=== PATIENT | male | born 1935 | race Caucasian/White ===

== ENCOUNTER 2019-12-12 12:03 | Outpatient (CLI) | payer MEDICARE, SELFPAY ==
--- NOTE | ~2019-12-12 | XR_ITS ---
EXAMINATION: XR hip RT min 2V DATE: 12/12/2019 12:27 INDICATION: Right hip pain. TECHNIQUE: 3 views of right hip were obtained. COMPARISON: None. FINDINGS: Bone alignment is normal. No fracture. There is mild right hip osteoarthritis. IMPRESSION: 1. Mild right hip osteoarthritis. Reviewed, dictated and finalized at location A.
--- NOTE | ~2019-12-12 | XR_ITS ---
EXAMINATION: XR knee RT 3V DATE: 12/12/2019 12:26 INDICATION: Right knee pain. TECHNIQUE: 3 views of right knee were obtained. COMPARISON: None. FINDINGS: Bone alignment is normal. No fracture. There is moderate osteoarthritis of medial compartme nt and mild osteoarthritis of lateral and patellofemoral compartments. No knee joint effusion. IMPRESSION: 1. Moderate right knee osteoarthritis. Reviewed, dictated and finalized at location A.
== END 2019-12-12 12:04 | disposition home or self-care (01) ==
LOC: ANHIMG 12:15
PROVIDERS: PCP Family Medicine; Visit Provider Family Medicine
DX: M17.11 Unilateral primary osteoarthritis, right knee (principal); M16.11 Unilateral primary osteoarthritis, right hip
CPT/HCPCS: 73502; 73562

== ENCOUNTER 2020-09-14 12:40 | Emergency (ER) | payer MEDICARE, SELFPAY ==
[2020-09-14 12:45] VITALS: BP 123/82; PULSE 76; RESP 16; TEMP 36.8; O2SAT 98
--- NOTE | 2020-09-14 12:56 | ED.UPPEXIN ---
HPI - Extremity Injury (Upper) General Chief Complaint: Extremity Injury, Upper Stated Complaint: POSSIBLE INFECTED FINGER Source: patient Mode of arrival: ambulatory Limitations: no limitations History of Present Illness HPI narrative: this is a an 85-year-old male that presents after he was cut approximately 3 weeks ago and there is a an area that is healing on the left ring finger with some mild swelling warmth and tenderness with no fever chills no no recent injury. complaint: injury to: left Other Extremity Injury: Left: fingers ( left ring finger with some mild tenderness and swelling) Handedness: right Place: home Severity: mild Related Data Home Medications Medication Instructions Recorded Confirmed albuterol sulfate 90 mcg/actuation 2 inhalation INHALATION Q6H PRN 12/11/19 09/14/20 breath activated powder inhaler budesonide-formoterol HFA 160 2 puff INHALATION Q12H 12/11/19 09/14/20 mcg-4.5 mcg/actuation aerosol inhaler etanercept 25 mg SUB-Q WEEKLY 12/11/19 09/14/20 simvastatin 40 mg tablet 40 mg PO DAILY 12/11/19 09/14/20 Allergies Allergy/AdvReac Type Severity Reaction Status Date / Time No Known Allergies Allergy Verified 09/14/20 12:54 Review of Systems Review of Systems: All systems reviewed & are unremarkable except as noted in HPI and below PMFSH Past Medical History Medical History COPD (chronic obstructive pulmonary disease) History of tobacco abuse JANIS (obstructive sleep apnea) Osteopenia Rheumatoid arthritis SCC (squamous cell carcinoma), scalp/neck Family History Family History Sibling Family history of arthritis Acute myocardial infarction Family history of lung cancer Father Family history of malignant neoplasm Family history of pancreatic cancer Mother Family history of malignant neoplasm of cervix Acute myocardial infarction Social History Social History Smoking status: Never smoker Second hand tobacco smoke exposure: No Smoking end date: 04/10/89 Alcohol intake: never Exam Const: General: no acute distress and alert Orientation/consciousness: patient oriented x3 HENMT: Head: normal to inspection Eyes: Conjunctivae: conjunctivae normal Pupils: Equal, round and reactive pupils present Neck: Neck: normal visual inspection Chest: Chest palpation & inspection: normal inspection of the chest Resp: Effort & Inspection: normal respiratory effort Cardio: Rate: regular rate Rhythm: regular rhythm GI: GI Palp: Yes Soft to palpation Skin: Other: Area of erythema left ring finger mildly tender and swollen Neuro: General: patient oriented x3 Extrem: General: normal to inspection and no pedal edema Psych: Mental Status: mental status grossly normal Course Course Emergency Course: assessed patient's left ring finger does not appear to have any foreign objects, no recent injury and will send antibiotic to his pharmacy and advised follow-up with his primary care doctor Critical Care Time Critical Care Time Critical Care Time: No Discharge Plan Discharge Clinical Impression: Cellulitis Qualifiers: Site of cellulitis: extremity Site of cellulitis of extremity: finger Laterality: left Qualified Code(s): L03.012 - Cellulitis of left finger Patient Disposition: Home, Self-Care Condition: Stable Instructions: Antibiotic Form, Cellulitis (ED) Additional Instructions: advised patient to take medicine as prescribed and follow-up with his primary care physician if symptoms persist or worsen. Prescriptions: New amoxicillin-pot clavulanate [Augmentin] 875-125 mg tablet 1 tablet PO Q12H Qty: 20 RF: 0 No Action Enbrel 25 mg/0.5 mL (0.5) syringe 25 mg SUB-Q WEEKLY RF: 0 albuterol sulfate 90 mcg/actuation aerosol powdr breath activated 2 inhalati
== END 2020-09-14 13:12 | disposition home or self-care (01) ==
PROVIDERS: Emergency Provider Emergency Medicine; PCP Family Medicine
DX: L03.012 Cellulitis of left finger (principal)
CPT/HCPCS: 99283

== ENCOUNTER 2022-11-18 09:37 | Emergency (ER) | payer MEDICARE, SELFPAY ==
[2022-11-18] VITALS (22 sets, daily range): BP systolic 114–156; BP diastolic 56–103; PULSE 70–81; RESP 20; TEMP 36.3–36.4; O2SAT 91–100
--- NOTE | ~2022-11-18 | CT_ITS ---
EXAMINATION: CT brain wo con DATE: 11/18/2022 10:54 INDICATION: Head injury. TECHNIQUE: Computed tomography (CT) of the head was performed without intravenous contrast. The mA wa s adjusted according to patient size. Iterative reconstruction technique was employed. The dose-lengt h product was 681.00 mGy-cm. COMPARISON: None FINDINGS: There are scattered areas of low attenuation in the cerebral white matter, which is within normal limits for the patient's age. There is no intracranial hemorrhage, acute infarction, or abnorm al intracranial mass lesion. The ventricles are normal in size. There is mucosal thickening in the pa ranasal sinuses. There are likely changes of ocular lens replacement surgeries. There is a small left mastoid effusion. IMPRESSION: 1. Normal aging brain. Reviewed, dictated and finalized at location A. IMPRESSION: 1. Normal aging brain.
--- NOTE | ~2022-11-18 | CT_ITS ---
EXAMINATION: CT cervical spine wo con DATE: 11/18/2022 10:54 INDICATION: Head injury. TECHNIQUE: Computed tomography (CT) of the cervical spine was performed without intravenous contrast. Automated exposure control and iterative reconstruction technique were employed. The dose-length pro duct was 518.34 mGy-cm. COMPARISON: None FINDINGS: The visualized portions of the lung apices demonstrate emphysema. There is a small left mas toid effusion. There is 5 degrees dextrocurvature of cervical spine. Vertebral body heights are suad l. There is interbody fusion at C3-C4. There is mildly decreased disc height at C2-C3 and C4-C5. Ther e is moderately decreased disc height at C5-C6 and C6-C7. There are changes of posterior fusion proce dure at T1-T2 including fusion of the spinous processes with a [place] of wire. The following disc lev els are specifically discussed: C2-C3: There is mild bilateral uncovertebral joint osteoarthritis. There is severe right and mild lef t facet joint osteoarthritis. There is no neural foraminal stenosis. There is mild central canal sten osis. C3-C4: There is no uncovertebral joint hypertrophy. There is ankylosis of the facet joints without hy pertrophy. There is no neural foraminal stenosis. There is no central canal stenosis. C4-C5: There is severe right and moderate left uncovertebral joint osteoarthritis. There is severe bi lateral facet joint osteoarthritis. There is moderate right and mild left neural foraminal stenosis. There is mild central canal stenosis. C5-C6: There is moderate and severe left uncovertebral joint osteoarthritis. There is severe right an d moderate left facet joint osteoarthritis. There is mild right and moderate left neural foraminal st enosis. There is mild central canal stenosis. C6-C7: There is moderate bilateral uncovertebral joint osteoarthritis. There is severe right and mild left facet joint osteoarthritis. There is mild bilateral neural foraminal stenosis. There is mild ce ntral canal stenosis. C7-T1: There is no uncovertebral joint osteoarthritis. There is mild bilateral facet joint osteoarthr itis. There is no neural foraminal stenosis. There is no central canal stenosis. IMPRESSION: 1. No fracture. 2. Moderate cervical spondylosis. Reviewed, dictated and finalized at location A.
--- NOTE | ~2022-11-18 | CT_ITS ---
EXAMINATION: CT chest abdomen pelvis wo con DATE: 11/18/2022 10:56 INDICATION: Fall with head injury TECHNIQUE: Computed tomography (CT) of the chest, abdomen, and pelvis was performed without intraveno us contrast. Automated exposure control and iterative reconstruction technique were employed. The dos e-length product was 518.34 mGy-cm. COMPARISON: CT studies dated 10/17/2014 and 11/20/2013 FINDINGS: CHEST CT: Moderate emphysema. 3.7 x 2.3 cm pleural-based mass along the posterior right lower lobe. There is an additional 8 mm subpleural nodule in the right lower lobe along the posterior aspect of the right he midiaphragm. Calcified nodule in the left lower lobe and calcified left hilar lymph node consistent w ith old granulomatous disease. There are a few additional scattered bilateral <4 mm pulmonary nodules . Unilateral mild groundglass opacities and septal line thickening in the peripheral right lower lobe with associated honeycombing which has increased since the prior studies suggesting progression of u sual interstitial pneumonia (UIP) pattern chronic interstitial lung disease. Heart size is normal. At herosclerotic coronary artery calcific lesion. No pericardial or pleural effusion. Aortic valve calci fication. Thoracic aorta is normal in caliber. No pathologically enlarged thoracic lymphadenopathy. S mall sliding-type hiatal hernia. Mild to moderate thoracic spondylosis. Cerclage wire about the T1 an d T2 spinous processes. No acute osseous abnormality. ABDOMEN/PELVIS CT: There are calcified gallstones in the dependent aspect of the otherwise normal appearing gallbladder. Additional 6 mm calcified gallstone in the distal common bile duct with mild dilation of the common bile duct to 11 mm and with mild intrahepatic biliary ductal dilation. Splenic calcification consiste nt with old granulomatous disease. Couple punctate peripheral calcifications at the head and tail of the pancreas, likely sequela of chronic pancreatitis. Bilateral adrenal glands are normal. There are bilateral renal cysts the largest in each kidney measuring up to 2.1 cm. There is moderate colonic di verticulosis with a sigmoid predominance. There is no adjacent inflammatory change to suggest divert iculitis. Small bowel and appendix are normal. Bladder is normal. No free intraperitoneal gas or flui d. No pathologically enlarged abdominal or pelvic lymphadenopathy. Moderate to severe lumbar spondylo sis with chronic L1 compression fracture with two thirds anterior vertebral body height loss. IMPRESSION: 1. Moderate emphysema with 3.7 x 2.3 cm pleural-based mass in the right lower lobe which is concernin g for primary bronchogenic carcinoma. If patient is a biopsy candidate not requiring supplemental oxy gen at baseline would recommend percutaneous CT-guided biopsy for further evaluation. 2. Cholelithiasis and choledocholithiasis with mild intra and extra hepatic biliary ductal dilation. Correlate with liver function tests and consider ERCP for stone extraction as clinically indicated. 3. Diverticulosis. Reviewed, dictated and finalized at location B. IMPRESSION: 1. Moderate emphysema with 3.7 x 2.3 cm pleural-based mass in the right lower l obe which is concerning for primary bronchogenic carcinoma. If patient is a bio psy candidate not requiring supplemental oxygen at baseline would recommend per cutaneous CT-guided biopsy for further evaluation. 2. Cholelithiasis and choledocholithiasis with mild intra and extra hepatic julia iary ductal dilation. Correlate with liver function tests and consider ERCP for stone extraction as clinically indicated. 3. Diverticulosis.
--- NOTE | 2022-11-18 10:02 | ED.FALL ---
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 He is not sure what happened he has tried be real careful. he was standing 7 or 8 ft up on top of the tractor trying to put a 23 in x 9 ft piece of garage door paneling up in his barn rafters all by himself. Fell from the truck laceration left ear and has multiple contusions. denies any chest pain shortness of breath back pain. Says his hips are sore especially his left. Skin tears to his elbows left shoulder left leg. denies any shortness of breath difficulty breathing cough sore throat runny nose dizziness lightheadedness headache neck pain numbness or tingling nausea vomiting diarrhea lumps or bumps or swelling. Previously well. past medical history: Rheumatoid arthritis COPD hyperlipidemia Past surgical history: Upper back surgery tonsillectomy allergies no known allergies Related Data Home Medications Medication Instructions Recorded Confirmed albuterol sulfate 90 mcg/actuation 2 inhalation inhalation Q6H PRN 12/11/19 11/18/22 breath activated powder inhaler Wheezing etanercept 25 mg/0.5 mL (0.5 mL) 25 mg subcut .every other week 12/15/20 11/18/22 subcutaneous syringe (Enbrel) simvastatin 10 mg tablet 10 mg PO DAILY 11/18/22 11/18/22 Allergies Allergy/AdvReac Type Severity Reaction Status Date / Time No Known Allergies Allergy Verified 11/18/22 09:38 [facility] Past Medical History Medical History COPD (chronic obstructive pulmonary disease) Encounter for immunization History of tobacco abuse JANIS (obstructive sleep apnea) Osteopenia Rheumatoid arthritis SCC (squamous cell carcinoma), scalp/neck Weakness of right hip Family History Family History Sibling Family history of arthritis Acute myocardial infarction Family history of lung cancer Father Family history of malignant neoplasm Family history of pancreatic cancer Mother Family history of malignant neoplasm of cervix Acute myocardial infarction Social History Social History (Updated 04/15/22 @ 09:41 by Monserrat Santos MA) Smoking packs per day: 1 Smoking cigarettes per day: 20.0 Years smoked: 30 Smoking pack-years: 30.00 Smoking status: Former smoker Second hand tobacco smoke exposure: Yes Smoking end date: 04/10/88 Alcohol intake: never Substance use: never Substance use type: does not use Gender identity (if verbalized by the patient): Male Exam Narrative: Elderly white male alert and oriented x4. Cooperative no apparent distress. Head: Nontender his left ear is lacerations through the auricle. Eyes conjunctiva pink sclera nonicteric extraocular movements are intact. Tympanic membranes are normal. Oropharynx clear moist mucous membranes without exudates. Neck is supple nontender no lymphadenopathy. Back is nontender. lungs clear heart is regular rate rhythm without murmurs gallops or rubs. Abdomen is soft nontender no hepatosplenomegaly or masses no CVA tenderness no abdominal bruits. Extremities no cyanosis clubbing or edema. Left shoulder is bruised is of got a small skin tear. Left elbow skin contusion with large amount of skin tear. Right elbow small skin tears. Upper extremities have full range of motion are nontender. Radial pulse +2 got a bruise swelling his left thigh proximal. Hips have full range of motion are nontender. Small skin tears lower left leg. All joints in the lower extremities show full range of motion nontender. DP and PT are +2 for lower extremities. Neurological motor and sensory are normal. Is oriented x4 speech is normal. MDM - Fall MDM Narrative Medical decision making narrative: Patient is p
--- NOTE | 2022-11-18 10:03 | ECG_ITS ---
Measurements Intervals [place] Rate: 67 P: 72 TX: 191 QRS: 49 QRSD: 101 T: 8 QT: 393 QTc: 417 Interpretive Statements SINUS RHYTHM WITH OCCASIONAL VENTRICULAR PREMATURE COMPLEXES NONSPECIFIC ST ABNORMALITY ABNORMAL ECG NO PREVIOUS ECG AVAILABLE FOR COMPARISON Electronically Signed On 11-19-2022 12:43:20 CDT by Mike Joseph M.D.
--- NOTE | 2022-11-18 10:13 | PC.NURSE ---
ERP spoke with about need for geriatric trauma transfer, Patient and request [facility].
[2022-11-18 10:31] LABS: Hematocrit 43.1 % (37.0-46.0); Immature Platelet Fraction Pct 3.6 % (1.0-7.0); Mean Corpuscular HGB Conc 32.5 g/dL (32.0-36.0); Mean Corpuscular Hemoglobin 31.4 pg (27.0-31.0); Mean Corpuscular Volume 96.6 fL (78.0-102.0); Mean Platelet Volume 11.5 fl (8.7-11.0); Platelet Count Result 52 K/mm3 (150-420); Red Blood Count 4.46 M/mm3 (4.70-6.10); Red Cell Distribution Width 12.9 % (11.6-14.4); White Blood Count 7.6 K/mm3 (4.8-10.8)
[2022-11-18 10:47] LABS: Partial Thromboplastin Time 23.7 SEC (23.90-30.70); Prothrombin Time 10.5 Seconds (9.50-12.10)
[2022-11-18 10:49] LABS: Alanine Aminotransferase 15 U/L (16-63); Albumin Level 3.3 g/dL (3.4-5.0); Alkaline Phosphatase 42 U/L (46-116); Anion Gap 7 mmol/L (8-16); Aspartate Amino Transferase 15 U/L (15-37); Bilirubin,Total 0.5 mg/dL (0.00-1.00); Blood Urea Nitrogen 22 mg/dL (7-18); Carbon Dioxide 29 mmol/L (21-32); Chloride 102 mmol/L (98-108); Estimated Glomerular Filt Rate > 60; Glucose 111 mg/dL (70-99); Osmolality Calculated 290 mOsm/kg (285-295); Potassium 4.5 mmol/L (3.5-5.1); Sodium 138 mmol/L (136-145); Total Protein 7.3 g/dL (6.4-8.2); Troponin I 5.2 ng/L (0.00-60.4)
[2022-11-18 11:07] LABS: Hematocrit 40.4 % (37.0-46.0); Hemoglobin 13.8 g/dL (12.4-15.3); Mean Corpuscular HGB Conc 34.2 g/dL (32.0-36.0); Mean Corpuscular Hemoglobin 31.8 pg (27.0-31.0); Mean Corpuscular Volume 93.1 fL (78.0-102.0); Mean Platelet Volume 9.1 fl (8.7-11.0); Platelet Count Result 187 K/mm3 (150-420); Red Blood Count 4.34 M/mm3 (4.70-6.10); Red Cell Distribution Width 12.7 % (11.6-14.4); White Blood Count 9.4 K/mm3 (4.8-10.8)
== END 2022-11-18 12:43 | disposition short-term general hospital (02) ==
PROVIDERS: Emergency Provider Emergency Medicine; PCP Family Medicine
DX: S01.312A Laceration without foreign body of left ear, initial encounter (principal); S51.012A Laceration without foreign body of left elbow, initial encounter; S41.012A Laceration without foreign body of left shoulder, initial encounter; S81.812A Laceration without foreign body, left lower leg, initial encounter; R91.8 Other nonspecific abnormal finding of lung field; M06.9 Rheumatoid arthritis, unspecified; J44.9 Chronic obstructive pulmonary disease, unspecified; E78.5 Hyperlipidemia, unspecified; Z87.891 Personal history of nicotine dependence; Z79.899 Other long term (current) drug therapy; Z85.828 Personal history of other malignant neoplasm of skin; W30.89XA Contact with other specified agricultural machinery, initial encounter
CPT/HCPCS: 36415; 70450; 71250; 72125; 74176; 80053; 84484; 85027; 85055; 85610; 85730; 93005; 99285

== ENCOUNTER 2022-12-02 11:12 | Outpatient (CLI) | payer MEDICARE, SELFPAY ==
[2022-11-29 16:04] VITALS: BMI 26.5
--- NOTE | 2022-11-29 16:05 | PC.NURSE ---
Pre Radiology instructions Report to the IMAGING ENTRANCE on date _12/02/22____ at time __10:30AM for procedure Time: _11:00AM___ YOU MAY BE MONITORED AT HOSPITAL FOR UP TO 4 HOURS AFTER YOUR PROCEDURE. NO LABS NEEDED. A visitor will be allowed to accompany the patient into the hospital. You and your visitor will be asked to self-screen and do not enter if you have any COVID symptoms. A mask is OPTIONAL within the hospital. Patients are to have no food or drink 6 hours prior to procedure time Driving will be restricted after the procedure, you must have a person to drive you home. Labs will be drawn in preop area and once reviewed, you will be taken to radiology area for procedure. When the procedure is completed, you will be taken to outpatient where you will be monitored for several hours. You may have one visitor in this area. Other than holding anti-coagulants, patient may take other medication(s) as scheduled. Prior to your appointment date patients are instructed to hold anti-coagulants after discussing with ordering provider to stop. If unable to discontinue anti-coagulants please notify radiologist. ? No aspirin or warfarin (Coumadin) for 7 days prior to the procedure. ? No clopidogrel (Plavix), ticagrelor (Brilinta), prasugrel (Effient) or dabigatran (Pradaxa) for 5 days prior to the procedure. ? No rivaroxaban (Xarelto), apixaban (Eliquis), dipyridamole (Aggrenox or Persantine) or cilostazol (Pletal) for 2 days prior to the procedure. Medications to discontinue per physician: __NONE Date to take last dose: Please leave all valuables, including medications, at home the day of procedure. The hospital will not accept responsibility for valuables. Wear comfortable, loose fitting clothing.? Follow any additional instructions given to you from ordering provider. Telephone instructions given to __PATIENT'S WIFE and asked if any additional questions and then verbalized understanding. Patient advised to call scheduling provider office or registration scheduling [phone] if any additional questions.
[2022-12-02] VITALS (11 sets, daily range): BP systolic 136–152; BP diastolic 68–84; PULSE 58–66; RESP 16–19; O2SAT 98–100
--- NOTE | ~2022-12-02 | XR_ITS ---
EXAMINATION: XR chest 1V portable DATE: 12/02/2022 13:02 INDICATION: Right lung nodule status post percutaneous biopsy. TECHNIQUE: A single frontal view of the chest was obtained on 2 radiographs. COMPARISON: Chest single view at 11:[address] 11/18/2022 FINDINGS: There are lucencies and interstitial opacities throughout the lungs bilaterally. No pleural effusion or pneumothorax. The heart size is normal. There is wire fixation of cervical spine. IMPRESSION: 1. Diffuse lung disease, likely a combination of emphysema and chronic interstitial lung disease. Reviewed, dictated and finalized at location A. IMPRESSION: 1. Diffuse lung disease, likely a combination of emphysema and chronic intersti tial lung disease.
--- NOTE | ~2022-12-02 | CT_ITS ---
EXAMINATION: CT biopsy lung w/imaging DATE: 12/02/2022 11:54 INDICATION: Right lung lower lobe mass. TECHNIQUE: The procedure including the risks, benefits, and alternatives and possibility of chest tub e placement were discussed with the patient. Risks discussed included infection, hemorrhage, approxim ately 1/3 risk of pneumothorax, approximately 1/10 risk of pneumothorax severe enough to warrant ches t tube placement, and rarely . The patient understood the risks and agreed to proceed. The patie nt was placed prone. The skin overlying the right lung lower lobe was prepped and draped in sterile fashion. Anesthetic was administered with 1% lidocaine subcutaneously. A 19 gauge outer needle was advanced under CT guidance to the lesion of interest. A 20 gauge core biopsy needle was then used to obtain 3 core biopsy specimens. The needle was removed and the entry site was cleaned and dressed. Th e mA was adjusted according to patient size. Iterative reconstruction technique was employed. The dos e-length product was 172.83 mGy-cm. There were no immediate complications. FINDINGS: CT images demonstrate the outer needle tip adjacent to a 3.5 x 2.7 cm pleural-based mass in right lung lower lobe.. IMPRESSION: 1. CT-guided core needle biopsy of a mass in right lung lower lobe. Reviewed, dictated and finalized at location A.
--- NOTE | ~2022-12-02 | XR_ITS ---
XR chest 1V 12/02/2022 11:49 Indication: Status post right lung biopsy Procedure: AP view of the chest Comparison: 07/17/2012 Findings: Heart size normal. There is emphysema. There is bibasilar scarring. There are prominent julia ateral nipple shadows. There is right apical scarring. No pneumothorax is identified. No acute osseou s abnormality. Impression: 1: No pneumothorax identified post biopsy. Reviewed, dictated and finalized at location B. Impression: 1: No pneumothorax identified post biopsy.
--- NOTE | ~2022-12-02 | XR_ITS ---
EXAMINATION: XR chest 1V portable DATE: 12/02/2022 14:37 INDICATION: Right lung nodule status post percutaneous biopsy. TECHNIQUE: A single frontal view of the chest was obtained. COMPARISON: Chest single view at 12:49 PM FINDINGS: There are lucencies and interstitial opacities throughout the lungs. No pleural effusion or pneumothorax. The heart size is normal. There is wire fixation of the cervical spine. IMPRESSION: 1. Diffuse lung disease, likely a combination of emphysema and chronic interstitial lung disease. Reviewed, dictated and finalized at location A. IMPRESSION: 1. Diffuse lung disease, likely a combination of emphysema and chronic intersti tial lung disease.
== END 2022-12-02 14:55 | disposition home or self-care (01) ==
PROVIDERS: PCP Family Medicine; Referring Provider Nurse Practitioner Family; Visit Provider Radiology Diagnostic Radiology
PROC: BB24ZZZ Computerized Tomography (CT Scan) of Bilateral Lungs (ICD-10-PCS; CPT 32408; principal; 2022-12-02 11:00)
DX: C34.31 Malignant neoplasm of lower lobe, right bronchus or lung (principal)
CPT/HCPCS: 32408; 71045; 88305; 88342

== ENCOUNTER 2022-12-14 11:44 | Outpatient (CLI) | payer MEDICARE, SELFPAY ==
[2022-12-14 12:01] LABS: Basophils Absolute Auto 0.1 K/mm3 (0.0-0.1); Basophils Percent Auto 0.9 % (0.2-1.2); Eosinophils Absolute Auto 0.4 K/mm3 (0-0.3); Eosinophils Percent Auto 5.3 % (0-4.4); Hematocrit 40.9 % (42.0-52.0); Immature Granulocyte Absolute 0.02 K/mm3 (0.00-0.031); Immature Granulocyte Percent A 0.3 % (0-0.5); Lymphocytes Absolute Auto 2.32 K/mm3 (0.9-3.2); Mean Corpuscular HGB Conc 34.2 g/dl (32-36); Mean Corpuscular Hemoglobin 32.6 pg (26-34); Mean Corpuscular Volume 95.1 fl (80-100); Monocytes Absolute Auto 0.8 K/mm3 (0.1-0.6); Monocytes Percent Auto 12.2 % (2.6-8.5); Neutrophils Absolute Auto 3.2 K/mm3 (1.3-6.7); Neutrophils Percent Auto 47.3 % (45.5-73.1); Platelet Count Result 209 k/mm3 (150-375); Red Cell Distribution Width 12.8 % (11.5-14.5); White Blood Count 6.8 K/mm3 (4.5-10.0)
[2022-12-14 12:49] LABS: Alanine Aminotransferase 26 U/L (6-50); Albumin Level 4.2 g/dL (3.5-5.1); Alkaline Phosphatase 62 U/L (38-126); Anion Gap 6 mmol/L (8-16); Aspartate Amino Transferase 26 U/L (17-59); Bilirubin,Total 0.5 mg/dL (0.2-1.3); Blood Urea Nitrogen 21 mg/dL (9-20); Calcium 9.4 mg/dL (8.4-10.2); Carbon Dioxide 26 mmol/L (22-30); Chloride 103 mmol/L (98-107); Estimated Glomerular Filt Rate > 60; Glucose 93 mg/dL (65-110); Potassium 5.4 mmol/L (3.4-5.0); Sodium 135 mmol/L (137-145)
== END 2022-12-14 11:45 | disposition home or self-care (01) ==
LOC: ANHLAB 11:47
PROVIDERS: Internal Medicine; PCP Family Medicine; Visit Provider Internal Medicine Hematology & Oncology
DX: C34.90 Malignant neoplasm of unspecified part of unspecified bronchus or lung (principal)
CPT/HCPCS: 36415; 80053; 85025

== ENCOUNTER 2022-12-22 07:20 | Outpatient (CLI) | payer MEDICARE, SELFPAY ==
--- NOTE | ~2022-12-22 | MR_ITS ---
EXAMINATION: MR brain/brain stem wo/w con DATE: 12/22/2022 08:38 INDICATION: Small cell lung cancer. TECHNIQUE: Magnetic resonance imaging (MRI) of the brain and brainstem was performed without and with 15 mL MultiHance intravenous contrast. COMPARISON: Head CT 11/18/22 FINDINGS: There are scattered areas of nonspecific increased T2-weighted signal intensity in the cere bral white matter. There is no intracranial hemorrhage, acute infarction, or abnormal intracranial ma ss lesion. The ventricles are normal in size. There is mucosal thickening in the paranasal sinuses. T here are likely changes of ocular lens replacement surgeries. The mastoid air cells are normal. IMPRESSION: 1. No evidence of metastatic disease. 2. Mild nonspecific cerebral white matter disease, which likely represents chronic small vessel ische donald disease. Reviewed, dictated and finalized at location A. IMPRESSION: 1. No evidence of metastatic disease. 2. 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
--- NOTE | ~2022-12-22 | PE_ITS ---
EXAMINATION: PET skull to mid thigh DATE: 12/22/2022 11:42 INDICATION: Small cell lung cancer. TECHNIQUE: Blood glucose level was 78 mg/dL. 9.329 mCi of 18-fluorodeoxyglucose (18-FDG) was administ ered i.v. Low dose computed tomography (CT) images were acquired from the base of the brain to the pr oximal thighs for attenuation correction and anatomic localization. Automated exposure control was em ployed. Dose-length product (DLP) was 765 mGy-cm. Positron emission tomography (PET) images were acqu ired in the same distribution. COMPARISON: CT chest, abdomen, and pelvis 11/18/2022 FINDINGS: Head/neck: There are no pathologically enlarged lymph nodes. Chest: There is moderate emphysema. In the right lower lobe, there is an 11 mm nodule without increas ed activity. In the right lower lobe, there is a 3.6 x 2.4 cm mass abutting the pleura with maximum S UV of 13.4. In the right lower lobe, there is an 8 mm nodule at the bronchus to this mass with maximu m SUV of 5.1. In the right lower lobe, there is a 3.9 x 1.0 cm mass abutting the pleura with maximum SUV of 8.6. No pleural effusion. The heart size is normal. There are coronary artery calcifications. No pericardial effusion. There is a small sliding hiatal hernia. There is a normal-sized right hilar lymph node with maximum SUV of 4.6. Abdomen/pelvis/proximal thighs: The liver is normal. There are gallstones in the gallbladder, which i s normal in size. Calcifications in the spleen are consistent with old granulomatous disease. The cash creas is normal. There is an 8 mm stone in the common bile duct. The adrenal glands are normal. There are cysts in the kidneys measuring up to 21 mm in the left. There is calcified atherosclerosis of th e aorta and many of the other arteries. The prostate is mildly enlarged. There is diverticulosis of t he colon without evidence of diverticulitis. The appendix is normal. There are no pathologically enla rged lymph nodes. There is no free intraperitoneal fluid. There is no osseous malignancy. There is a bone graft harvest site in left ilium. IMPRESSION: 1. 3.6 x 2.4 cm mass in right lung lower lobe with maximum SUV of 13.4, consistent with primary malig gabriel. 2. 8-mm right lower lobe pulmonary nodule with increased activity and normal-sized right hilar lymph node with increased activity, consistent with metastatic disease. 3. 11 mm right lower lobe pulmonary nodule without increased activity, probably benign. 4. Peripheral 3.9 x 1.0 cm mass in right lower lobe with increased activity, which may be infection/i nflammation or less likely malignancy. Reviewed, dictated and finalized at location A. IMPRESSION: 1. 3.6 x 2.4 cm mass in right lung lower lobe with maximum SUV of 13.4, consist ent with primary malignancy. 2. 8-mm right lower lobe pulmonary nodule with increased activity and normal-si zed right hilar lymph node with increased activity, consistent with metastatic disease. 3. 11 mm right lower lobe pulmonary nodule without increased activity, probably benign. 4. Peripheral 3.9 x 1.0 cm mass in right lower lobe with increased activity, wh ich may be infection/inflammation or less likely malignancy.
[2022-12-22 09:44] LABS: Glucose Point of Care 78 mg/dl (65-105)
== END 2022-12-22 07:21 | disposition home or self-care (01) ==
PROVIDERS: Internal Medicine Hematology & Oncology; PCP Family Medicine; Visit Provider Internal Medicine
DX: C34.91 Malignant neoplasm of unspecified part of right bronchus or lung (principal); C34.11 Malignant neoplasm of upper lobe, right bronchus or lung
CPT/HCPCS: 70553; 78815; A9552; A9577

== ENCOUNTER 2023-01-13 12:29 | Outpatient (CLI) | payer MEDICARE, SELFPAY ==
[2023-01-13 12:48] LABS: Basophils Absolute Auto 0.1 K/mm3 (0.0-0.1); Basophils Percent Auto 0.9 % (0.2-1.2); Eosinophils Absolute Auto 0.2 K/mm3 (0-0.3); Eosinophils Percent Auto 4.3 % (0-4.4); Hematocrit 42.9 % (42.0-52.0); Hemoglobin 13.6 g/dL (14.0-18.0); Immature Granulocyte Absolute 0.01 K/mm3 (0.00-0.031); Immature Granulocyte Percent A 0.2 % (0-0.5); Immature Platelet Fraction Pct 2.8 % (0.9-11.2); Lymphocytes Absolute Auto 1.98 K/mm3 (0.9-3.2); Lymphocytes Percent Auto 35.5 % (18.3-44.2); Mean Corpuscular HGB Conc 31.7 g/dl (32-36); Mean Corpuscular Hemoglobin 31.4 pg (26-34); Mean Corpuscular Volume 99.1 fl (80-100); Monocytes Absolute Auto 0.6 K/mm3 (0.1-0.6); Monocytes Percent Auto 11.5 % (2.6-8.5); Neutrophils Absolute Auto 2.7 K/mm3 (1.3-6.7); Neutrophils Percent Auto 47.6 % (45.5-73.1); Platelet Count Result 182 k/mm3 (150-375); Red Blood Count 4.33 M/mm3 (4.6-6.20); Red Cell Distribution Width 12.4 % (11.5-14.5); White Blood Count 5.6 K/mm3 (4.5-10.0)
[2023-01-13 12:49] LABS: Blood Urea Nitrogen 25 mg/dL (8-26); Carbon Dioxide 24 mmol/L (22-30); Chloride 100 mmol/L (98-109); Estimated Glomerular Filt Rate > 60; Glucose 99 mg/dL (70-105); Ionized Calcium (POC) 1.11 mmol/L (1.11-1.31); Potassium 4.3 mmol/L (3.5-4.9); Sodium 134 mmol/L (138-146)
[2023-01-13 16:27] LABS: Alanine Aminotransferase 24 U/L (6-50); Albumin Level 3.9 g/dL (3.5-5.1); Alkaline Phosphatase 47 U/L (38-126); Anion Gap 10 mmol/L (8-16); Aspartate Amino Transferase 28 U/L (17-59); Bilirubin,Total 0.4 mg/dL (0.2-1.3); Blood Urea Nitrogen 25 mg/dL (9-20); Calcium 8.6 mg/dL (8.4-10.2); Carbon Dioxide 20 mmol/L (22-30); Chloride 100 mmol/L (98-107); Estimated Glomerular Filt Rate > 60; Glucose 98 mg/dL (65-110); Potassium 4.3 mmol/L (3.4-5.0); Sodium 130 mmol/L (137-145)
== END 2023-01-13 12:30 | disposition home or self-care (01) ==
LOC: ANHLAB 12:34
PROVIDERS: PCP Family Medicine; Visit Provider Internal Medicine Hematology & Oncology
DX: C34.90 Malignant neoplasm of unspecified part of unspecified bronchus or lung (principal)
CPT/HCPCS: 36415; 80047; 80053; 85025; 85055

== ENCOUNTER 2023-01-20 15:20 | Outpatient (CLI) | payer MEDICARE, SELFPAY ==
[2023-01-20 15:53] LABS: Partial Thromboplastin Time 25.1 SEC (23.90-30.70); Prothrombin Time 10.9 Seconds (9.50-12.10)
== END 2023-01-20 15:21 | disposition home or self-care (01) ==
LOC: CHSLAB 15:23
PROVIDERS: PCP Family Medicine; Visit Provider Surgery
DX: Z01.818 Encounter for other preprocedural examination (principal); C34.90 Malignant neoplasm of unspecified part of unspecified bronchus or lung
CPT/HCPCS: 36415; 85610; 85730

== ENCOUNTER 2023-01-25 01:27 | Day surgery (SDC) | payer MEDICARE, SELFPAY ==
--- NOTE | 2023-01-20 13:12 | PC.NURSE ---
Report to the Outpatient Waiting Room, entrance under the green pavilion located off [facility], at time _0600 on date _01/25/23 . Planned Procedure Time: ___729 . Time changes happen often and if your time is changed the preop area will call you the afternoon before. - You and your visitor will be asked to self-screen and do not enter if you have any COVID symptoms. - A mask is optional within the hospital at this time. Patients may have clear liquids (water, carbonated beverages, clear teas, apple juice) until 3 hours prior to surgery (0430 AM) with a maximum of 20 ounces. - No food from midnight until time of surgery - Infants may have breast milk until 4 hours before surgery, infant formula 6 hours prior to surgery. - Children will be allowed to drink immediately following surgery. If applicable, please bring a bottle or sippy cup to assist with drinking. Juice, water, soda, and popsicles are readily available. For infants on formula, please bring formula the day of surgery. Pacifiers are allowed. Take the following medications with a SIP of water the morning of surgery: _INHALER & TYLENOL IF NEEDED DO NOT STOP ANY OF YOUR OTHER PRESCRIPTION MEDICATIONS PRIOR TO SURGERY ?EXCEPT THE FOLLOWING Medications to discontinue per physician N/A Date to take last dose Please no make-up, nail south korean, hairspray, perfume, deodorant, or body powder the day of surgery. No jewelry (including any body piercings) or valuables the day of surgery, leave them at home. Please take a shower or bath the night before, or the morning of, surgery with an antibacterial soap. Wear comfortable, loose fitting clothing. Children are encouraged to wear pajamas. - Jewelry must be removed prior to entering the operating room. Rings and piercings that are not removed may be cut off. - The hospital will not accept responsibility for valuables. - Please leave all valuables, including medications, at home the day of surgery. If you are going home after surgery, a licensed lifter driver must drive you home. - NO public transportation without another adult if you receive anesthesia. - We recommend that an adult stay with you for 24 hours following discharge. - We also recommend that you do not drive, make important decision, drink alcoholic beverages, or take any drugs that were not prescribed by your health care provider for at least 24 hours after your discharge time. For Pediatric surgeries, we recommend two adults accompany the child home. Follow any additional instructions given to you from your surgeon. If you or anyone in your household have experienced Covid symptoms in the past week, please notify your surgeon or the nurse liaison at the phone number below for possible testing. Telephone instructions given to _[employer]_and asked if any additional questions and then verbalized understanding. Patient advised to call surgeon office or pre surgery nurse liaison [phone] if any additional questions.
[2023-01-20 13:14] VITALS: BMI 25.1
--- NOTE | ~2023-01-25 | XR_ITS ---
EXAMINATION: XR chest port-a-cath/central DATE: 01/25/2023 08:20 INDICATION: Port catheter insertion TECHNIQUE: frontal view of the chest was obtained. COMPARISON: Chest radiograph dated 12/02/[address] dated 11/18/2022 FINDINGS: Left subclavian central venous port catheter with distal tip at the caudal superior vena cava. Increa sed lucency and architectural distortion at the bilateral upper lung zones consistent with emphysema better appreciated on prior CT. Coarse reticular opacities in the bilateral lower lung zones. The rig ht lower lobe mass seen on prior CT is obscured by the diaphragm at the caudal margin of the field-of -view. No pleural effusion or pneumothorax. The cardiomediastinal silhouette is normal. IMPRESSION: 1. Left subclavian central venous port catheter tip at the caudal superior vena cava. No pneumothorax . 2. Emphysema with reticular opacities at the bilateral lower lung zones which could represent mild pu lmonary edema, pneumonia, chronic interstitial lung disease or some combination thereof. Reviewed, dictated and finalized at location A. IMPRESSION: 1. Left subclavian central venous port catheter tip at the caudal superior vena cava. No pneumothorax. 2. Emphysema with reticular opacities at the bilateral lower lung zones which c ould represent mild pulmonary edema, pneumonia, chronic interstitial lung disea se or some combination thereof.
--- NOTE | ~2023-01-25 | XR_ITS ---
XR fl guide central line place DATE: 01/25/2023 08:06 INDICATION: Port-A-Cath TECHNIQUE: Single spot C-arm radiographic exposure of the left upper chest 22.5 seconds total exposure time 0.0634 mGym2 COMPARISON: 12/02/2022 portable AP chest FINDINGS: Left subclavian Port-A-Cath is noted; the distal tip of the catheter is not included within the [id number]. No gross pneumothorax is detected. IMPRESSION: Left Port-A-Cath placement; distal tip not included in [id number] Reviewed, dictated and finalized at Location A. Reviewed, dictated and finalized at location B. IMPRESSION: Left Port-A-Cath placement; distal tip not included in [id number]
[2023-01-25] MEDS: LACTATED RINGERS 1,000 ML 30 ML IV CONT (06:30)
[2023-01-25] MEDS: KETOROLAC 15 MG/ML VIAL (*BKC) IV PUSH (06:30)
--- NOTE | 2023-01-25 07:16 | WPDANESEPPF ---
Anes - Initial Pre Proc Eval Procedure: Operation Date: 01/25/23 07:30 Proposed Procedures p Insertion Reyes Cath - Michelle Whitehead MD Date/Time: 01/25/23 07:16 Surgeon: Michelle Whitehead MD Pre Op Diagnosis: Small cell Lung Patient Data Age: 87 Gender: M Height: 1.78 m Weight: 79.54 kg Allergies Allergy/AdvReac Type Severity Reaction Status Date / Time No Known Allergies Allergy Verified 01/20/23 13:00 Home Medications Medication Instructions Recorded Confirmed Type albuterol sulfate 90 mcg/actuation 2 inhalation inhalation Q6H PRN 12/11/19 01/20/23 History breath activated powder inhaler Shortness Of Breath Or Wheezing etanercept 25 mg/0.5 mL (0.5 mL) 25 mg subcut .every other week 12/15/20 01/20/23 History subcutaneous syringe (Enbrel) budesonide 160 mcg-glycopyr 9 2 inh inhalation BID #10.7 grams 01/31/22 01/20/23 Rx mcg-formot 4.8 mcg/actuation HFA inhaler (Breztri Aerosphere) acetaminophen 650 mg 650 mg PO BID PRN Pain 11/29/22 01/20/23 History tablet,extended release pravastatin 10 mg tablet 5 mg PO DAILY 11/29/22 01/20/23 History folic acid 1 mg tablet 1 mg PO DAILY 01/20/23 01/20/23 History Patient hx anesthesia problems: none Family hx anesthesia problems: none Results Review: All pre-operative results and documents have been reviewed as part of the pre-operative evaluation. [facility] Past Medical History Medical History COPD (chronic obstructive pulmonary disease) Encounter for immunization History of tobacco abuse JANIS (obstructive sleep apnea) Osteopenia Rheumatoid arthritis SCC (squamous cell carcinoma), scalp/neck Weakness of right hip Surgical History Surgical History History of ear surgery Family History Family History Sibling Family history of arthritis Acute myocardial infarction Family history of lung cancer Father Family history of malignant neoplasm Family history of pancreatic cancer Mother Family history of malignant neoplasm of cervix Acute myocardial infarction Social History Social History Smoking packs per day: 3 Smoking cigarettes per day: 60.0 Years smoked: 25 Smoking pack-years: 75.00 Smoking status: Former smoker Tobacco type: cigarettes Second hand tobacco smoke exposure: No Smoking end date: 04/10/88 Alcohol intake: never Substance use: never Substance use type: does not use Lack of Transportation: No Lack of Food: Never True Current Housing: I Have Housing Concerned About Future Housing: No Difficulty Paying Gas/Electric Bills: No Difficulty Paying for Meds: No Currently Unemployed: No Education: High School Diploma/GED Difficulty w/ Childcare or Family Care: No Living arrangements: with family Occupation/Education: retired Gender identity (if verbalized by the patient): Male Sexual Orientation (if Verbalized by the Patient): Straight or Heterosexual Spiritual care concerns: No Agree to blood products: Yes Anes - Eval Final PreProcedure Day of Procedure 01/25/23 07:16 Patient weight: normal Heart: regular rate and rhythm Lungs: clear to auscultation Airway: Mallampati scale class II Neurological: alert and oriented Last oral intake: >/= 8 hours ASA classification: III Emergent: no Anesthetic plan: proceed Anesthesia type and monitoring: general GIVS and standard monitoring Results Review: All pre-operative results and documents have been reviewed as part of the pre-operative evaluation. Informed Consent: The patient's anesthetic plan and its attendant risks and benefits were discussed with the patient/family/POA. Questions were solicited and answers provided to the satisfaction of the patient/family/POA.
--- NOTE | 2023-01-25 07:18 | PM.IMHP ---
H&P: HPI History of Present Illness Date/Time: 01/25/23 07:18 Chief Complaint: right lung cancer Narrative: Pt is a 87 y/o male c R sided lung cancer presenting for VAD placement for chemo access. Pt is going to undergo chemoradiation. Pt denies any previous central venous catheterization. Review of Systems Review of Systems: All systems reviewed & are unremarkable except as noted in HPI and below PMFSH Past Medical History Medical History COPD (chronic obstructive pulmonary disease) Encounter for immunization History of tobacco abuse JANIS (obstructive sleep apnea) Osteopenia Rheumatoid arthritis SCC (squamous cell carcinoma), scalp/neck Weakness of right hip Surgical History Surgical History History of ear surgery Family History Family History Sibling Family history of arthritis Acute myocardial infarction Family history of lung cancer Father Family history of malignant neoplasm Family history of pancreatic cancer Mother Family history of malignant neoplasm of cervix Acute myocardial infarction Social History Social History Smoking packs per day: 3 Smoking cigarettes per day: 60.0 Years smoked: 25 Smoking pack-years: 75.00 Smoking status: Former smoker Tobacco type: cigarettes Second hand tobacco smoke exposure: No Smoking end date: 04/10/88 Alcohol intake: never Substance use: never Substance use type: does not use Lack of Transportation: No Lack of Food: Never True Current Housing: I Have Housing Concerned About Future Housing: No Difficulty Paying Gas/Electric Bills: No Difficulty Paying for Meds: No Currently Unemployed: No Education: High School Diploma/GED Difficulty w/ Childcare or Family Care: No Living arrangements: with family Occupation/Education: retired Gender identity (if verbalized by the patient): Male Sexual Orientation (if Verbalized by the Patient): Straight or Heterosexual Spiritual care concerns: No Agree to blood products: Yes Meds Home Medications and Allergies Home Medications Medication Instructions Recorded Confirmed Type albuterol sulfate 90 mcg/actuation 2 inhalation inhalation Q6H PRN 12/11/19 01/20/23 History breath activated powder inhaler Shortness Of Breath Or Wheezing etanercept 25 mg/0.5 mL (0.5 mL) 25 mg subcut .every other week 12/15/20 01/20/23 History subcutaneous syringe (Enbrel) budesonide 160 mcg-glycopyr 9 2 inh inhalation BID #10.7 grams 01/31/22 01/20/23 Rx mcg-formot 4.8 mcg/actuation HFA inhaler (Breztri Aerosphere) acetaminophen 650 mg 650 mg PO BID PRN Pain 11/29/22 01/20/23 History tablet,extended release pravastatin 10 mg tablet 5 mg PO DAILY 11/29/22 01/20/23 History folic acid 1 mg tablet 1 mg PO DAILY 01/20/23 01/20/23 History Allergies Allergy/AdvReac Type Severity Reaction Status Date / Time No Known Allergies Allergy Verified 01/20/23 13:00 Exam Const: General: cooperative, comfortable, no acute distress and ill appearing Neck: Neck: normal visual inspection, full ROM and no lymphadenopathy Chest: Chest palpation & inspection: normal inspection of the chest Resp: Auscultation: diminished lung sounds Cardio: Rate: regular rate Rhythm: regular rhythm GI: Inspection: normal to inspection Assessment and Plan Assessment and plan (1) Small cell carcinoma of lung: Code(s): C34.90 - Malignant neoplasm of unspecified part of unspecified bronchus or lung Status: Acute Assessment and Plan: will setup for VAD placement in OR for chemo access
--- NOTE | 2023-01-25 07:21 | WPDHPUPDATE1 ---
History and Physical Update Update Date/Time: 01/25/23 07:21 History and Physical has been reviewed, including an updated exam of the patient. There are NO changes in the patient's condition. Risks, benefits, and alternatives have been discussed and questions answered. Patient agrees to proceed with procedure.
[2023-01-25] MEDS: ceFAZolin 2 GM/D5W 50 ML 2 GM/50 ML BAG IVPB (07:28)
[2023-01-25] MEDS: BUPIVACAINE/EPINEPHRINE 0.5% 50 ML VIAL 30 ML INFILTRATE (07:39)
[2023-01-25] MEDS: HEPARIN SODIUM 5,000 UNITS/ML VIAL 5000 UNITS IRRIGATION (07:39)
[2023-01-25] MEDS: HEPARIN SODIUM, PORCINE 10,000 UNITS/10 ML VIAL 3000 UNITS IV PUSH (07:43)
[2023-01-25 07:44] VITALS: BP 123/90; PULSE 56; RESP 16; TEMP 36.5; O2SAT 100
[2023-01-25 08:08] VITALS: BP 82/51; PULSE 78; RESP 12; O2SAT 100
--- NOTE | 2023-01-25 08:16 | W.PM.PROC2 ---
Procedure Note - Detailed Date of Procedure 01/25/23 Pre-op Diagnosis right lung cancer Post-op Diagnosis Same Procedure Performed placement of left subclavian venous access device under fluoroscopic guidance Surgeon Michelle Whitehead MD Anesthesia MAC and Local Indications 87-year-old male presenting with right sided lung cancer needing access for chemotherapy Findings first stick L SCV Description of Procedure Patient was brought into the operating room and placed in the supine position. After adequate induction of mac anesthesia, the patient was prepped and draped in normal sterile fashion. Time-out was then done to verify the patient's identity, as well as the procedure being performed. I began by making a small incision in the left chest, I then gained access into the left subclavian vein with an 18 gauge needle. I then placed the guidewire into the vein and confirmed placement via fluoroscopic guidance. I then locally anesthetized the area in the left chest. I then enlarged the incision around the guidewire including making a subcutaneous pocket inferiorly to allow placement of the port itself. I then placed a dilating sheath over the guidewire into the left subclavian vein via sterile Seldinger technique. This was once again done and confirmed via fluoroscopic guidance. I then removed the dilator and the guidewire, now just leaving the sheath in the vein. I then fed the previously flushed catheter into the left subclavian vein under fluoroscopic guidance. At approximately 23 cm, the catheter was noted to be near the atrial caval junction. I then peeled away the sheath, now just leaving the catheter in the vein. I then was able to easily draw and flush from the catheter. The catheter was cut to fit and attached to the port itself. The port was placed into the previously made subcutaneous pocket and sutured in with 0 Ethibond suture. Final fluoroscopic view showed the termination of the catheter at the atrial caval junction with a nice smooth curvature back to the port itself. I was able to gain access to the port with a Tomlin needle and was able to easily draw and flush from the port. I then flushed 4 cc of a final heparin flush into the port. The incision was closed with 3 0 Vicryl suture in the subcutaneous tissue and the skin was closed with 4 O Monocryl subcuticular suture. Dermabond was then placed on wound. The patient tolerated the procedure well and will be sent to the recovery room in stable condition. Implants L SCV VAD Estimated Blood Loss 5 Drains No Packing No Pathology None sent Complications No immediate complications Condition Stable Disposition PACU [facility] Billing Surgery - Charge Forward: Surgery Billing
[2023-01-25 08:30] VITALS: BP 133/88; PULSE 68; RESP 20
[2023-01-25 09:00] VITALS: BP 136/55; PULSE 63; RESP 20
[2023-01-25 09:20] VITALS: BP 130/60; PULSE 60; RESP 20
== END 2023-01-25 09:25 | disposition home or self-care (01) ==
PROVIDERS: PCP Family Medicine; Visit Provider Surgery
PROC: (CPT 36561; principal; 2023-01-25 07:30)
DX: C34.91 Malignant neoplasm of unspecified part of right bronchus or lung (principal); J44.9 Chronic obstructive pulmonary disease, unspecified; G47.33 Obstructive sleep apnea (adult) (pediatric); M06.9 Rheumatoid arthritis, unspecified; Z87.891 Personal history of nicotine dependence; Z79.51 Long term (current) use of inhaled steroids
CPT/HCPCS: 36561; 77001; C1788; J0690; J1100; J1644; J1885; J2405; J2704; J3010; J7120

== ENCOUNTER 2023-04-06 10:15 | Outpatient (CLI) | payer MEDICARE, SELFPAY ==
--- NOTE | ~2023-04-06 | US_ITS ---
EXAMINATION: US venous doppler [facility] DATE: 04/06/2023 11:09 INDICATION: Lower limb swelling. TECHNIQUE: Grayscale ultrasound images without and with compression and Doppler ultrasound images of the bilateral lower extremity veins were obtained. COMPARISON: None. FINDINGS: The visualized portions of right common femoral vein, profunda (deep) femoral vein, popliteal vein, p eroneal veins, posterior tibial veins, and greater saphenous vein outflow are patent. There is thromb us in right femoral vein. The visualized portions of left common femoral vein, profunda femoral vein, femoral vein, popliteal v ein, peroneal veins, posterior tibial veins, and greater saphenous vein outflow are patent. IMPRESSION: 1. Deep vein thrombosis involving the right femoral vein. Reviewed, dictated and finalized at location A. TECHNICIAN
== END 2023-04-06 10:16 | disposition home or self-care (01) ==
PROVIDERS: PCP Family Medicine; Visit Provider Student in an Organized Health Care Education/Training Program
DX: M79.89 Other specified soft tissue disorders (principal); I82.411 Acute embolism and thrombosis of right femoral vein
CPT/HCPCS: 93970; 96367; 96375; 96413; J1100; J2405; J7040; J9181

== ENCOUNTER 2023-04-20 10:13 | Outpatient (CLI) | payer MEDICARE, SELFPAY ==
--- NOTE | ~2023-04-20 | PE_ITS ---
EXAMINATION: PET skull to mid thigh DATE: 04/20/2023 13:20 INDICATION: Small cell lung cancer TECHNIQUE: Blood glucose level was 88 mg/dL. 10.061 mCi of 18-fluorodeoxyglucose (18-FDG) was adminis tered i.v. Low dose computed tomography (CT) images were acquired from the base of the brain to the p roximal thighs for attenuation correction and anatomic localization. Positron emission tomography (PE T) images were acquired in the same distribution beginning 61 minutes after injection. Images includi ng fused PET/CT images were reconstructed in axial, coronal, and sagittal planes. Automated exposure control technique was employed. The dose-length product was 1041.17mGy-cm. COMPARISON: 12/22/2022 FINDINGS: Head/neck: There is symmetric increased activity in the oral cavity, palatine tonsils, laryngeal muscles and ocu lar muscles without CT correlate, likely physiologic. More asymmetric increased uptake extending caud ally along the right longus capitis muscle without radiologic correlate also likely physiologic. No p athologically enlarged cervical lymphadenopathy or suspicious foci of increased FDG uptake in the vis ualized head or neck. Chest: Left subclavian central venous port catheter which extends through the cephalad superior vena cava wi th distal tip projecting into the distal azygos vein. Moderate emphysema. Decrease in size of a previ ously 3.3 x 2.3 cm FDG avid pleural-based mass at the posterior right lower lobe which currently sonya ures 2.5 x 1.4 cm. There is also been a decrease in the degree of FDG uptake with a maximal SUV of 13 .4 decreased to 6.1 consistent with response to treatment of biopsy-proven small cell lung cancer. Th ere are some persistent pleural thickening with some reticular opacities at the posterior right lung base without additional increased FDG uptake. Unchanged 10 mm pleural-based nodule in the right hemid iaphragm which remains without abnormal FDG uptake. Calcified left lower lobe nodule along with calci fied left hilar lymph nodes consistent with old granulomatous disease. Heart size is normal. Atherosc lerotic coronary artery calcification. No pericardial effusion. Thoracic aorta is normal in caliber. No residual abnormal FDG uptake associated with the previously FDG avid right hilar lymph nodes also consistent with response to treatment of suspected metastatic disease. No pathologically enlarged, en larging or abnormally FDG avid thoracic lymphadenopathy. Bilateral gynecomastia. Small sliding-type h iatal hernia. Abdomen/pelvis/proximal thighs: Physiologic renal accumulation and excretion of FDG activity in the kidneys, bladder and along portio ns of ureters. There are photopenic defects associated with a couple low-attenuation left renal cysts the larger measuring 2.0 cm. Normal degree and heterogenous pattern of increased uptake throughout t he liver without radiologic correlate or dominant FDG avid lesion. There are few calcified gallstones in the normal-appearing gallbladder with additional unchanged 8 mm gallstone in the common bile duct . The pancreas, spleen and bilateral adrenal glands are normal. Mild uptake scattered throughout the bowels without radiologic correlate, also likely physiologic. Normal appendix. No other abnormal foci of increased soft tissue FDG uptake or pathologically enlarged lymphadenopathy in the abdomen, pelvi s or proximal thighs. Musculoskeletal: Chronic L1 compression fracture. Bone graft harvest site at the left posterior iliac spine. There is mild FDG uptake associated with non or minimally displaced fractures of the anterior right eighth and anterior left 9th, 6th and 5th ribs. There is likely degenerative mild joint centered uptake at the left sternoclavicular joint and a few right-sided cervical facet joints. No other suspicious lytic, b lastic or FDG avid bone lesions. IMPRESSION: 1. Decrease in size and degree of FDG uptake associated with a now
[2023-04-20 10:39] LABS: Glucose Point of Care 88 mg/dl (65-105)
== END 2023-04-20 10:14 | disposition home or self-care (01) ==
PROVIDERS: PCP Family Medicine; Visit Provider Internal Medicine Hematology & Oncology
DX: C34.31 Malignant neoplasm of lower lobe, right bronchus or lung (principal); R59.0 Localized enlarged lymph nodes; S22.41XA Multiple fractures of ribs, right side, initial encounter for closed fracture; X58.XXXA Exposure to other specified factors, initial encounter
CPT/HCPCS: 78815; A9552

== ENCOUNTER 2023-05-11 08:47 | Outpatient (CLI) | payer MEDICARE, SELFPAY ==
--- NOTE | ~2023-05-11 | MR_ITS ---
EXAMINATION: MR brain/brain stem wo/w con DATE: 05/11/2023 09:47 INDICATION: Lung cancer restaging. TECHNIQUE: Magnetic resonance imaging (MRI) of the brain and brainstem was performed without and with 15 mL MultiHance intravenous contrast. COMPARISON: Brain MRI 12/22/2022 FINDINGS: There are scattered areas of nonspecific increased T2-weighted signal intensity in the cere bral white matter. There is a small old infarct in right cerebellum. There is no intracranial hemorrh age, acute infarction, or abnormal intracranial mass lesion. The ventricles are normal in size. There is mucosal thickening in the paranasal sinuses. There are likely changes of ocular lens replacement surgeries. There is a small left mastoid effusion. IMPRESSION: 1. No evidence of metastatic disease. 2. Small old infarct in right cerebellum. 3. Stable mild nonspecific cerebral white matter disease, which likely represents chronic small vesse l ischemic disease. Reviewed, dictated and finalized at location A. ASSOCIATE IMPRESSION: 1. No evidence of metastatic disease. 2. Small old infarct in right cerebellum. 3. Stable mild nonspecific cerebral white matter disease, which likely represen ts chronic small vessel ischemic disease.
== END 2023-05-11 08:48 | disposition home or self-care (01) ==
PROVIDERS: PCP Family Medicine; Visit Provider Radiology Radiation Oncology
DX: C34.90 Malignant neoplasm of unspecified part of unspecified bronchus or lung (principal); R90.82 White matter disease, unspecified
CPT/HCPCS: 70553; A9577

== ENCOUNTER 2023-05-24 13:46 | Emergency (ER) | payer MEDICARE, SELFPAY ==
--- NOTE | ~2023-05-24 | CT_ITS ---
EXAMINATION: CT brain wo con DATE: 05/24/2023 14:14 INDICATION: Head injury TECHNIQUE: Computed tomography (CT) of the head was performed without intravenous contrast. Sagittal and coronal reconstructions were performed. The mA was adjusted according to patient size. Iterative reconstruction technique was employed. The dose-length product was 681.00 mGy-cm. COMPARISON: Brain MR dated 05/11/2023 FINDINGS: Scalp laceration near the vertex. No fracture. No acute intracranial hemorrhage, acute infarction or abnormal extra axial fluid collection. There is mild scattered white matter hypoattenuation consisten t with chronic small vessel ischemic disease. Symmetric prominence of the sulci and subarachnoid spac es overlying the convexities consistent with mild to moderate age-appropriate diffuse cerebral volume loss. Ventricles are normal and symmetric. No mass/mass effect. There is mucosal thickening the par anasal sinuses. The orbits, paranasal sinuses and mastoid air cells are normal. Intracranial calcifie d cerebral atherosclerosis is noted. IMPRESSION: 1. Scalp laceration. No fracture or acute intracranial process. 2. Age-related changes including mild to moderate diffuse volume loss and mild scattered white matter hypoattenuation consistent with chronic small vessel ischemic disease. Reviewed, dictated and finalized at location A. REFINER OPERATOR IMPRESSION: 1. Scalp laceration. No fracture or acute intracranial process. 2. Age-related changes including mild to moderate diffuse volume loss and mild scattered white matter hypoattenuation consistent with chronic small vessel isc hemic disease.
[2023-05-24 13:50] VITALS: BP 131/79; PULSE 90; RESP 18; TEMP 36.8; O2SAT 99
--- NOTE | 2023-05-24 13:57 | ED.WOUNDLAC ---
HPI - Wound/Laceration General Chief Complaint: Wound/Laceration Stated Complaint: LACERATION Time Seen by Provider: 05/24/23 13:52 Source: patient Mode of arrival: ambulatory Limitations: no limitations History of Present Illness HPI narrative: 87-year-old male ex-smoker with a history of DVT,COPD, JANIS, rheumatoid arthritis, pulmonary nodules was diagnosed with small-cell lung cancer for which he completed chemo and RT. he was on Eliquis for his DVT. He dropped the heavy beam on his head and sustained a 3 cm laceration on the vertex of his skull. No LOC. No other injuries noted. The patient is up-to-date on his tetanus. Onset (ago): minute(s) ( 1 hour ago) Location: scalp Place: home Patient tetanus UTD: Yes Context: accidental Associated symptoms: none Related Data Home Medications Medication Instructions Recorded Confirmed albuterol sulfate 90 mcg/actuation 2 inhalation inhalation Q6H PRN 12/11/19 05/24/23 breath activated powder inhaler Shortness Of Breath Or Wheezing acetaminophen 650 mg 650 mg PO BID PRN Pain 11/29/22 05/24/23 tablet,extended release pravastatin 10 mg tablet 5 mg PO DAILY 11/29/22 05/24/23 diclofenac sodium 1 % topical gel 2 g topical QID 03/14/23 05/24/23 apixaban 5 mg tablet 5 mg PO BID 05/24/23 05/24/23 Allergies Allergy/AdvReac Type Severity Reaction Status Date / Time No Known Allergies Allergy Verified 05/24/23 13:54 Review of Systems Review of Systems: All systems reviewed & are unremarkable except as noted in HPI and below Constitutional: Constitutional: Reports as per HPI and Reports no additional constitutional complaints Eyes: Eyes: Reports as per HPI and Reports no additional eye complaints ENT: Reports system reviewed and no additional complaints, except as documented and Reports as per HPI Cardiovascular: Cardiovascular: Reports as per HPI and Reports no additional cardiovascular complaints Respiratory: Respiratory: Reports as per HPI and Reports no additional respiratory complaints Gastrointestinal: Gastrointestinal: Reports as per HPI and Reports no additional gastrointestinal complaints Genitourinary: Genitourinary: Reports no additional male genitourinary complaints and Reports as per HPI Musculoskeletal: Musculoskeletal: Reports no additional musculoskeletal complaints and Reports as per HPI Integumentary/Breasts: Skin/Breast: Reports system reviewed and no additional complaints, except as docu and Reports as per HPI Comments: 3 cm scalp Neurologic: Reports system reviewed and no additional complaints, except as documented and Reports as per HPI Psychiatric: Psychiatric: Reports no additional psychiatric complaints and Reports as per HPI Endocrine: Endocrine: Reports no additional endocrine complaints and Reports as per HPI Hematologic/Lymphatic: Hematologic/Lymphatic: Reports no additional hematologic/lymphatic complaints and Reports as per HPI Allergic/Immunologic: Allergic/Immunologic: Reports no additional allergic/immunologic complaints and Reports as per HPI [facility] Past Medical History Medical History (Updated 05/24/23 @ 14:08 by Santos Nichols MD) COPD (chronic obstructive pulmonary disease) DVT (deep venous thrombosis) Encounter for immunization History of tobacco abuse JANIS (obstructive sleep apnea) Osteopenia Rheumatoid arthritis SCC (squamous cell carcinoma), scalp/neck Weakness of right hip Surgical History Surgical History History of ear surgery Family History Family History Sibling Family history of arthritis Acute myocardial infarction Family history of lung cancer Father Family history of malignant neoplasm Family history of pancreatic cancer Mother Family history of malignant neoplasm of cervix Acute myocardial infarction Social History Social History (Reviewed 05/24/23 @ 14:03 by Santos
== END 2023-05-24 14:30 | disposition home or self-care (01) ==
LOC: CHSED 14:12
PROVIDERS: Emergency Provider Internal Medicine Critical Care Medicine; PCP Family Medicine
DX: S01.01XA Laceration without foreign body of scalp, initial encounter (principal); J44.9 Chronic obstructive pulmonary disease, unspecified; C34.90 Malignant neoplasm of unspecified part of unspecified bronchus or lung; Z86.718 Personal history of other venous thrombosis and embolism; Z79.01 Long term (current) use of anticoagulants; Z79.899 Other long term (current) drug therapy; Z87.891 Personal history of nicotine dependence; W45.8XXA Other foreign body or object entering through skin, initial encounter
CPT/HCPCS: 12002; 70450; 99284

== ENCOUNTER 2023-07-17 12:23 | Outpatient (CLI) | payer MEDICARE, SELFPAY ==
--- NOTE | ~2023-07-17 | XR_ITS ---
EXAM: XR knee RT min 4V DATE: 07/17/2023 12:48 HISTORY: M25.561 - Pain in right knee, CHRONIC . COMPARISON: 12/12/2019, report only. FINDINGS: Decreased mineralization. No fracture or dislocation. No lytic or blastic lesion. Severe m edial joint space narrowing. Mild tricompartmental osteophytosis. Chondrocalcinosis. Quadriceps enthe sopathy. Small volume joint fluid. No erosion or periosteal change. Atherosclerotic vascular calcific ation. IMPRESSION: Tricompartmental right knee arthritis with chondrocalcinosis, severe in the medial compar tment. Reviewed, dictated and finalized at location K. IMPRESSION: Tricompartmental right knee arthritis with chondrocalcinosis, sever e in the medial compartment.
== END 2023-07-17 12:24 | disposition home or self-care (01) ==
PROVIDERS: PCP Family Medicine; Visit Provider Family Medicine
DX: M17.11 Unilateral primary osteoarthritis, right knee (principal)
CPT/HCPCS: 73564

== ENCOUNTER 2023-07-22 09:14 | Emergency (ER) | payer MEDICARE, SELFPAY ==
[2023-07-22 09:22] VITALS: BP 161/90; PULSE 87; RESP 18; TEMP 36.6; O2SAT 97
--- NOTE | 2023-07-22 09:33 | ED.WOUNDLAC ---
HPI - Wound/Laceration General Chief Complaint: Wound/Laceration Stated Complaint: L elbow/hand skin tear/fall Time Seen by Provider: 07/22/23 09:29 Source: patient Mode of arrival: ambulatory Limitations: no limitations History of Present Illness HPI narrative: patient with a fall earlier today with skin tears to his left forearm and left with no other injuries with no head injury there is no lacerations has good range of motion in elbow wrist and hand no numbness tingling, patient is up-to-date his tetanus currently there is no bleeding although he is on Eliquis for a blood clot in his lower extremity. Onset (ago): hour(s) Place: home Patient tetanus UTD: Yes Context: accidental Associated symptoms: none Related Data Home Medications Medication Instructions Recorded Confirmed albuterol sulfate 90 mcg/actuation 2 inhalation inhalation Q6H PRN 12/11/19 07/22/23 breath activated powder inhaler Shortness Of Breath Or Wheezing acetaminophen 650 mg 650 mg PO BID PRN Pain 11/29/22 07/22/23 tablet,extended release pravastatin 10 mg tablet 5 mg PO DAILY 11/29/22 07/22/23 diclofenac sodium 1 % topical gel 2 g topical QID 03/14/23 07/22/23 apixaban 5 mg tablet 5 mg PO BID 05/24/23 07/22/23 Allergies Allergy/AdvReac Type Severity Reaction Status Date / Time No Known Allergies Allergy Verified 07/22/23 09:21 Review of Systems Review of Systems: All systems reviewed & are unremarkable except as noted in HPI and below PMFSH Past Medical History Medical History COPD (chronic obstructive pulmonary disease) DVT (deep venous thrombosis) Encounter for immunization History of tobacco abuse JANIS (obstructive sleep apnea) Osteopenia Rheumatoid arthritis SCC (squamous cell carcinoma), scalp/neck Weakness of right hip Surgical History Surgical History History of ear surgery Family History Family History Sibling Family history of arthritis Acute myocardial infarction Family history of lung cancer Father Family history of malignant neoplasm Family history of pancreatic cancer Mother Family history of malignant neoplasm of cervix Acute myocardial infarction Social History Social History Smoking packs per day: 3 Smoking cigarettes per day: 60.0 Years smoked: 25 Smoking pack-years: 75.00 Smoking status: Former smoker Tobacco type: cigarettes Second hand tobacco smoke exposure: No Smoking end date: 04/10/88 Alcohol intake: never Substance use: never Substance use type: does not use Lack of Transportation: No Lack of Food: Never True Current Housing: I Have Housing Concerned About Future Housing: No Difficulty Paying Gas/Electric Bills: No Difficulty Paying for Meds: No Currently Unemployed: No Education: High School Diploma/GED Difficulty w/ Childcare or Family Care: No Living arrangements: with family Occupation/Education: retired Gender identity (if verbalized by the patient): Male Sexual Orientation (if Verbalized by the Patient): Straight or Heterosexual Spiritual care concerns: No Agree to blood products: Yes Exam Const: General: healthy appearing, no acute distress and alert Nutritional Appearance: well nourished Orientation/consciousness: patient oriented x3 HENMT: Head: normal to inspection Neck: Neck: normal visual inspection, no lymphadenopathy and no meningeal signs Chest: Chest palpation & inspection: normal inspection of the chest Resp: Effort & Inspection: normal respiratory effort Auscultation: clear to auscultation bilaterally Cardio: Rate: regular rate Rhythm: regular rhythm GI: GI Palp: Yes Soft to palpation Auscultation: normal bowel sounds Back/Spine/Pelvis: Back: no CVA tenderness Skin: Wounds: woun
[2023-07-22 09:44] VITALS: BP 161/90; PULSE 87; RESP 18; TEMP 36.6; O2SAT 97
== END 2023-07-22 09:44 | disposition home or self-care (01) ==
PROVIDERS: Emergency Provider Emergency Medicine; PCP Family Medicine
DX: L98.8 Other specified disorders of the skin and subcutaneous tissue (principal); W19.XXXA Unspecified fall, initial encounter; Z86.718 Personal history of other venous thrombosis and embolism; Z79.01 Long term (current) use of anticoagulants; G47.33 Obstructive sleep apnea (adult) (pediatric); M06.9 Rheumatoid arthritis, unspecified; Z87.891 Personal history of nicotine dependence
CPT/HCPCS: 99282

== ENCOUNTER 2023-07-25 07:26 | Outpatient (CLI) | payer MEDICARE, SELFPAY ==
--- NOTE | ~2023-07-25 | US_ITS ---
EXAMINATION:US venous doppler LE RT INDICATION:Acute DVT right leg TECHNIQUE: Multiple grayscale, color flow and Doppler images of the right lower extremity deep venous systems were obtained and reviewed. COMPARISON:Ultrasound dated 04/06/2023 FINDINGS: The common femoral, superficial femoral and popliteal veins demonstrate normal respiratory variation, augmentation and compressibility. Color flow is also seen within the posterior tibial, pe roneal, greater saphenous and profunda veins. IMPRESSION: 1: No lower extremity deep venous thrombosis. Reviewed, dictated and finalized at location B.
--- NOTE | ~2023-07-25 | CT_ITS ---
Clinical Indication: Small cell lung cancer CT Scan of the Chest with Contrast: Technique: Contiguous sections were acquired throughout the chest after intravenous administration of 75 cc of Omnipaque 350. Dose reduction technique was used on this scan by utilizing automated exposu re control and iterative reconstruction technique. The dose-length product (DLP) was 304.59 mGy-cm. COMPARISON: PET/CT dated 04/20/2023 Findings: There is no evidence of any significant mediastinal, hilar or axillary lymphadenopathy. There is no f illing defect in the pulmonary arterial tree to suggest pulmonary embolus. There is no evidence of ao rtic dissection or aneurysm. No pericardial effusion. There is moderate emphysema with mild peripheral chronic interstitial change in the lungs. No suspici ous nodule or consolidation in the left lung. There is small irregular right basilar pleural effusion with patchy consolidation throughout the right lower lobe, and to a lesser extent the right middle l obe. Images through the upper abdomen reveal no abnormalities. Impression: Patchy consolidation throughout the right lung base, especially right lower lobe and right middle lob e, new/significant worsened from prior exam. Findings could reflect pneumonia or postradiation change . Correlate with relevant treatment history. Small right pleural effusion. Underlying moderate to advanced emphysema and mild peripheral chronic interstitial disease in the pretty gs. Reviewed, dictated and finalized at location . Impression: Patchy consolidation throughout the right lung base, especially right lower lob e and right middle lobe, new/significant worsened from prior exam. Findings cou ld reflect pneumonia or postradiation change. Correlate with relevant treatment history. Small right pleural effusion. Underlying moderate to advanced emphysema and mild peripheral chronic interstit ial disease in the lungs.
[2023-07-25 08:09] LABS: Estimated Glomerular Filt Rate 57
== END 2023-07-25 07:27 | disposition home or self-care (01) ==
PROVIDERS: PCP Family Medicine; Visit Provider Internal Medicine Hematology & Oncology
DX: C34.90 Malignant neoplasm of unspecified part of unspecified bronchus or lung (principal); I82.4Y1 Acute embolism and thrombosis of unspecified deep veins of right proximal lower extremity; J90 Pleural effusion, not elsewhere classified; R91.8 Other nonspecific abnormal finding of lung field
CPT/HCPCS: 36415; 71260; 80053; 83735; 85025; 93971; Q9967

== ENCOUNTER 2023-08-23 10:24 | Outpatient (CLI) | payer MEDICARE, SELFPAY ==
--- NOTE | ~2023-08-23 | MR_ITS ---
EXAMINATION: MR brain/brain stem wo/w con DATE: 08/23/2023 11:16 INDICATION: Surveillance for small cell lung cancer TECHNIQUE: Magnetic resonance imaging (MRI) of the brain and brainstem was performed with 100 mL Omni paque-350 intravenous contrast. Sequences included sagittal and axial T1-weighted SE, axial diffusion -weighted FS SE, axial T2*-weighted GRE, axial T2-weighted FLAIR, and axial T2-weighted FSE. Postcont rast axial and coronal T1-weighted SE was obtained. Apparent diffusion coefficient (ADC) maps were cr eated. COMPARISON: None. FINDINGS: There are no areas of restricted diffusion to suggest acute infarction. Small old lacunar infarct at the right cerebral hemisphere. No intracranial hemorrhage or abnormal intracranial mass lesion. There are scattered areas of nonspecific increased T2-weighted signal intensity in the cerebral white ro er, predominantly involving the deep and periventricular white matter which is within normal limits f or age and likely sequela of chronic small vessel ischemic disease. Increased T2 signals fissure with a new 3 mm enhancing nodule at the left precentral gyrus suspicious for metastatic disease. No other abnormally enhancing brain lesions identified.. There are no intraparenchymal signal abnormalities s een on the other pulse sequences. The ventricles are symmetric and normal in size. There are no abnor mal extra-axial fluid collections. Flow voids are seen in the cerebral arteries on the T2-weighted se quences consistent with their expected patency. Changes of bilateral intraocular lens replacement. Th ere is magnetic field artifact associated with a small metallic foreign body in the superficial subcu taneous tissues overlying the lateral rim of the left orbit. Mucous retention cyst in the right front al sinus. Visualized orbits and soft tissues are unremarkable. IMPRESSION: 1. New 3 mm enhancing lesion at the left precentral gyrus suspicious for metastatic disease. 2. Unchanged small old lacunar infarct at the right cerebellar hemisphere. 3. Stable mild scattered nonspecific cerebral white matter hypoattenuation consistent with chronic sm all vessel ischemic disease. Reviewed, dictated and finalized at location A. IMPRESSION: 1. New 3 mm enhancing lesion at the left precentral gyrus suspicious for metast atic disease. 2. Unchanged small old lacunar infarct at the right cerebellar hemisphere. 3. Stable mild scattered nonspecific cerebral white matter hypoattenuation cons istent with chronic small vessel ischemic disease.
== END 2023-08-23 10:25 | disposition home or self-care (01) ==
LOC: ANHIMG 10:24
PROVIDERS: PCP Family Medicine; Visit Provider Radiology Radiation Oncology
DX: C34.90 Malignant neoplasm of unspecified part of unspecified bronchus or lung (principal); R93.0 Abnormal findings on diagnostic imaging of skull and head, not elsewhere classified
CPT/HCPCS: 70553; A9577

== ENCOUNTER 2023-09-12 10:24 | Outpatient (CLI) | payer MEDICARE, SELFPAY ==
--- NOTE | ~2023-09-12 | PE_ITS ---
EXAMINATION: PET skull to mid thigh DATE: 09/12/2023 12:39 INDICATION: Small cell lung cancer. TECHNIQUE: 10.054 mCi of 18-fluorodeoxyglucose (18-FDG) was administered i.v. Low dose computed tomog isa (CT) images were acquired from the base of the brain to the proximal thighs for attenuation cor rection and anatomic localization. Automated exposure control was employed. Dose-length product (DLP) was 1062 mGy-cm. Positron emission tomography (PET) images were acquired in the same distribution. COMPARISON: PET/CT 04/20/2023 FINDINGS: Head/neck: There are no pathologically enlarged lymph nodes. Chest: There is moderate emphysema. A calcified left lung nodule and calcified left hilar lymph nodes are consistent with old granulomatous disease. There is a moderate-sized loculated right pleural eff usion. There are airspace opacities in right lung with a lower lobe predominance with areas of increa sed activity. There are normal-sized right hilar and mediastinal lymph nodes with activity similar to blood pool activity. The heart size is normal. There are coronary artery calcifications. No pericard ial effusion. There is a left subclavian port with tip in superior vena cava. Abdomen/pelvis/proximal thighs: The liver is normal. The gallbladder is distended and contains gallst ones. The common duct is dilated to 14 mm. There is a 9 mm stone in the common duct. Calcifications i n the spleen are consistent with old granulomatous disease. The pancreas and adrenal glands are suad l. There are cysts in the kidneys measuring up to 2.2 cm on the right. There is calcified atheroscler osis of the aorta and many of the other arteries. There is diverticulosis of the colon without eviden ce of diverticulitis. The prostate is mildly enlarged. There is a small sliding hiatal hernia. There are no pathologically enlarged lymph nodes. There is no free intraperitoneal fluid. There are likely surgical changes of left ilium with activity similar to blood pool activity. IMPRESSION: 1. New moderate-sized loculated right pleural effusion. 2. Worsened airspace opacities in right lung with a lower lobe predominance with increased activity, likely a combination of atelectasis and radiation pneumonitis versus pneumonia. 3. Choledocholithiasis and cholelithiasis with dilatation of the common duct and distention of the ga llbladder. Reviewed, dictated and finalized at location A. IMPRESSION: 1. New moderate-sized loculated right pleural effusion. 2. Worsened airspace opacities in right lung with a lower lobe predominance wit h increased activity, likely a combination of atelectasis and radiation pneumon itis versus pneumonia. 3. Choledocholithiasis and cholelithiasis with dilatation of the common duct an d distention of the gallbladder.
[2023-09-12 11:00] LABS: Glucose Point of Care 101 mg/dl (65-105)
== END 2023-09-12 10:25 | disposition home or self-care (01) ==
PROVIDERS: PCP Family Medicine; Visit Provider Internal Medicine Hematology & Oncology
DX: C79.31 Secondary malignant neoplasm of brain (principal); C34.90 Malignant neoplasm of unspecified part of unspecified bronchus or lung; J90 Pleural effusion, not elsewhere classified; K80.50 Calculus of bile duct without cholangitis or cholecystitis without obstruction; K80.20 Calculus of gallbladder without cholecystitis without obstruction
CPT/HCPCS: 78815; A9552

== ENCOUNTER 2023-09-21 08:37 | Outpatient (CLI) | payer MEDICARE, SELFPAY ==
--- NOTE | 2023-09-20 12:57 | PC.NURSE ---
Pre Radiology instructions Report to the outpatient paul coreas on date _09/21/23____ at time __8:30 AM for procedure Time: 1030____ YOU MAY BE MONITORED AT HOSPITAL FOR UP TO 4 HOURS AFTER YOUR PROCEDURE. A visitor will be allowed to accompany the patient into the hospital. You and your visitor will be asked to self-screen and do not enter if you have any COVID symptoms. A mask is OPTIONAL within the hospital. Patients are to have no food or drink 6 hours prior to procedure time Driving will be restricted after the procedure, you must have a person to drive you home. Labs will be drawn in preop area and once reviewed, you will be taken to radiology area for procedure. When the procedure is completed, you will be taken to outpatient where you will be monitored for several hours. You may have one visitor in this area. Other than holding anti-coagulants, patient may take other medication(s) as scheduled. Prior to your appointment date patients are instructed to hold anti-coagulants after discussing with ordering provider to stop. If unable to discontinue anti-coagulants please notify radiologist. ? No aspirin or warfarin (Coumadin) for 7 days prior to the procedure. ? No clopidogrel (Plavix), ticagrelor (Brilinta), prasugrel (Effient) or dabigatran (Pradaxa) for 5 days prior to the procedure. ? No rivaroxaban (Xarelto), apixaban (Eliquis), dipyridamole (Aggrenox or Persantine) or cilostazol (Pletal) for 2 days prior to the procedure. Medications to discontinue per physician: __NONE Please leave all valuables, including medications, at home the day of procedure. The hospital will not accept responsibility for valuables. Wear comfortable, loose fitting clothing.? Follow any additional instructions given to you from ordering provider. Telephone instructions given to __PT'S and asked if any additional questions and then verbalized understanding. Patient advised to call scheduling provider office or registration scheduling [phone] if any additional questions.
[2023-09-20 13:02] VITALS: BMI 25.1
[2023-09-21] VITALS (7 sets, daily range): BP systolic 109–143; BP diastolic 69–90; PULSE 83–91; RESP 16–22; TEMP 36.7; O2SAT 93–98; BMI 24.6
--- NOTE | ~2023-09-21 | US_ITS ---
EXAMINATION: US thoracentesis DATE: 09/21/2023 10:45 INDICATION: Right pleural effusion TECHNIQUE: The procedure and its risks and benefits were discussed with the patient. Potential risks discussed included bleeding, infection, and pneumothorax. The patient understood the risks and agreed to proceed. The skin was prepped and draped in sterile fashion. 1% lidocaine was used for local anes thesia. Under ultrasound guidance, a 5 Fr catheter with trochar was advanced into the right pleural e ffusion. Fluid was aspirated. The catheter was removed, and a dressing was applied. There were no imm ediate complications. FINDINGS: Ultrasound images demonstrate a small right pleural effusion and the catheter within the fluid. IMPRESSION: 1. Successful ultrasound-guided thoracentesis yielding 1000 mL of dark yodit-colored fluid. Reviewed, dictated and finalized at location A. IMPRESSION: 1. Successful ultrasound-guided thoracentesis yielding 1000 mL of dark yodit-c olored fluid.
--- NOTE | ~2023-09-21 | XR_ITS ---
EXAMINATION: [id number] DATE: 09/21/2023 10:35 INDICATION: Status post right thoracentesis TECHNIQUE: frontal view of the chest was obtained. COMPARISON: PET/CT dated 09/12/2023 FINDINGS: Left subclavian central venous port catheter with distal tip at the cephalad superior vena cava. Volu me loss in the right hemithorax with patchy and reticular airspace opacities in the mid and lower pretty g zones. Additional mild reticular opacities in the left lower lung zone. Minimal residual right pleu ral effusion. No pneumothorax or left-sided pleural effusion. Heart size is normal. IMPRESSION: 1. Minimal residual right pleural effusion with no pneumothorax post right thoracentesis. 2. Opacities in the right mid to lower and left lower lung zones with differential including atelecta sis, pneumonia, radiation pneumonitis or some combination thereof. Reviewed, dictated and finalized at location A. IMPRESSION: 1. Minimal residual right pleural effusion with no pneumothorax post right thor acentesis. 2. Opacities in the right mid to lower and left lower lung zones with different ial including atelectasis, pneumonia, radiation pneumonitis or some combination thereof.
[2023-09-21 09:25] LABS: Platelet Count Result 210 k/mm3 (150-375)
== END 2023-09-21 12:40 | disposition home or self-care (01) ==
PROVIDERS: PCP Family Medicine; Referring Provider Internal Medicine Hematology & Oncology; Visit Provider Radiology Diagnostic Radiology
DX: Z01.818 Encounter for other preprocedural examination (principal); J90 Pleural effusion, not elsewhere classified; R91.8 Other nonspecific abnormal finding of lung field
CPT/HCPCS: 32555; 36415; 85049; 85610; 88108; 88305

== ENCOUNTER 2023-10-23 07:41 | Outpatient (CLI) | payer MEDICARE, SELFPAY ==
--- NOTE | ~2023-10-23 | CT_ITS ---
CT diagnostic chest w con Ordering provider: Shawn Burnham MD History: 88 years Male with . Small cell lung cancer . Comparison: July 25, 2023 Technique: CT chest with IV contrast. Radiation reduction technique utilized. DLP is 265.28 mGy-cm. 75 mL of Omnipaque 350 was given IV. Findings: Left Port-A-Cath is seen with the tip overlying superior vena cava. VISUALIZED THORACIC INLET: Normal. MEDIASTINUM: Aorta/coronary arteries: Mild atheromatous disease. Heart/other: The heart is not enlarged. Lymph nodes: No mediastinal or hilar adenopathy. LUNGS: Fluid is seen in the right upper lobe extending down posteriorly. Loculated fluid is not exclu ded. Possibility of a mass in the right infrahilar area is not excluded with right basal atelectasis versus pneumonia. Underlying fibrotic and emphysematous changes of the lungs. A mass in the right low er lobe area with central cavitation is not excluded. Right pneumothorax with percentage of about 50% . VISUALIZED UPPER ABDOMEN: the visualized upper abdomen is normal. MUSCULOSKELETAL: Soft tissues: The superficial soft tissues are normal. Bones: Age appropriate degenerative changes of the spine. Old compression fracture of L1 is noted. IMPRESSION: Right apical pneumothorax. correlate with recent biopsy or other procedure. Right basal atelectasis versus pneumonia with right pleural effusion versus hemothorax. Mass in the right lower lobe area. Underlying emphysematous and fibrotic changes. A message above the result of the patient was left to Shawn Burnham MD at 8:38 AM on October 23, 2023 Reviewed, dictated and finalized at location A. IMPRESSION: Right apical pneumothorax. correlate with recent biopsy or other procedure. Right basal atelectasis versus pneumonia with right pleural effusion versus hem othorax. Mass in the right lower lobe area. Underlying emphysematous and fibrotic changes. A message above the result of the patient was left to Shawn Burnham MD at 8:3 8 AM on October 23, 2023
== END 2023-10-23 07:42 | disposition home or self-care (01) ==
PROVIDERS: PCP Family Medicine; Visit Provider Internal Medicine Hematology & Oncology
DX: C34.31 Malignant neoplasm of lower lobe, right bronchus or lung (principal); J93.83 Other pneumothorax; R91.8 Other nonspecific abnormal finding of lung field; J43.9 Emphysema, unspecified
CPT/HCPCS: 71260; Q9967

== ENCOUNTER 2023-11-29 11:49 | Outpatient (CLI) | payer MEDICARE, SELFPAY ==
--- NOTE | ~2023-11-29 | MR_ITS ---
EXAMINATION: MR brain/brain stem wo/w con DATE: 11/29/2023 13:04 INDICATION: Brain metastases post radiation treatment TECHNIQUE: Magnetic resonance imaging (MRI) of the brain and brainstem was performed without and with 16 mL Multihance intravenous contrast. Sequences included sagittal and axial T1-weighted SE, axial d iffusion-weighted FS SE, axial T2*-weighted GRE, axial T2-weighted FLAIR, and axial T2-weighted FSE. Postcontrast axial and coronal T1-weighted SE was obtained. Apparent diffusion coefficient (ADC) maps were created. COMPARISON: None. 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 There are no areas of restricted diffusion to suggest acute infarction. No intracranial hemorrhage or abnormal intracranial mass lesio n. A prior small enhancing lesion along the left precentral gyrus is no longer visualized consistent with response to treatment of metastatic disease. There are no areas of abnormal enhancement on the p ost contrast images. No significant change in scattered areas of nonspecific increased T2-weighted si gnal intensity in the cerebral white matter, predominantly involving the deep and periventricular whi te matter. There are no intraparenchymal signal abnormalities seen on the other pulse sequences. The ventricles are symmetric and normal in size. There are no abnormal extra-axial fluid collections. Toney w voids are seen in the cerebral arteries on the T2-weighted sequences consistent with their expected patency. Mild mucosal thickening in bilateral ethmoid sinuses. Mucous retention cyst right maxillary sinus. Changes of bilateral intraocular lens replacement. IMPRESSION: 1. No abnormally enhancing brain lesions with resolution of the prior small enhancing lesion at the l eft precentral gyrus consistent with response to treatment of metastatic disease. 2. 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 Reviewed, dictated and finalized at location A. IMPRESSION: 1. No abnormally enhancing brain lesions with resolution of the prior small enh ancing lesion at the left precentral gyrus consistent with response to treatmen t of metastatic disease. 2. 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
== END 2023-11-29 11:50 | disposition home or self-care (01) ==
PROVIDERS: PCP Family Medicine; Visit Provider Radiology Radiation Oncology
DX: C34.90 Malignant neoplasm of unspecified part of unspecified bronchus or lung (principal); R93.0 Abnormal findings on diagnostic imaging of skull and head, not elsewhere classified
CPT/HCPCS: 70553; A9577

== ENCOUNTER 2024-01-03 08:06 | Outpatient (CLI) | payer MEDICARE, SELFPAY ==
--- NOTE | ~2024-01-03 | CT_ITS ---
Clinical Indication: Small cell lung cancer CT Scan of the Chest, Abdomen, and Pelvis with Contrast: Technique: Contiguous sections were acquired throughout the chest, abdomen, and pelvis after intraven ous administration of 100 cc of Omnipaque 350. Dose reduction technique was used on this scan by milo ospina automated exposure control and iterative reconstruction technique. The dose-length product (DL P) was 505.06 mGy-cm. Comparison: 10/23/2023 Findings: There is no evidence of any significant mediastinal, hilar or axillary lymphadenopathy. The mediastin al soft tissues and vascular structures appear normal. No pericardial effusion. Moderate, partially loculated right pleural effusion is similar to prior exam. There is a small pneum othorax component as well, decreased from prior exam. Patchy right basilar consolidation and architec tural distortion with bronchiolectasis is overall similar to prior exam. There is interstitial thicke terrance in the right lung as well. There is right lung volume loss. There is moderate to advanced emphys pam of the left lung, with hyperinflation. The liver, spleen, pancreas, adrenals and kidneys are within normal limits. Calcified gallstones are present. There is an 8 mm stone in distal common bile duct (axial image 146). Common bile duct measur es up to 11 mm in diameter. There is atherosclerotic calcification of the aorta without kristi aneurys m. No lymphadenopathy. No bowel obstruction or bowel wall thickening. There is sigmoid diverticulosis. Questionable area of very focal annular wall thickening and luminal narrowing at the mid transverse colon (axial image 122 ), versus peristalsis. Urinary bladder is unremarkable. No pelvic mass evident. No ascites. Chronic L1 compression fracture present. Impression: Moderate right hydropneumothorax is overall similar in size to prior exam, although the pneumothorax component has decreased. Right-sided volume loss with extensive right lower lobe consolidation and bronchiolectasis, with tomi tional patchy architectural distortion and extensive interstitial change in the right lung is stable from prior exam, suggestive of posttreatment change. Moderate to advanced emphysema. Choledocholithiasis and cholelithiasis, as detailed above. No evidence for acute pancreatitis or defi nite acute cholecystitis, though the gallbladder is somewhat distended. Questionable area of concentric wall thickening of the transverse colon versus peristalsis. Consider colonoscopy or follow-up exam, as a focal carcinoma of the colon cannot be completely excluded. Reviewed, dictated and finalized at location M. Impression: Moderate right hydropneumothorax is overall similar in size to prior exam, alth ough the pneumothorax component has decreased. Right-sided volume loss with extensive right lower lobe consolidation and bronc hiolectasis, with additional patchy architectural distortion and extensive inte rstitial change in the right lung is stable from prior exam, suggestive of post treatment change. Moderate to advanced emphysema. Choledocholithiasis and cholelithiasis, as detailed above. No evidence for acut e pancreatitis or definite acute cholecystitis, though the gallbladder is somew hat distended. Questionable area of concentric wall thickening of the transverse colon versus peristalsis. Consider colonoscopy or follow-up exam, as a focal carcinoma of th e colon cannot be completely excluded.
== END 2024-01-03 08:07 | disposition home or self-care (01) ==
PROVIDERS: PCP Family Medicine; Visit Provider Internal Medicine Hematology & Oncology
DX: C34.90 Malignant neoplasm of unspecified part of unspecified bronchus or lung (principal); J43.9 Emphysema, unspecified; K80.20 Calculus of gallbladder without cholecystitis without obstruction; J94.8 Other specified pleural conditions
CPT/HCPCS: 71260; 74177; 87493; Q9967

== ENCOUNTER 2024-01-05 12:19 | Emergency (ER) | payer MEDICARE, SELFPAY ==
[2024-01-05 12:38] VITALS: BP 128/72; PULSE 107; RESP 20; TEMP 36.9; O2SAT 97
[2024-01-05 13:28] LABS: Basophils Percent Auto 0.7 % (0.2-1.2); Hematocrit 28.2 % (42.0-52.0); Hemoglobin 9.3 g/dL (14.0-18.0); Immature Granulocyte Absolute 0.01 K/mm3 (0.00-0.031); Immature Granulocyte Percent A 0.3 % (0-0.5); Lymphocytes Absolute Auto 0.63 K/mm3 (0.9-3.2); Mean Corpuscular Hemoglobin 29.8 pg (26-34); Mean Corpuscular Volume 90.4 fl (80-100); Mean Platelet Volume 9.3 fl (7.4-10.4); Monocytes Absolute Auto 0.6 K/mm3 (0.1-0.6); Monocytes Percent Auto 20.3 % (2.6-8.5); Neutrophils Absolute Auto 1.6 K/mm3 (1.3-6.7); Neutrophils Percent Auto 55.7 % (45.5-73.1); Platelet Count Result 200 k/mm3 (150-375); Red Blood Count 3.12 M/mm3 (4.6-6.20); Red Cell Distribution Width 16.9 % (11.5-14.5); White Blood Count 2.9 K/mm3 (4.5-10.0)
[2024-01-05 13:38] LABS: Alanine Aminotransferase 10 U/L (6-50); Albumin Level 3.5 g/dL (3.5-5.1); Alkaline Phosphatase 61 U/L (38-126); Anion Gap 11 mmol/L (4-12); Aspartate Amino Transferase 20 U/L (17-59); Bilirubin,Total 0.6 mg/dL (0.2-1.3); Blood Urea Nitrogen 20 mg/dL (9-20); Calcium 8.6 mg/dL (8.4-10.2); Carbon Dioxide 21 mmol/L (22-30); Chloride 100 mmol/L (98-107); Estimated CRCL calculation 53 ml/min; Estimated Glomerular Filt Rate > 60; Glucose 103 mg/dL (65-110); Lipase 16 U/L (23-300); Potassium 4.1 mmol/L (3.4-5.0); Sodium 132 mmol/L (137-145)
[2024-01-05 13:39] VITALS: BP 102/68; PULSE 99; RESP 18; O2SAT 98
[2024-01-05 14:02] LABS: Magnesium 1.8 mg/dL (1.6-2.3)
[2024-01-05 15:10] VITALS: BP 108/63
--- NOTE | 2024-01-05 15:20 | ED.NAVMDI ---
HPI - Nausea/Vomiting/Diarrhea General Chief complaint: Nausea/Vomiting/Diarrhea Stated complaint: N/V/D Time Seen by Provider: 01/05/24 13:13 Source: patient Mode of arrival: ambulatory Limitations: no limitations History of Present Illness HPI Narrative: This is an 88-year-old male, with history of right lobe of small cell lung cancer with most recent chemotherapy performed on 12/28/2023 with Irinocetan, presents to the emergency department complaining of loose stools for the past week. The patient states he typically has diarrhea after chemotherapy, though this episode lasted longer than usual. He tried previously prescribed medications without improvement. He denies associated abdominal pain, fevers, and vomiting, bleeding and has no other complaints at this time. Related Data Home Medications Medication Instructions Recorded Confirmed albuterol sulfate 90 mcg/actuation 2 inhalation inhalation Q6H PRN 12/11/19 12/28/23 breath activated powder inhaler Shortness Of Breath Or Wheezing acetaminophen 650 mg 650 mg PO BID PRN Pain 11/29/22 12/28/23 tablet,extended release pravastatin 10 mg tablet 5 mg PO DAILY 11/29/22 12/28/23 diclofenac sodium 1 % topical gel 2 g topical QID 03/14/23 12/28/23 cyanocobalamin (vitamin B-12) 1,000 mcg PO DAILY 10/09/23 12/28/23 1,000 mcg tablet (Vitamin B-12) etanercept 25 mg/0.5 mL (0.5 mL) 25 mg subcut 2XW 10/09/23 12/28/23 subcutaneous syringe (Enbrel) ferrous sulfate 325 mg (65 mg 325 mg PO DAILY 10/09/23 12/28/23 iron) tablet (iron) megestrol 400 mg/10 mL (40 mg/mL) 400 mg PO DAILY 11/15/23 12/28/23 oral suspension Allergies Allergy/AdvReac Type Severity Reaction Status Date / Time No Known Allergies Allergy Verified 12/28/23 11:14 Review of Systems Review of Systems: All systems reviewed & are unremarkable except as noted in HPI and below PMFSH Past Medical History Medical History COPD (chronic obstructive pulmonary disease) DVT (deep venous thrombosis) Encounter for immunization History of tobacco abuse JANIS (obstructive sleep apnea) Osteopenia Rheumatoid arthritis SCC (squamous cell carcinoma), scalp/neck Weakness of right hip Surgical History Surgical History History of ear surgery Family History Family History Sibling Family history of arthritis Acute myocardial infarction Family history of lung cancer Father Family history of malignant neoplasm Family history of pancreatic cancer Mother Family history of malignant neoplasm of cervix Acute myocardial infarction Social History Social History Smoking packs per day: 3 Smoking cigarettes per day: 60.0 Years smoked: 25 Smoking pack-years: 75.00 Smoking status: Former smoker Tobacco type: cigarettes Second hand tobacco smoke exposure: No Smoking end date: 04/10/88 Alcohol intake: never Substance use: never Substance use type: does not use Lack of Transportation: No Lack of Food: Never True Current Housing: I Have Housing Concerned About Future Housing: No Difficulty Paying Gas/Electric Bills: No Difficulty Paying for Meds: No Currently Unemployed: No Education: High School Diploma/GED Difficulty w/ Childcare or Family Care: No Living arrangements: with family Occupation/Education: retired Gender identity (if verbalized by the patient): Male Sexual Orientation (if Verbalized by the Patient): Straight or Heterosexual Spiritual care concerns: No Agree to blood products: Yes Exam Narrative: GENERAL: Well-developed, well-nourished, and in no acute distress. HEAD: Normocephalic, atraumatic. EYES: PERRLA and EOMI. ENT: Nares clear, no rhinorrhea or epistaxis. Mucous membranes moist. Oropharynx without tonsillar hyp
[2024-01-05] MEDS: SODIUM CHLORIDE 0.9% IV 1,000 ML 999 ML IV CONT (15:32)
[2024-01-05] MEDS: LOPERAMIDE HCL 2 MG CAPSULE 4 MG PO (15:32)
[2024-01-05 15:33] VITALS: BP 117/86; PULSE 96; RESP 18; O2SAT 100
== END 2024-01-05 16:30 | disposition home or self-care (01) ==
PROVIDERS: Emergency Provider Preventive Medicine Aerospace Medicine; PCP Family Medicine
DX: R19.7 Diarrhea, unspecified (principal); C34.91 Malignant neoplasm of unspecified part of right bronchus or lung; Z86.718 Personal history of other venous thrombosis and embolism; G47.33 Obstructive sleep apnea (adult) (pediatric); M06.9 Rheumatoid arthritis, unspecified; J44.9 Chronic obstructive pulmonary disease, unspecified; Z87.891 Personal history of nicotine dependence
CPT/HCPCS: 36415; 80053; 83690; 83735; 85025; 96360; 99283; A9270; J7030

== ENCOUNTER 2024-03-04 09:04 | Outpatient (CLI) | payer MEDICARE, SELFPAY ==
--- NOTE | ~2024-03-04 | MR_ITS ---
EXAMINATION: MR brain/brain stem wo/w con DATE: 03/04/2024 10:34 INDICATION: Brain metastases status post radiation. Small cell lung cancer. TECHNIQUE: Magnetic resonance imaging (MRI) of the brain and brainstem was performed without and with 15 mL MultiHance intravenous contrast. COMPARISON: Brain MRI 11/29/2023 FINDINGS: There are scattered areas of nonspecific increased T2-weighted signal intensity in the cere bral white matter, which is within normal limits for the patient's age. There is a small old infarct in right cerebellum. There is no intracranial hemorrhage, acute infarction, or abnormal intracranial mass lesion. The ventricles are normal in size. There are likely changes of ocular lens replacement s urgeries. There is mild mucosal thickening in the paranasal sinuses. The mastoid air cells are normal . IMPRESSION: 1. No evidence of metastatic disease. 2. Small old infarct in the cerebellum. Reviewed, dictated and finalized at location A. TY PROGRAM TECHNICIAN
== END 2024-03-04 09:05 | disposition home or self-care (01) ==
PROVIDERS: PCP Family Medicine; Visit Provider Radiology Radiation Oncology
DX: C34.90 Malignant neoplasm of unspecified part of unspecified bronchus or lung (principal); I25.2 Old myocardial infarction
CPT/HCPCS: 70553; A9577

== ENCOUNTER 2024-03-28 08:45 | Emergency (ER) | payer MEDICARE, SELFPAY ==
[2024-03-28 08:46] VITALS: BP 118/80; PULSE 86; RESP 14; TEMP 36.2; O2SAT 100
--- NOTE | 2024-03-28 08:55 | ED_ITS ---
HPI - Extremity Injury (Upper) General Chief Complaint: Extremity Injury, Upper Stated Complaint: right fourth digit injury Time Seen by Provider: 03/28/24 08:55 Source: patient and family Mode of arrival: ambulatory Limitations: no limitations History of Present Illness HPI narrative: this is a 89-year-old male that had an injury a few days ago caring a microwave and cause a skin tear that is currently healing but there is no drainage there is some redness warmth and tenderness to the right 4th distal finger with no fever chills no other injuries noted. MD complaint: injury to: right Onset (ago): day(s) Other Extremity Injury: Right: fingers (With finger injury with skin tear that is healed but there is some warmth and redness) Other injuries: none Place: home Severity: mild Related Data Home Medications ?Medication ?Instructions ?Recorded ?Confirmed ?Last Taken ?Type albuterol sulfate 90 mcg/actuation 2 inhalation inhalation Q6H PRN 12/11/19 02/29/24 Unknown History breath activated powder inhaler Shortness Of Breath Or Wheezing acetaminophen 650 mg 650 mg PO BID PRN Pain 11/29/22 02/29/24 Unknown History tablet,extended release pravastatin 10 mg tablet 5 mg PO DAILY 11/29/22 02/29/24 Unknown History diclofenac sodium 1 % topical gel 2 g topical QID 03/14/23 02/29/24 Unknown History cyanocobalamin (vitamin B-12) 1,000 mcg PO DAILY 10/09/23 02/29/24 Unknown His tory 1,000 mcg tablet (Vitamin B-12) ferrous sulfate 325 mg (65 mg 325 mg PO DAILY 10/09/23 02/29/24 Unknown History iron) tablet (iron) etanercept 25 mg (1 mL) 25 mg subcut WEEKLY 02/08/24 02/29/24 Unknown History subcutaneous powder for solution Allergies Allergy/AdvReac Type Severity Reaction Status Date / Time No Known Allergies Allergy Verified 03/28/24 08:48 Review of Systems Review of Systems: All systems reviewed & are unremarkable except as noted in HPI and below PMFSH Past Medical History Medical History DVT (deep venous thrombosis) Encounter for immunization Weakness of right hip History of tobacco abuse Osteopenia SCC (squamous cell carcinoma), scalp/neck Rheumatoid arthritis JANIS (obstructive sleep apnea) COPD (chronic obstructive pulmonary disease) Surgical History Surgical History History of ear surgery Family History Family History Sibling Family history of arthritis Acute myocardial infarction Family history of lung cancer Father Family history of malignant neoplasm Family history of pancreatic cancer Mother Family history of malignant neoplasm of cervix Acute myocardial infarction Social History Social History Smoking packs per day: 3 Smoking cigarettes per day: 60.0 Years smoked: 25 Smoking pack-years: 75.00 Smoking status: Former smoker Tobacco type: cigarettes Second hand tobacco smoke exposure: No Smoking end date: 04/10/88 Alcohol intake: never Substance use: never Substance use type: does not use Lack of Transportation: No Lack of Food: Never True Current Housing: I Have Housing Concerned About Future Housing: No Difficulty Paying Gas/Electric Bills: No Difficulty Paying for Meds: No Currently Unemployed: No Education: High School Diploma/GED Difficulty w/ Childcare or Family Care: No Living arrangements: with family Occupation/Education: retired Gender identity (if verbalized by the patient): Male Sexual Orientation (if Verbalized by the Patient): Straight or Heterosexual Spiritual care concerns: No Agree to blood products: Yes Exam Const: General: healthy appearing Nutritional Appearance: well nourished Limitations: no limitations Resp: Effort & Inspection: normal respiratory effort Auscultation: clear to auscultation bilaterally Cardio: Rate: regular rate Rhythm: regular rhythm Skin: Wounds: wounds noted Neuro: General: patient oriented x3 and moves all extremities Course Course Emergency Course: Patient here today with a red warm area to the distal right 4th finger is up-to-date with his tetanus and will prescribe antibiotic fills into his local pharmacy. Vital Signs Vital signs: Vital Signs Temperature 36.2 C L 03/28/24 08:46 Pulse Rate 86 03/28/24 08:46 Respiratory Rate 14 03/28/24 08:46 Blood Pressure 118/80 03/28/24 08:46 Pulse Oximetry 100 03/28/24 08:46 Oxygen Delivery Room Air 03/28/24 08:46 Temperature 36.2 C L 03/28/24 08:46 Pulse Rate 86 03/28/24 08:46 Respiratory Rate 14 03/28/24 08:46 Blood Pressure 118/80 03/28/24 08:46 Pulse Oximetry 100 03/28/24 08:46 Oxygen Delivery Room Air 03/28/24 08:46 Critical Care Time Critical Care Time Critical Care Time: No Discharge Plan Discharge Clinical Impression: Cellulitis Qualifiers: Site of cellulitis: extremity Site of cellulitis of extremity: finger Laterality: right Qualified Code(s): L03.011 - Cellulitis of right finger Patient Disposition: Home, Self-Care Condition: Stable Instructions: Antibiotic Form, Cellulitis (ED) Additional Instructions: advised family to take medication as prescribed and follow-up with primary symptoms persist or worsen. Patient Language: Czech Prescriptions: New amoxicillin-pot clavulanate [Augmentin] 500-125 mg tablet 1 tablet PO TID Qty: 30 0RF No Action diclofenac sodium 1 % Gel 2 g TOPICAL QID Rx Instructions: apply to single elbow, wrist or hand; for hand includes palm/fingers/back of hand cyanocobalamin (vitamin B-12) [Vitamin B-12] 1,000 mcg Tablet 1,000 mcg PO DAILY ferrous sulfate [iron] 325 mg (65 mg iron) Tablet 325 mg PO DAILY Enbrel 25 mg (1 mL) Recon Soln 25 mg SUBCUT WEEKLY albuterol sulfate 90 mcg/actuation aerosol powdr breath activated 2 inhalation INHALATION Q6H PRN (Reason: Shortness Of Breath Or Wheezing) Patient Comments: . Breztri Aerosphere 160-9-4.8 mcg/actuation HFA aerosol inhaler 2 inh inhalation BID Qty: 10.7 0RF pravastatin 10 mg Tablet 5 mg PO DAILY acetaminophen 650 mg Tablet Extended Release 650 mg PO BID PRN (Reason: Pain) loperamide 2 mg capsule 2 mg PO Q6H PRN (Reason: loose stool) Qty: 8 0RF Follow-up/Referrals: Lucila Gomez MD [Primary Care Provider] - Time of Disposition: 09:00
== END 2024-03-28 09:08 | disposition home or self-care (01) ==
LOC: CHSED 09:05
PROVIDERS: Emergency Provider Emergency Medicine; PCP Family Medicine
DX: L03.011 Cellulitis of right finger (principal); M06.9 Rheumatoid arthritis, unspecified; J44.9 Chronic obstructive pulmonary disease, unspecified; Z87.891 Personal history of nicotine dependence
CPT/HCPCS: 99283

== ENCOUNTER 2024-04-11 08:55 | Outpatient (CLI) | payer MEDICARE, SELFPAY ==
--- NOTE | ~2024-04-11 | CT_ITS ---
EXAMINATION: CT chest abdomen pelvis w con DATE: 04/11/2024 09:26 INDICATION: Lung cancer TECHNIQUE: Computed tomography (CT) of the chest, abdomen, and pelvis was performed with 100 mL Omnip aque-350 intravenous contrast. Automated exposure control and iterative reconstruction technique were employed. The dose-length product was 556.92 mGy-cm. COMPARISON: 01/03/2024 FINDINGS: CHEST CT: Moderate emphysema. Calcified left lower lobe nodule and calcified left hilar lymph nodes consistent with old granulomatous disease. There is consolidation with volume loss and associated bronchiectasis in the right lower lobe consistent with prior radiation treatment for reported lung cancer. Decrease in size and resolution of the gas component of the prior small hydropneumothorax. Heart size is norm al with unchanged rightward shift the heart and mediastinum resulting from the volume loss in the rig ht lung. Atherosclerotic coronary artery calcification is. No pericardial effusion. Thoracic aorta is normal in caliber with no dissection. No pathologically enlarged thoracic lymphadenopathy. Moderate thoracic spondylosis. ABDOMEN/PELVIS CT: Small sliding-type hiatal hernia. There are a few calcified gallstones in the dependent aspect of the normal-appearing gallbladder. The common bile duct is dilated to 1.3 cm there is mild intrahepatic b iliary ductal dilation. Unchanged additional 8 mm gallstone is seen in the distal common bile duct. L iver is otherwise unremarkable. Splenic calcification consistent with old granulomatous disease. Panc reas and bilateral adrenal glands are normal. There are bilateral renal cysts the largest on the righ t measuring 2.5 cm. Colonic diverticulosis with sigmoid and descending colon predominance but without adjacent inflammatory change to suggest diverticulitis. Small bowel and appendix are normal. Bladder is normal. No free intraperitoneal gas or fluid. No pathologically enlarged abdominal or pelvic lymp hadenopathy. There is calcified atherosclerosis of the aorta and many of the other arteries.00 chroni c L1 burst fracture. Severe lumbar spondylosis. IMPRESSION: 1. Decrease in size of a now small right pneumothorax with resolution of the prior gas component. 2. Moderate emphysema with unchanged region of consolidation with volume loss and bronchiectasis in t he right lower lobe consistent with likely post radiation treatment of a reported lung cancer. No corinne dence of local recurrence or metastatic disease. 3. Cholelithiasis and choledocholithiasis with unchanged mild intra and extra hepatic biliary ductal dilation. 4. Diverticulosis. Reviewed, dictated and finalized at location B. RMATION SPECIALIST IMPRESSION: 1. Decrease in size of a now small right pneumothorax with resolution of the pr ior gas component. 2. Moderate emphysema with unchanged region of consolidation with volume loss a nd bronchiectasis in the right lower lobe consistent with likely post radiation treatment of a reported lung cancer. No evidence of local recurrence or metast atic disease. 3. Cholelithiasis and choledocholithiasis with unchanged mild intra and extra h epatic biliary ductal dilation. 4. Diverticulosis.
== END 2024-04-11 08:56 | disposition home or self-care (01) ==
PROVIDERS: PCP Family Medicine; Visit Provider Internal Medicine Hematology & Oncology
DX: J43.9 Emphysema, unspecified (principal); J47.9 Bronchiectasis, uncomplicated; K80.20 Calculus of gallbladder without cholecystitis without obstruction; K80.50 Calculus of bile duct without cholangitis or cholecystitis without obstruction; K57.90 Diverticulosis of intestine, part unspecified, without perforation or abscess without bleeding; C34.90 Malignant neoplasm of unspecified part of unspecified bronchus or lung
CPT/HCPCS: 71260; 74177; Q9967

== ENCOUNTER 2024-05-20 10:19 | Outpatient (CLI) | payer MEDICARE, SELFPAY ==
--- NOTE | ~2024-05-20 | MR_ITS ---
EXAMINATION: MR brain/brain stem wo/w con DATE: 05/20/2024 11:41 INDICATION: Secondary malignant neoplasm of brain. TECHNIQUE: Magnetic resonance imaging (MRI) of the brain and brainstem was performed without and with 14 mL MultiHance intravenous contrast. COMPARISON: Brain MRI 03/04/2024 FINDINGS: There are scattered areas of nonspecific increased T2-weighted signal intensity in the cere bral white matter, which is within normal limits for the patient's age. There is no intracranial hemo rrhage, acute infarction, or abnormal intracranial mass lesion. There is a small old infarct in right cerebellum. The ventricles are normal in size. There are likely changes of ocular lens replacement s urgeries. There is mild mucosal thickening in the paranasal sinuses. There is a trace right mastoid e ffusion. IMPRESSION: 1. No evidence of metastatic disease. 2. Small old infarct in right cerebellum. Reviewed, dictated and finalized at location A. TER SLOTTER HELPER
--- OUTSIDE RECORDS SUMMARY | 2024-05-20 11:10 | XMS_ITS | Referral Summary ---
Author Organization [facility] Address [address] [place] [address] Care Team Providers Care Electric Motor Tester Assembler Name Role Phone Lucila Gomez MD Unavailable Source Comments [facility],non-owned Affiliates and Associated Physician Practices is amultiple site organization consisting of ambulatory clinics and hospital sitesin [place], [place], [place] and [place]. This disclosure is being madepursuant to the Care Everywhere program and may not contain all information available regarding this patient. Last updated 17.[facility] [employer] Allergies No known active allergies Medications * Be aware that medications may not be up to date on this document. Alwaysverify current medications with the patient. Medication Sig Dispensed Refills Start Date End Date Status piroxicam (FELDENE) 20 MG capsule Take 1 Cap by mouth daily. 90 Cap 6 03/03/2010 Active etanercept (ENBREL) injection Inject 50 mg subcutaneously as directed. Active FOLIC ACID PO Take by mouth daily. A ctive Calcium-Vitamin D (CALCIUM 500 +D PO) Take by mouth daily. Acti ve [place]-3 Fatty Acids (OMEGA 3 PO) Take by mouth. Ac tive ibuprofen (MOTRIN) 200 MG tablet Take 200 mg by mouth as needed. Active Cholecalciferol (D-3-5 PO) Take by mouth as directed. Active ALBUTEROL SULFATE PO Take by mouth as directed. Active diclofenac sodium (VOLTAREN) 75 MG tablet Take 1 Tab by mouth 2 times daily. 60 Tab 4 10/04/2010 Active Active Problems Problem Noted Date Diagnosed Date Compression fracture 03/03/2010 Social History Tobacco Use Types Packs/Day Years Used Date Smoking Tobacco: Former Alcohol Use Standard Drinks/Week Comments No 0 (1 standard drink = 0.6 oz pur e alcohol) Sex and Gender Information Value Date Recorded Sex Assigned at Not on file Gender Identity Not on file Sexual Orientation Not on file Last Filed Vital Signs Vital Sign Reading Time Taken Comments Blood Pressure - - Pulse - - Temperature - - Respiratory Rate - - Oxygen Saturation - - Inhaled Oxygen Concentration - - Weight 83.9 kg (185 lb) 03/03/2010 11:05 AM LAP GRINDER Height 182.9 cm (6') 03/03/2010 11:05 AM LAP GRINDER Body Mass Index 25.09 03/03/2010 11:05 AM LAP GRINDER Plan of Treatment Not on file Care Teams Electric Motor Tester Assembler Relationship Specialty Start Date End Date Lucila Gomez MD [address] [place], [place] [id number] Family Medicine 03/03/10
--- OUTSIDE RECORDS SUMMARY | 2024-05-20 11:10 | XMS_ITS | Clinical Summary ---
Author Organization [facility] Nuno Hyde Address [address] [place] [address] Care Team Providers Care Hiv Counselor Name Role Phone Lucila Gomez MD Primary Care Provider [phone] Allergies No known active allergies Medications albuterol sulfate HFA 90 mcg/actuation aerosol inhaler INHALE 2 PUFFS BY ORAL INHALATION FOUR TIMES A DAY NEEDED FOR COPD SHAKE WELL. RINSE MOUTHPIECE FREQUENTLY TO PREVENT CLOGGING. 3 Active budesonide-gly copyr-formoter ol 160-9-4.8 mcg/actuation HFA Aerosol Inhaler INHALE 2 PUFFS INHALATION TWICE A DAY DIRECTED FOR BREATHING (CLEAN INHALER FOLLOWED BY 2 PRIMING PUFFS ONCE WEEKLY) 2 Active etanercept (ENBREL) 25 mg/0.5 mL (0.5) Syringe INJECT 25 MG/0.5 ML UNDER THE SKIN EVERY OTHER WEEK *KEEP IN REFRIGERATOR* 3 Active pravastatin (PRAVACHOL) 20 mg tablet 10 mg. 2 Active acetaminophen (TYLENOL ARTHRITIS) 650 mg Extended Release tablet Take 650 mg by mouth every 6 hours as needed for Pain. Active lidocaine-pril ocaine (EMLA) 2.5-2.5 % CreamIndicatio ns:Small cell lung cancer (CMS/HCC) Apply to affected area see administration instructions. 30 Gram 1 3 Active diclofenac sodium (VOLTAREN) 1 % gel Apply to affected area 4 times daily. Active dexAMETHasone (DECADRON) 4 mg tablet Take 2 Tablets (8 mg) by mouth one time for 1 dose. Take in the morning on day of scheduled brain radiation with food. 2 Tablet 4 Active ondansetron (ZOFRAN ODT) 8 mg Tablet, Rapid DissolveIndica tions:Small cell lung cancer (CMS/HCC) Dissolve 1 tablet on top of tongue then swallow with saliva every 8 hours as needed for nausea or vomiting 30 Tablet 1 4 Active metroNIDAZOLE (FLAGYL) 500 mg tablet Take 1 Tablet (500 mg) by mouth 3 times daily for 10 days. 30 Tablet 4 Active furosemide (Lasix) 20 mg tablet Take 2 Tablets (40 mg) by mouth daily. 30 Tablet 1 4 Active potassium chloride (KLOR-CON M20) 20 mEq Extended Release tablet Take 1 Tablet (20 mEq) by mouth daily. 30 Tablet 1 4 Active megestroL (MEGACE) 400 mg/10 mL (40 mg/mL) suspension Take 10 mL (400 mg) by mouth daily. 480 mL 1 4 Active diphenoxylate- atropine 2.5 mg-0.025 mg tablet Take 1 Tablet by mouth 4 times daily as needed for Diarrhea/Loose Stools. 30 Tablet 4 Active Active Problems No known active problems Encounters Date Type Department Care Team Description 05/13/2024 Orders Only [facility]ology - [place] [address] [place] [address] Shawn Burnham MD Small cell carcinoma of lung, unspecified laterality, unspecified part of lung (CMS/HCC) 05/10/2024 Orders Only [facility] - [place] [address] [place] [address] Shawn Burnham MD 05/06/2024 Orders Only [facility] - [place] [address] [place] [address] Shawn Burnham MD 05/01/2024 External Device Data STL ABSTRACTION Provider, Abstract 05/01/2024 External Device Data STL ABSTRACTION Provider, Abstract 04/29/2024 Orders Only [facility] - [place] [address] [place] [address] Shawn Burnham MD Small cell carcinoma of lung, unspecified laterality, unspecified part of lung (CMS/HCC) 04/22/2024 Orders Only [facility] - [place] [address] [place] [address] Shawn Burnham MD 04/18/2024 8:30 AM CHILD CARE SUPERVISOR Office Visit [facility] - [place] [address] [place] [address] Shawn Burnham MD Small cell carcinoma of lung, unspecified laterality, unspecified part of lung (CMS/HCC) (Primary Dx) 04/15/2024 Orders Only [facility] - [place] [address] [place] [address] Shawn Burnham MD Small cell carcinoma of lung, unspecified laterality, unspecified part of lung (CMS/HCC) 04/12/2024 Orders Only [facility] - [place] [address] Shawn Burnham MD 04/01/2024 Orders Only [facility] - [place] [address] Shawn Burnham MD Small cell carcinoma of lung, unspecified laterality, unspecified part of lung (CMS/HCC) 03/22/2024 Orders Only [facility] - [place] [address] Shawn Burnham MD 03/21/2024 9:45 AM CHILD CARE SUPERVISOR Office Visit [facility] - [place] [address] Shawn Burnham MD Small cell carcinoma of lung, unspecified laterality, unspecified part of lung (CMS/HCC) (Primary Dx) 03/21/2024 Telephone [facility] - [place] [address] Shawn Burnham MD treatment break options 03/18/2024 Orders Only [facility] - [place] [address] Shawn Burnham MD Small cell carcinoma of lung, unspecified laterality, unspecified part of lung (CMS/HCC) 03/04/2024 Orders Only [facility] - [place] [address] Shawn Burnham MD Small cell carcinoma of lung, unspecified laterality, unspecified part of lung (CMS/HCC) 02/29/2024 Telephone [facility] - [place] [address] [place] [id number] Shawn Burnham MD treatment questions 02/23/2024 Orders Only [facility] - [place] [address] Shawn Burnham MD 02/22/2024 8:30 AM CHILD CARE SUPERVISOR Office Visit [facility]ology - [place] [address] [place] [id number] Shawn Burnham MD Small cell carcinoma of lung, unspecified laterality, unspecified part of lung (CMS/HCC) (Primary Dx) 02/22/2024 Orders Only [facility] - [place] [address] [place] [id number] Shawn Burnham MD Small cell carcinoma of lung, unspecified laterality, unspecified part of lung (CMS/HCC) (Primary Dx) from Last 3 Months Family History Medical History Relation Name Comments No Known Problems Brother 4 brothers No Known Problems Daughter Pancreatic Cancer Father Heart Disease Mother Heart Disease Sister 5 sisters No Known Problems Son Relation Name Status Comments Brother 4 brothers Daughter Alive Father Mother Sister 5 sisters Son Alive Social History Tobacco Use Types Packs/Day Years Used Date Smoking Tobacco: Former Cigarettes 3 34 0 04/10/1954 - 04/10/1988 Smokeless Tobacco: Never Tobacco Cessation:Counseling Given: Not Answered Alcohol Use Standard Drinks/Week Comments Never 0 (1 standard drink = 0.6 oz pur e alcohol) Sex and Gender Information Value Date Recorded Sex Assigned at Not on file Legal Sex Male 1:39 PM CDT Gender Identity Not on file Sexual Orientation Not on file Last Filed Vital Signs Vital Sign Reading Time Taken Comments Blood Pressure 132/77 04/18/2024 8:38 AM CHILD CARE SUPERVISOR Pulse 75 04/18/2024 8:38 AM CHILD CARE SUPERVISOR Temperature 36.5 C (97.7 F) 04/18/2024 8:38 AM CHILD CARE SUPERVISOR Respiratory Rate 15 04/18/2024 8:38 AM CHILD CARE SUPERVISOR Oxygen Saturation 92% 04/18/2024 8:38 AM CHILD CARE SUPERVISOR Inhaled Oxygen Concentration - - Weight 74.1 kg (163 lb 6.4 oz) 04/18/2024 8:38 A M CHILD CARE SUPERVISOR Height 177.8 cm (5' 10 ) 12/29/2022 10:27 AM CDT Body Mass Index 23.45 12/29/2022 10:27 AM CDT Plan of Treatment Upcoming Encounters Date Type Department Care Team (Late st Contact Info) Description 05/23/2024 9:30 AM CHILD CARE SUPERVISOR Office Visit [facility] On[facility] Hematology - [place] [address] [place] [address] [facility] [address] [place] [address] Shawn Burnham MD [address] [place] [address] Health Maintenance Due Date Last Done Comments Traditional Medicare (ACO) A nnual Wellness Visit 1954 RSV VACCINE (60+ or ) (1 - 1-dose 75+ series) 2012 PNEUMOCOCCAL VACCINE 65+ YEA RS (2 of 2 - PPSV23) 05/26/2015 03/31/2015, 09/06/2011, 06/21/2002 COVID-19 Vaccine (2023-2 5 season) 2023 01/09/2023, 01/19/2022, 01/19/2021, Additional history exists DTAP/TDAP/TD VACCINES (3 - T d or Tdap) 11/30/2025 12/01/2015, 04/10/2006 ZOSTER VACCINE Completed 05/25/2021, 03/24/2021 INFLUENZA VACCINE Completed 12/15/2023, , 01/19/2022, Additional history exists Procedures Procedure Name Priority Date/Time Associated Diagnosis Comments COMPREHENSIVE METABOLIC PANEL Routine 05/09/2024 12:32 PM CHILD CARE SUPERVISOR BASIC METABOLIC PANEL Routine 05/09/2024 11:50 AM CHILD CARE SUPERVISOR CBC WITH DIFFERENTIAL Routine 05/09/2024 10:53 AM CHILD CARE SUPERVISOR COMPREHENSIVE METABOLIC PANEL Routine 05/02/2024 12:53 PM CHILD CARE SUPERVISOR COMPREHENSIVE METABOLIC PANEL Routine 05/02/2024 12:07 PM CHILD CARE SUPERVISOR COMPREHENSIVE METABOLIC PANEL Routine 04/18/2024 1:23 PM CHILD CARE SUPERVISOR BASIC METABOLIC PANEL Routine 04/18/2024 1:10 PM CHILD CARE SUPERVISOR CBC WITH AUTODIFFERENTIAL Routine 2024 1:[address] CHEST ABDOMEN PELVIS W CONT Routine 04/11/2024 8:01 AM CHILD CARE SUPERVISOR BASIC METABOLIC PANEL Routine 03/21/2024 2:35 PM CHILD CARE SUPERVISOR COMPREHENSIVE METABOLIC PANEL Routine 03/21/2024 2:04 PM CHILD CARE SUPERVISOR COMPREHENSIVE METABOLIC PANEL Routine 02/29/2024 12:51 PM CHILD CARE SUPERVISOR COMPREHENSIVE METABOLIC PANEL Routine 02/22/2024 2:26 PM CHILD CARE SUPERVISOR CBC WITH DIFFERENTIAL Routine 02/22/2024 12:20 PM CHILD CARE SUPERVISOR BASIC METABOLIC PANEL Routine 02/22/2024 11:44 AM CHILD CARE SUPERVISOR from Last 3 Months Results * COMPREHENSIVE METABOLIC PANEL (05/09/2024 12:32 PM CHILD CARE SUPERVISOR) Only the most recent of7 resultswithin the time period is included. Blood us Shawn Burnham MD CHEMISTRY ORDERABLES Final Resu lt * BASIC METABOLIC PANEL (05/09/2024 11:50 AM CHILD CARE SUPERVISOR) Only the most recent of4 resultswithin the time period is included. Blood us Shawn Burnham MD CHEMISTRY ORDERABLES Final Resu lt * CBC WITH DIFFERENTIAL (05/09/2024 10:53 AM CHILD CARE SUPERVISOR) Only the most recent of2 resultswithin the time period is included. Blood us Shawn Burnham MD HEMATOLOGY ORDERABLES Final Res ult * CBC WITH AUTODIFFERENTIAL (04/18/2024 1:08 PM CHILD CARE SUPERVISOR) Blood Shawn Burnham MD HEMATOLOGY ORDERABLES Final Res ult * CT CHEST ABDOMEN PELVIS W CONT (04/11/2024 8:01 AM CHILD CARE SUPERVISOR) Anatomical Region Laterality Modality Chest Other us Shawn Burnham MD CT ORDERABLES Final Result from Last 3 Months Additional Health Concerns Infection Onset Date Last Indicated R/O C. diff 10/23/2023 10/23/2023 Insurance MEDICARE PART A AND B [facility] MEDICARE PART A AND B BCBS SUPP Care Teams Hiv Counselor Relationship Specialty Start Date End Date Lucila Gomez MD [address] [place] [address] PCP - General Family Practice 12/14/22
--- OUTSIDE RECORDS SUMMARY | 2024-05-20 11:10 | XMS_ITS | Clinical Summary ---
Author Organization [facility] Address [facility] [address] [place] [address] Care Team Providers Care Publication Specialist Name Role Phone Unavailable Primary Care Provider Unavailabl e Social History Tobacco Use Types Packs/Day Years Used Date Smoking Tobacco: Never Assessed Sex and Gender Information Value Date Recorded Sex Assigned at Not on file Legal Sex Male 5:52 PM BOX STORAGE WORKER Gender Identity Not on file Sexual Orientation Not on file Plan of Treatment Health Maintenance Due Date Last Done Comments DTaP, Tdap and Td Vaccines ( 1 - Tdap) 1956 Zoster Vaccines (1 of 2) 1987 Pneumococcal Vaccine: 65+ Ye ars (1 of 1 - PCV) 2002 RSV Immunization or 60+ Years (1 - 1-dose 75+ series) 2012 COVID-19 Vaccine (2023-2 5 season) 2023 Influenza Adult (#1) 2024 Meningococcal B Vaccine Aged Out No l onger eligible based on patient's age to complete this topic Meningococcal Vaccine Aged Out No yennifer lore eligible based on patient's age to complete this topic RSV Immunizations Under 20 Months Aged Out No longer eligible based on patient's age to complete this topic
--- OUTSIDE RECORDS SUMMARY | 2024-05-20 11:10 | XMS_ITS | Referral Summary ---
Author Organization [facility] Address [address] [place] [address] Care Team Providers Care Veneer Sorter Name Role Phone No, Physician Primary Care Provider [phone] Allergies No known active allergies Medications etanercept (ENBREL) 25 mg (1 mL) injection Inject 2 mL (50 mg total) under the skin as directed Active budesonide-glyc opyr-formoterol (Breztri Aerosphere) 160-9-4.8 mcg/actuation HFA aerosol inhaler Inhale Active Active Problems No known active problems Social History Tobacco Use Types Packs/Day Years Used Date Smoking Tobacco: Never Assessed Personal Safety Answer Date Recorded Have you ever been in or are you currently in a harmful physical or emotional relationship or is someone making you feel afraid or unsafe? Denies 11/18/2022 Sex and Gender Information Value Date Recorded Sex Assigned at Not on file Legal Sex Male 12:00 AM BREAKDOWN WORKER Gender Identity Not on file Sexual Orientation Not on file Last Filed Vital Signs Vital Sign Reading Time Taken Comments Blood Pressure 126/63 11/18/2022 9:00 PM CDT Pulse 79 11/18/2022 9:00 PM CDT Temperature 36.8 C (98.2 F) 11/18/2022 1:39 PM CDT Respiratory Rate 16 11/18/2022 5:30 PM CDT Oxygen Saturation 98% 11/18/2022 9:00 PM CDT Inhaled Oxygen Concentration - - Weight 83.9 kg (185 lb) 11/18/2022 1:39 PM CDT Height 177.8 cm (5' 10 ) 11/18/2022 1:39 PM CDT Body Mass Index 26.54 11/18/2022 1:39 PM CDT Plan of Treatment Not on file Insurance MEDICARE [facility] MEDICARE [facility] MEDICARE [facility] Care Teams Veneer Sorter Relationship Specialty Start Date End Date No, Physician PCP - General 11/18/22
--- OUTSIDE RECORDS SUMMARY | 2024-05-20 11:10 | XMS_ITS | Patient Health Summary ---
Author Organization [facility] Address [address] [place] [address] Care Team Providers Care Auto Former Machine Operator Name Role Phone Lucila Gomez MD Unavailable Note from [facility],non-owned Affiliates and Associated Physician Practices is amultiple site organization consisting of ambulatory clinics and hospital sitesin [place], [place], [place] and [place]. This disclosure is being madepursuant to the Care Everywhere program and may not contain all information available regarding this patient. Last updated 17.[facility] [employer] Allergies No known active allergies Medications * Be aware that medications may not be up to date on this document. Alwaysverify current medications with the patient. * piroxicam (FELDENE) 20 MG capsule(Started 03/03/2010) Take 1 Cap by mouth daily. 6 refills left * etanercept (ENBREL) injection Inject 50 mg subcutaneously as directed. * FOLIC ACID PO Take by mouth daily. * Calcium-Vitamin D (CALCIUM 500 +D PO) Take by mouth daily. * [place]-3 Fatty Acids (OMEGA 3 PO) Take by mouth. * ibuprofen (MOTRIN) 200 MG tablet Take 200 mg by mouth as needed. * Cholecalciferol (D-3-5 PO) Take by mouth as directed. * ALBUTEROL SULFATE PO Take by mouth as directed. * diclofenac sodium (VOLTAREN) 75 MG tablet(Started 10/04/2010) Take 1 Tab by mouth 2 times daily. 4 refills left Active Problems Problem Noted Date Diagnosed Date [...] 83.9 kg (185 lb) 03/03/2010 11:05 AM SENIOR ADMINISTRATIVE SUPPORT Height 182.9 cm (6') 03/03/2010 11:05 AM SENIOR ADMINISTRATIVE SUPPORT Body Mass Index 25.09 03/03/2010 11:05 AM SENIOR ADMINISTRATIVE SUPPORT Care Teams Auto Former Machine Operator Relationship Specialty Start Date End Date Lucila Gomez MD [address] [place] [address] Family Medicine 03/03/10
--- OUTSIDE RECORDS SUMMARY | 2024-05-20 11:10 | XMS_ITS | Clinical Summary ---
Author Organization [facility] Address [address] [place] [address] Care Team Providers Care Ship'S Captain Name Role Phone No, Physician Primary Care Provider [phone] Allergies No known active allergies Medications etanercept [...] on file Legal Sex Male 12:00 AM ROTOR BALANCER Gender Identity Not on file Sexual Orientation Not on file Obstetrics History Last Filed Vital Signs Vital Sign Reading [...] 11/18/2022 1:39 PM CDT Plan of Treatment Health Maintenance Due Date Last Done Comments Depression Screening 1935 Fall Risk Assessment 1935 Hepatitis B Screening 1955 Zoster Vaccine (1 of 2) 1987 Pneumococcal vaccine 65+ (1 of 1 - PCV) 2002 Well Visit 65+ 2002 Covid-19 Vaccine (4 - 2023-2 5 season) 2023 01/19/2022, 06/05/2020, 05/08/2020 Influenza Vaccine (#1) 2023 , 01/12/2021, 01/24/2020, Additional history exists DTaP/Tdap/Td Vaccine (2 - Td or Tdap) 11/30/2025 12/01/2015 Insurance MEDICARE [facility] MEDICARE [facility] MEDICARE [facility] Care Teams Ship'S Captain Relationship Specialty Start Date End Date No, Physician PCP - General 11/18/22
--- OUTSIDE RECORDS SUMMARY | 2024-05-20 11:10 | XMS_ITS | Clinical Summary ---
Author Organization [facility] Address [address] [place] [address] Care Team Providers Care Plastics Bench Mechanic Name Role Phone Lucila Gomez MD Unavailable Source Comments [facility],non-owned Affiliates and Associated Physician Practices is amultiple site organization consisting of ambulatory clinics and hospital sitesin [place], [place], [place] and [place]. This disclosure is being madepursuant to the Care Everywhere program and may not contain all information available regarding this patient. Last updated 17.[facility] [employer] Allergies No known active allergies Medications * [...] PO) Take by mouth daily. Acti ve [place]-3 Fatty Acids (OMEGA 3 PO) Take by [...] 83.9 kg (185 lb) 03/03/2010 11:05 AM OVERHAULER HELPER Height 182.9 cm (6') 03/03/2010 11:05 AM OVERHAULER HELPER Body Mass Index 25.09 03/03/2010 11:05 AM OVERHAULER HELPER Plan of Treatment Health Maintenance Due Date Last Done Comments MEDICARE AWV 12 MONTHS 1935 DTAP/TDAP/TD VACCINES (1 - Tdap) 1956 PNEUMOCOCCAL VACCINE 50+ (1 of 1 - PCV) 1987 ZOSTER VACCINE (1 of 2) 1987 Respiratory Syncytial Virus (RSV) Vaccine Pt: or over 60 yrs (1 - 1-dose 75+ series) 2012 COVID-19 VACCINE ( - 2023-2 5 season) 2023 INFLUENZA VACCINE (#1) 2023 DEPRESSION SCREENING 04/10/2024 HEPATITIS B VACCINE Aged Out No longe r eligible based on patient's age to complete this topic HIB VACCINE Aged Out No longer eligi ble based on patient's age to complete this topic HPV VACCINE Aged Out No longer eligi ble based on patient's age to complete this topic MENINGOCOCCAL (Group B) VACCINE Aged Out No longer eligible based on patient's age to complete this topic MENINGOCOCCAL VACCINE Aged Out No yennifer lore eligible based on patient's age to complete this topic Care Teams Plastics Bench Mechanic Relationship Specialty Start Date End Date Lucila Gomez MD [address] [place], [place] [id number] Family Medicine 03/03/10
== END 2024-05-20 10:20 | disposition home or self-care (01) ==
PROVIDERS: PCP Family Medicine; Visit Provider Radiology Radiation Oncology
DX: C79.31 Secondary malignant neoplasm of brain (principal); Z86.73 Personal history of transient ischemic attack (TIA), and cerebral infarction without residual deficits
CPT/HCPCS: 70553; A9577

== ENCOUNTER 2024-07-10 07:15 | Outpatient (CLI) | payer MEDICARE, SELFPAY ==
--- NOTE | ~2024-07-10 | CT_ITS ---
Clinical Indication: Small cell carcinoma CT Scan of the Chest, Abdomen, and Pelvis with Contrast: Technique: Contiguous sections were acquired throughout the chest, abdomen, and pelvis after intraven ous administration of 100 cc of Omnipaque 350. Dose reduction technique was used on this scan by milo ospina automated exposure control and iterative reconstruction technique. The dose-length product (DL P) was 680.31 mGy-cm. Comparison: 04/11/2024 Findings: There is no evidence of any significant mediastinal, hilar or axillary lymphadenopathy. The mediastin al soft tissues an vascular structures appear normal. No pericardial effusion. Stable small right pleural effusion. No left pleural effusion. Stable emphysematous change and chronic interstitial change. There is stable right basilar consolidat ion with air bronchograms, suggestive of posttreatment/post radiation change. The liver, spleen, pancreas, adrenals and kidneys are within normal limits. Gallstones are present. T here are atherosclerotic calcifications of the aorta. No lymphadenopathy. No bowel obstruction or bowel wall thickening. There is no evidence to suggest acute appendicitis. Urinary bladder is unremarkable. No pelvic mass seen. No ascites. Chronic L1 compression fracture pre sent. Impression: No evidence for active malignancy or metastatic disease. Stable small right pleural effusion and probable posttreatment/postradiation change at the right lung base. Stable emphysematous change and chronic interstitial pulmonary disease. Cholelithiasis. Reviewed, dictated and finalized at [facility]. Impression: No evidence for active malignancy or metastatic disease. Stable small right pleural effusion and probable posttreatment/postradiation ch nancy at the right lung base. Stable emphysematous change and chronic interstitial pulmonary disease. Cholelithiasis.
--- OUTSIDE RECORDS SUMMARY | 2024-07-10 07:17 | XMS_ITS | Clinical Summary ---
Author Organization [facility] Nuno Hyde Address [address] [place] [address] Care Team Providers Care Vice President Industrial Relations Name Role Phone Lucila Gomez MD Primary Care Provider [phone] Allergies No known active allergies Medications albuterol [...] Encounters Date Type Department Care Team Description 07/08/2024 Orders Only [facility] Oncology and Hematology - [place] [address] [place] [id number] Shawn Burnham MD Small cell carcinoma of lung, unspecified laterality, unspecified part of lung ([facility]/HCC) 06/26/2024 External Device Data STL ABSTRACTION Provider, Abstract 06/24/2024 Orders Only [facility] Oncology and Hematology - [place] [address] [place] [address] Shawn Burnham MD Small cell carcinoma of lung, unspecified laterality, unspecified part of lung (CMS/HCC) 06/20/2024 8:30 AM CDT Office Visit [facility] Oncology and Hematology - [place] Trevor [address] [place] [address] Shawn Burnham MD Small cell carcinoma of lung, unspecified laterality, unspecified part of lung ([facility]/HCC) (Primary Dx) 06/15/2024 External Device Data STL ABSTRACTION Provider, Abstract 06/14/2024 External Device Data STL ABSTRACTION Provider, Abstract 06/14/2024 Orders Only [facility] Oncology and Hematology - [place] [address] Shawn Burnham MD 06/10/2024 Orders Only [facility] Oncology and Hematology - [place] [address] [place] [id number] Shawn Burnham MD Small cell carcinoma of lung, unspecified laterality, unspecified part of lung (CMS/HCC) 05/30/2024 Orders Only [facility] Oncology and Hematology - [place] [address] [place] [id number] Shawn Burnham MD 05/30/2024 Abstract [facility] Oncology and Hematology - [place] [address] [place] [id number] Shawn Burnham MD 2024 External Device Data STL ABSTRACTION Provider, Abstract 05/27/2024 Orders Only [facility] Oncology and Hematology - [place] [address] [place] [id number] Shawn Burnham MD Small cell carcinoma of lung, unspecified laterality, unspecified part of lung (CMS/HCC) 05/23/2024 9:30 AM BUILDING INSPECTION ENGINEER Office Visit [facility] Oncology and Hematology - [place] [address] [place] [id number] Shawn Burnham MD Small cell carcinoma of lung, unspecified laterality, unspecified part of lung (CMS/HCC) (Primary Dx) 05/13/2024 Orders Only [facility] Oncology and Hematology - [place] [address] [place] [address] Shawn Burnham MD Small cell carcinoma of lung, unspecified laterality, unspecified part of lung (CMS/HCC) 05/10/2024 Orders Only [facility] Oncology and Hematology - [place] [address] [place] [address] Shawn Burnham MD 05/06/2024 Orders Only [facility] Oncology and Hematology - [place] [address] Shawn Burnham MD 05/01/2024 External Device Data STL ABSTRACTION Provider, Abstract 05/01/2024 External Device Data STL ABSTRACTION Provider, Abstract 04/29/2024 Orders Only [facility] Oncology and Hematology - [place] [address] Shawn Burnham MD Small cell carcinoma of lung, unspecified laterality, unspecified part of lung (CMS/HCC) 04/22/2024 Orders Only [facility] Oncology and Hematology - [place] [address] Shawn Burnham MD 04/18/2024 8:30 AM BUILDING INSPECTION ENGINEER Office Visit [facility] Oncology and Hematology - [place] [address] Shawn Burnham MD Small cell carcinoma of lung, unspecified laterality, unspecified part of lung (CMS/HCC) (Primary Dx) 04/15/2024 Orders Only [facility] Oncology and Hematology - [place] [address] Shawn Burnham MD Small cell carcinoma of lung, unspecified laterality, unspecified part of lung (CMS/HCC) 04/12/2024 Orders Only [facility] Oncology and Hematology - [place] [address] Shawn Burnham MD from Last 3 Months Family History Medical [...] Sign Reading Time Taken Comments Blood Pressure 132/73 06/20/2024 8:38 AM CDT Pulse 75 06/20/2024 8:38 AM CDT Temperature 35.9 C (96.6 F) 06/20/2024 8:38 AM CDT Respiratory Rate 15 06/20/2024 8:38 AM CDT Oxygen Saturation 90% 06/20/2024 8:38 AM CDT Inhaled Oxygen Concentration - - Weight 75.5 kg (166 lb 6.4 oz) 06/20/2024 8:38 A M CDT Height 177.8 cm (5' 10 ) 12/29/2022 10:27 AM CDT Body Mass Index 23.88 12/29/2022 10:27 AM CDT Plan of Treatment Upcoming Encounters Date Type Department Care Team (Late st Contact Info) Description 07/25/2024 9:00 AM CDT Office Visit [facility] Oncology and Hematology - [place] [address] [place] [address] [facility] [address] [place] [address] Shawn Burnham MD [address] [facility] [address] [place] [address] Health Maintenance Due Date Last Done Comments Traditional Medicare (ACO) A nnual Wellness Visit 1954 RSV VACCINE (60+ or ) (1 - 1-dose 75+ series) 2012 PNEUMOCOCCAL VACCINE 50+ YEA RS (2 of 2 - PPSV23) 05/26/2015 03/31/2015, 09/06/2011, 06/21/2002 COVID-19 Vaccine (2023-2 5 season) 2023 01/09/2023, 01/19/2022, 01/19/2021, Additional history exists DTAP/TDAP/TD VACCINES (3 - T d or Tdap) 11/30/2025 12/01/2015, 04/10/2006 ZOSTER VACCINE Completed 05/25/2021, 03/24/2021 INFLUENZA VACCINE Completed 12/15/2023, , 01/19/2022, Additional history exists Procedures Procedure Name Priority Date/Time Associated Diagnosis Comments BASIC METABOLIC PANEL Routine 06/13/2024 8:51 AM BUILDING INSPECTION ENGINEER CBC WITH DIFFERENTIAL Routine 05/30/2024 1:33 PM BUILDING INSPECTION ENGINEER COMPREHENSIVE METABOLIC PANEL Routine 05/09/2024 12:32 PM BUILDING INSPECTION ENGINEER BASIC METABOLIC PANEL Routine 05/09/2024 11:50 AM BUILDING INSPECTION ENGINEER CBC WITH DIFFERENTIAL Routine 05/09/2024 10:53 AM BUILDING INSPECTION ENGINEER COMPREHENSIVE METABOLIC PANEL Routine 05/02/2024 12:53 PM BUILDING INSPECTION ENGINEER COMPREHENSIVE METABOLIC PANEL Routine 05/02/2024 12:07 PM BUILDING INSPECTION ENGINEER COMPREHENSIVE METABOLIC PANEL Routine 04/18/2024 1:23 PM BUILDING INSPECTION ENGINEER BASIC METABOLIC PANEL Routine 04/18/2024 1:10 PM BUILDING INSPECTION ENGINEER CBC WITH AUTODIFFERENTIAL Routine 2024 1:08 PM BUILDING INSPECTION ENGINEER CT CHEST ABDOMEN PELVIS W CONT Routine 04/11/2024 8:01 AM BUILDING INSPECTION ENGINEER from Last 3 Months Results * BASIC METABOLIC PANEL (06/13/2024 8:51 AM BUILDING INSPECTION ENGINEER) Only the most recent of3 resultswithin the time period is included. Blood us Shawn Burnham MD CHEMISTRY ORDERABLES Final Resu lt * CBC WITH DIFFERENTIAL (05/30/2024 1:33 PM BUILDING INSPECTION ENGINEER) Only the most recent of2 resultswithin the time period is included. Blood us Shawn Burnham MD HEMATOLOGY ORDERABLES Final Res ult * COMPREHENSIVE METABOLIC PANEL (05/09/2024 12:32 PM BUILDING INSPECTION ENGINEER) Only the most recent of4 resultswithin the time period is included. Blood us Shawn Burnham MD CHEMISTRY ORDERABLES Final Resu lt * CBC WITH AUTODIFFERENTIAL (04/18/2024 1:08 PM BUILDING INSPECTION ENGINEER) Blood Shawn Burnham MD HEMATOLOGY ORDERABLES Final Res ult * CT CHEST ABDOMEN PELVIS W CONT (04/11/2024 8:01 AM BUILDING INSPECTION ENGINEER) Anatomical Region Laterality Modality Chest Computed Tomogra phy Shawn Burnham MD CT ORDERABLES Final Result from Last 3 Months Additional Health Concerns Infection Onset Date Last Indicated R/O C. diff 10/23/2023 10/23/2023 Insurance MEDICARE PART A AND B [facility] SUPP Care Teams Vice President Industrial Relations Relationship Specialty Start Date End Date Lucila Gomez MD [address] [place] [address] PCP - General Family Practice 12/14/22
--- OUTSIDE RECORDS SUMMARY | 2024-07-10 07:17 | XMS_ITS | Clinical Summary ---
Author Organization [facility] Address [address] [place] [address] Care Team Providers Care Signal Supervisor Name Role Phone Lucila Gomez MD Unavailable Source Comments [facility],non-owned Affiliates and Associated Physician Practices is amultiple site organization consisting of ambulatory clinics and hospital sitesin [place], [place], [place] and [place]. This disclosure is being madepursuant to the Care Everywhere program and may not contain all information available regarding this patient. Last updated 17.[facility] Allergies No known active allergies Medications * [...] PO) Take by mouth daily. Acti ve [place]-3 Fatty Acids (OMEGA 3 PO) Take by [...] 83.9 kg (185 lb) 03/03/2010 11:05 AM METAL CANS SUPERVISOR Height 182.9 cm (6') 03/03/2010 11:05 AM METAL CANS SUPERVISOR Body Mass Index 25.09 03/03/2010 11:05 AM METAL CANS SUPERVISOR Plan of Treatment Health Maintenance Due Date [...] to complete this topic MENINGOCOCCAL (Group B) VACC INE SHARED DECISION-MAKING Aged Out No longer eligibl e based on patient's age to complete this topic MENINGOCOCCAL GROUPS A/C/Y/W VACCINE Aged Out No longer eligible b ased on patient's age to complete this topic Care Teams Signal Supervisor Relationship Specialty Start Date End Date Lucila Gomez MD [address] [place] [address] Family Medicine 03/03/10
--- OUTSIDE RECORDS SUMMARY | 2024-07-10 07:17 | XMS_ITS | Clinical Summary ---
Author Organization [facility] Address [address] [place] [address] Care Team Providers Care Weaver Tire Cord Name Role Phone Unavailable Primary Care Provider Unavailabl e Social History Tobacco Use Types Packs/Day Years Used Date Smoking Tobacco: Never Assessed Sex and Gender Information Value Date Recorded Sex Assigned at Not on file Legal Sex Male 5:52 PM DIRECT CHILL CASTER Gender Identity Not on file Sexual Orientation Not on file Plan of Treatment Health Maintenance Due Date Last Done Comments DTaP, Tdap and Td Vaccines ( 1 - Tdap) 1956 Zoster Vaccines (1 of 2) 1987 Pneumococcal Vaccine: 65+ Ye ars (1 of 1 - PCV) 2002 RSV Immunization or 60+ Years (1 - 1-dose 75+ series) 2012 COVID-19 Vaccine ( - 2023-2 5 season) 2023 Meningococcal B Vaccine Aged Out No l onger eligible based on patient's age to complete this topic Meningococcal Vaccine Aged Out No yennifer lore eligible based on patient's age to complete this topic RSV Immunizations Under 20 Months Aged Out No longer eligible based on patient's age to complete this topic
--- OUTSIDE RECORDS SUMMARY | 2024-07-10 07:17 | XMS_ITS | Encounter Summary ---
Author Organization [facility] [place] Address [address] [place] [address] Care Team Providers Care Assault Amphibious Vehicle Crewman Name Role Phone Lucila Gomez MD Primary Care Provider [phone] Encounter Details Date Type Department Care Team (Late st Contact Info) Description 07/08/2024 Orders Only [facility] Oncology and Hematology - [place] [address] [place] [address] Shawn Burnham MD [address] [place] [address] Small cell carcinoma of lung, unspecified laterality, unspecified part of lung (CMS/HCC) Social History Tobacco Use Types Packs/Day Years Used Date Smoking Tobacco: Former Cigarettes 3 34 0 04/10/1954 - 04/10/1988 Smokeless Tobacco: Never Alcohol Use Standard Drinks/Week Comments Never 0 (1 standard drink = 0.6 oz pur e alcohol) Sex and Gender Information Value Date Recorded Sex Assigned at Not on file Legal Sex Male 1:39 PM CDT Gender Identity Not on file Sexual Orientation Not on file documented as of this encounter Plan of Treatment Upcoming Encounters Date Type Department Care Team (Late st Contact Info) Description 07/25/2024 9:00 AM CDT Office Visit [facility] Oncology and Hematology - [place] [address] [place] [address] Shawn Burnham MD [address] [place] [address] documented as of this encounter Visit Diagnoses Diagnosis Small cell carcinoma of lung, unspecified laterality, unspecified part of lung (CMS/HCC) documented in this encounter Additional Health Concerns Infection Onset Date Last Indicated Resolved Time R/O C. diff 10/23/2023 10/23/2023 documented as of this encounter Care Teams Assault Amphibious Vehicle Crewman Relationship Specialty Start Date End Date Lucila Gomez MD [address] [place] [id number] PCP - General Family Practice 12/14/22 documented as of this encounter
--- OUTSIDE RECORDS SUMMARY | 2024-07-10 07:18 | XMS_ITS | Referral Summary ---
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
--- OUTSIDE RECORDS SUMMARY | 2024-07-10 07:18 | XMS_ITS | Clinical Summary ---
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
== END 2024-07-10 07:16 | disposition home or self-care (01) ==
PROVIDERS: PCP Family Medicine; Visit Provider Internal Medicine Hematology & Oncology
DX: J90 Pleural effusion, not elsewhere classified (principal); J43.9 Emphysema, unspecified; J84.89 Other specified interstitial pulmonary diseases; K80.20 Calculus of gallbladder without cholecystitis without obstruction; C34.90 Malignant neoplasm of unspecified part of unspecified bronchus or lung
CPT/HCPCS: 71260; 74177; Q9967

== ENCOUNTER 2024-09-24 08:44 | Outpatient (CLI) | payer MEDICARE, SELFPAY ==
--- NOTE | ~2024-09-24 | CT_ITS ---
Clinical Indication: Lung cancer CT Scan of the Chest with Contrast: Technique: Contiguous sections were acquired throughout the chest after intravenous administration of 75 cc of Omnipaque 350. Dose reduction technique was used on this scan by utilizing automated exposu re control and iterative reconstruction technique. The dose-length product (DLP) was 195.52 mGy-cm. COMPARISON: 07/10/2024 Findings: There is no evidence of any significant mediastinal, hilar or axillary lymphadenopathy. There is no f illing defect in the pulmonary arterial tree to suggest pulmonary embolus. There is no evidence of ao rtic dissection or aneurysm. No pericardial effusion. Stable small right pleural effusion. There is stable probable chronic post radiation change or scarri ng at the right lung base with associated right-sided volume loss. There is mild chronic interstitial disease in the right lung. Moderate emphysema present bilaterally. Minimal chronic interstitial gupta ges are present peripherally in the left lung. Images through the upper abdomen reveal small calcified gallstones. Stable L1 compression fracture. Impression: No change from prior exam. Stable presumed perforation changes or other chronic scarring or atelectas is at the right lung base with associated stable small right pleural effusion. No evidence for active malignancy or metastatic disease. Stable emphysema and chronic interstitial changes in the lungs. Cholelithiasis. Reviewed, dictated and finalized at location . Impression: No change from prior exam. Stable presumed perforation changes or other chronic scarring or atelectasis at the right lung base with associated stable small ri ght pleural effusion. No evidence for active malignancy or metastatic disease. Stable emphysema and chronic interstitial changes in the lungs. Cholelithiasis.
--- OUTSIDE RECORDS SUMMARY | 2024-09-24 09:04 | XMS_ITS | Referral Summary ---
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
--- OUTSIDE RECORDS SUMMARY | 2024-09-24 09:04 | XMS_ITS | Clinical Summary ---
Author Organization [facility] Nuno Hyde Address [address] [place] [address] Care Team Providers Care Construction Driver Name Role Phone Lucila Gomez MD Primary Care Provider [phone] Allergies No known active allergies Medications albuterol [...] Tablet, Rapid DissolveIndica tions:Small cell lung cancer ([facility]/HCC) Dissolve 1 tablet on top of tongue [...] Encounters Date Type Department Care Team Description 09/16/[address] [facility] Oncology and Hematology - [place] [address] [place] [address] Shawn Burnham MD Small cell carcinoma of lung, unspecified laterality, unspecified part of lung ([facility]/HCC) 09/03/2024 External Device Data STL ABSTRACTION Provider, Abstract 09/02/[address] [facility] Oncology and Hematology - [place] [address] [place] [address] Shawn Burnham MD Small cell carcinoma of lung, unspecified laterality, unspecified part of lung ([facility]/HCC) 08/29/2024 External Device Data STL ABSTRACTION Provider, Abstract 08/28/2024 External Device Data STL ABSTRACTION Provider, Abstract 08/27/2024 External Device Data STL ABSTRACTION Provider, Abstract 08/19/[address] [facility] Oncology and Hematology - [place] [address] [place] [address] Shawn Burnham MD Small cell carcinoma of lung, unspecified laterality, unspecified part of lung (CMS/HCC) 08/05/2024 [facility] Oncology and Hematology - [place] [address] Shawn Burnham MD Small cell carcinoma of lung, unspecified laterality, unspecified part of lung (CMS/HCC) 07/26/[address] [facility] Oncology and Hematology - [place] [address] Shawn Burnham MD 07/25/2024 9:00 AM CDT Office Visit [facility] Oncology and Hematology - [place] [address] Shawn Burnham MD Small cell carcinoma of lung, unspecified laterality, unspecified part of lung (CMS/HCC) (Primary Dx) 07/22/[address] [facility] Oncology and Hematology - [place] [address] Shawn Burnham MD Small cell carcinoma of lung, unspecified laterality, unspecified part of lung (CMS/HCC) 07/12/2024 [facility] Oncology and Hematology - [place] [address] Shawn Burnham MD 07/11/2024 Orders Only [facility] Oncology and Hematology - [place] [address] Shawn Burnham MD 07/10/2024 Orders Only [facility] Oncology and Hematology - [place] [address] Shawn Burnham MD 07/08/2024 Orders Only [facility] Oncology and Hematology - [place] [address] Shawn Burnham MD Small cell carcinoma of lung, unspecified laterality, unspecified part of lung (CMS/HCC) 06/26/2024 External Device Data STL ABSTRACTION Provider, Abstract 06/24/[address] [facility] Oncology and Hematology [facility] [address] [place] [address] Shawn Burnham MD Small cell carcinoma of lung, unspecified laterality, unspecified part of lung (CMS/HCC) from Last 3 Months Family History Medical [...] Sign Reading Time Taken Comments Blood Pressure 138/83 07/25/2024 9:27 AM CDT Pulse 77 07/25/2024 9:25 AM CDT Temperature 36.1 C (97 F) 07/25/2024 9:25 AM CDT Respiratory Rate 15 07/25/2024 9:25 AM CDT Oxygen Saturation 90% 07/25/2024 9:25 AM CDT Inhaled Oxygen Concentration - - Weight 76 kg (167 lb 9.6 oz) 07/25/2024 9:25 AM CDT Height 177.8 cm (5' 10) 12/29/2022 10:27 AM CDT Body Mass Index 24.05 12/29/2022 10:27 AM CDT Plan of Treatment Upcoming Encounters Date Type Department Care Team (Late st Contact Info) Description 10/01/2024 9:30 AM CDT Office Visit [facility] Oncology and Hematology [place] [address] [place] [address] Shawn Burnham MD [address] [address] Health Maintenance Due Date Last Done Comments RSV VACCINE (60+ or ) (1 - [...] Associated Diagnosis Comments COMPREHENSIVE METABOLIC PANEL Routine 07/25/2024 12:48 PM CDT BASIC METABOLIC PANEL Routine 07/11/2024 4:22 PM CDT COMPREHENSIVE METABOLIC PANEL Routine 07/11/2024 11:[address] CHEST ABDOMEN PELVIS W CONT Routine 07/10/2024 9:32 AM CDT from Last 3 Months Results * COMPREHENSIVE METABOLIC PANEL (07/25/2024 12:48 PM CDT) Only the most recent of2 resultswithin the time period is included. Blood us Shawn Burnham MD CHEMISTRY ORDERABLES Final Resu lt * BASIC METABOLIC PANEL (07/11/2024 4:22 PM CDT) Blood us Shawn Burnham MD CHEMISTRY ORDERABLES Final Resu lt * CT CHEST ABDOMEN PELVIS W CONT (07/10/2024 9:32 AM CDT) Anatomical Region Laterality Modality Chest Computed Tomogra phy us Shawn Burnham MD CT ORDERABLES Final Result from Last 3 Months Additional Health Concerns Infection Onset Date Last Indicated R/O C. diff 10/23/2023 10/23/2023 Insurance MEDICARE PART A AND B [facility] SUPP MEDICARE PART A AND B [facility] SUPP Care Teams Construction Driver Relationship Specialty Start Date End Date Lucila Gomez MD [address] [place] [address] PCP - General Family Practice 12/14/22
--- OUTSIDE RECORDS SUMMARY | 2024-09-24 09:04 | XMS_ITS | Clinical Summary ---
Author Organization [facility] Address [address] [place] [address] Care Team Providers Care Abrasive Water Jet Cutter Operator Name Role Phone Lucila Gomez MD Unavailable Source Comments [facility],non-owned Affiliates and Associated Physician Practices is amultiple site organization consisting of ambulatory clinics and hospital sitesin [place], [place], [place] and [place]. This disclosure is being madepursuant to the Care Everywhere program and may not contain all information available regarding this patient. Last updated 17.[facility] [employer] Allergies No known active allergies Medications * Be aware that medications may not be up to date on this document. Alwaysverify current medications with the patient. piroxicam (FELDENE) 20 MG capsule Take 1 Cap by mouth daily. 90 Cap 6 0 Active etanercept (ENBREL) injection Inject 50 mg subcutaneously as directed. Active FOLIC ACID PO Take by mouth daily. Active Calcium-Vitami n D (CALCIUM 500 +D PO) Take by mouth daily. Active Windthorst-3 Fatty Acids (OMEGA 3 PO) Take by mouth. Activ e ibuprofen (MOTRIN) 200 MG tablet Take 200 mg by mouth as needed. Active Cholecalcifero l (D-3-5 PO) Take by mouth as directed. Active ALBUTEROL SULFATE PO Take by mouth as directed. Active diclofenac sodium (VOLTAREN) 75 MG tablet Take 1 Tab by mouth 2 times daily. 60 Tab 4 1 Active Active Problems Problem Noted Date Diagnosed Date Compression fracture 03/03/2010 Social History Tobacco Use Types Packs/Day Years Used Date Smoking Tobacco: Former Alcohol Use Standard Drinks/Week Comments No 0 (1 standard drink = 0.6 oz pur e alcohol) Sex and Gender Information Value Date Recorded Sex Assigned at Not on file Legal Sex Male 9:36 AM TIMBER PACKER Gender Identity Not on file Sexual Orientation Not on file Last Filed Vital Signs Vital Sign Reading Time Taken Comments Blood Pressure - - Pulse - - Temperature - - Respiratory Rate - - Oxygen Saturation - - Inhaled Oxygen Concentration - - Weight 83.9 kg (185 lb) 03/03/2010 11:05 AM TIMBER PACKER Height 182.9 cm (6') 03/03/2010 11:05 AM TIMBER PACKER Body Mass Index 25.09 03/03/2010 11:05 AM TIMBER PACKER Plan of Treatment Health Maintenance Due Date Last Done Comments MEDICARE AWV 12 MONTHS 1937 DTAP/TDAP/TD VACCINES (1 - Tdap) 1956 PNEUMOCOCCAL VACCINE 50+ (1 of 1 - PCV) 1987 ZOSTER VACCINE (1 of 2) 1987 Respiratory Syncytial Virus (RSV) Vaccine Pt: or over 60 yrs (1 - 1-dose 75+ series) 2012 COVID-19 VACCINE (2023-2 5 season) 2023 DEPRESSION SCREENING 04/10/2024 INFLUENZA VACCINE (Season Ended) 2024 HEPATITIS B VACCINE Aged Out No longe [...] on patient's age to complete this topic Insurance MEDICARE MEDICARE Care Teams Abrasive Water Jet Cutter Operator Relationship Specialty Start Date End Date Lucila Gomez MD [address] [place] [address] Family Medicine 03/03/10
--- OUTSIDE RECORDS SUMMARY | 2024-09-24 09:04 | XMS_ITS | Clinical Summary ---
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
[2024-09-24 09:11] LABS: Estimated Glomerular Filt Rate > 60
== END 2024-09-24 08:45 | disposition home or self-care (01) ==
LOC: ANHIMG 08:46
PROVIDERS: PCP Family Medicine; Visit Provider Internal Medicine Hematology & Oncology
DX: C34.90 Malignant neoplasm of unspecified part of unspecified bronchus or lung (principal); K80.20 Calculus of gallbladder without cholecystitis without obstruction; J43.9 Emphysema, unspecified
CPT/HCPCS: 71260; Q9967

== ENCOUNTER 2024-10-30 23:23 | Emergency (ER) | payer MEDICARE, SELFPAY ==
--- NOTE | ~2024-10-30 | XR_ITS ---
EXAMINATION: XR chest 1V portable DATE: 10/30/2024 23:43 INDICATION: Shortness of breath, lung cancer, COPD TECHNIQUE: frontal view of the chest was obtained. COMPARISON: Chest CT dated 09/24/2024 FINDINGS: There is a large left pneumothorax with partial collapse of the left lung. Portions of the left upper lobe. Remaining tethered to the periphery of the apex. There is [id number] midline shift of the h eart and mediastinum suspicious for tension pneumothorax although some degree of shift was present at the time of the prior CT preceding the pneumothorax. Small right pleural effusion but no right pneum othorax. Persistent airspace opacities in the right lower lung zone which could represent atelectasis /scarring or pneumonia. Arch size is normal. Left subclavian central venous port catheter with distal tip at the cephalad superior vena cava. Cerclage wire overlying the spinous processes near the cervi cothoracic junction. IMPRESSION: 1. 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 Dr. Rosales discussed these findings with Dr. Nichols at 11:55 PM on 10/30/2024. 2. Decreased right lung volume with persistent opacities in the right lower lung zone most likely rep resenting atelectasis/scarring due to radiation fibrosis although differential includes pneumonia. Reviewed, dictated and finalized at location A. IMPRESSION: 1. Large left pneumothorax with left to right sided midline shift which was to some degree present at the time of the prior CT likely secondary to radiation f ibrosis in the right lower lung however could not exclude developing tension pn eumothorax. Dr. Rosales discussed these findings with Dr. Nichols at 11:55 PM on 10/30/2024. 2. Decreased right lung volume with persistent opacities in the right lower pretty g zone most likely representing atelectasis/scarring due to radiation fibrosis although differential includes pneumonia.
--- NOTE | ~2024-10-30 | XR_ITS ---
XR chest-chest tube insert/pos 10/31/2024 00:27 Indication: Chest tube insertion Procedure: AP portable chest Comparison: 10/30/2024 Findings: Interval placement of left-sided chest tube which overlies the mediastinum. Significantly d ecreased size of left pneumothorax. There is moderate subcutaneous gas in the left axilla. Portacathe ter tip in the SVC. Mediastinal shift to the right. There is mixed diffuse interstitial and airspace disease bilaterally which may represent edema or pneumonia. Decreased right lung volume unchanged. Ri ght costophrenic recess is excluded. Possible small right effusion. Impression: 1: Significantly decreased size of left pneumothorax post chest tube insertion. Reviewed, dictated and finalized at location A. Impression: 1: Significantly decreased size of left pneumothorax post chest tube insertion.
[2024-10-30 23:23] VITALS: PULSE 92; RESP 30; TEMP 36.4; O2SAT 68
[2024-10-30 23:24] VITALS: PULSE 138; O2SAT 68
--- OUTSIDE RECORDS SUMMARY | 2024-10-30 23:25 | XMS_ITS | Clinical Summary ---
Author Organization [facility] Address [address] [place] [address] Care Team Providers Care Assessment Services Manager Name Role Phone Lucila Gomez MD Unavailable Source Comments [facility],non-owned Affiliates and Associated Physician Practices is amultiple site organization consisting of ambulatory clinics and hospital sitesin [place], [place], [place] and [place]. This disclosure is being madepursuant to the Care Everywhere program and may not contain all information available regarding this patient. Last updated 17.[facility] [employer] Allergies No known active allergies Medications * [...] +D PO) Take by mouth daily. Active Hemphill-3 Fatty Acids (OMEGA 3 PO) Take by [...] on file Legal Sex Male 9:36 AM DIAGNOSTICS TECH Gender Identity Not on file Sexual Orientation Not on file Last Filed Vital Signs Vital Sign Reading Time Taken Comments Blood Pressure - - Pulse - - Temperature - - Respiratory Rate - - Oxygen Saturation - - Inhaled Oxygen Concentration - - Weight 83.9 kg (185 lb) 03/03/2010 11:05 AM DIAGNOSTICS TECH Height 182.9 cm (6') 03/03/2010 11:05 AM DIAGNOSTICS TECH Body Mass Index 25.09 03/03/2010 11:05 AM DIAGNOSTICS TECH Plan of Treatment Health Maintenance Due Date Last Done Comments MEDICARE AWV 12 MONTHS 1937 DTAP/TDAP/TD VACCINES (1 - Tdap) 1956 PNEUMOCOCCAL VACCINE 50+ (1 of 1 - PCV) 1987 ZOSTER VACCINE (1 of 2) 1987 Respiratory Syncytial Virus (RSV) Vaccine Pt: or over 60 yrs (1 - 1-dose 75+ series) 2012 COVID-19 VACCINE ( - 2023-2 5 season) 2023 DEPRESSION SCREENING 04/10/2024 INFLUENZA VACCINE (#1) 2024 HEPATITIS B VACCINE Aged Out No [...] this topic Insurance MEDICARE MEDICARE Care Teams Assessment Services Manager Relationship Specialty Start Date End Date Lucila Gomez MD [address] [place] [address] Family Medicine 03/03/10
--- OUTSIDE RECORDS SUMMARY | 2024-10-30 23:25 | XMS_ITS | Clinical Summary ---
Author Organization [facility] Address [address] [place] [address] Care Team Providers Care Motorboat Operator Name Role Phone Lucila Gomez MD Primary Care Provider [phone] Allergies No known active allergies Medications albuterol [...] Encounters Date Type Department Care Team Description 10/28/2024 Orders Only [facility] Oncology and Hematology [facility] [address] [place] [phone] Shawn Burnham MD Small cell carcinoma of lung, unspecified laterality, unspecified part of lung ([facility]/HCC) 10/23/2024 External Device Data STL ABSTRACTION Provider, Abstract 10/22/2024 External Device Data STL ABSTRACTION Provider, Abstract 10/14/2024 Orders Only [facility] Oncology and Hematology [facility] [address] [place] [phone] Shawn Burnham MD Small cell carcinoma of lung, unspecified laterality, unspecified part of lung (CMS/HCC) 10/01/2024 9:30 AM CDT Office Visit [facility] Oncology and Hematology [facility] [address] [place] [phone] Shawn Burnham MD Small cell carcinoma of lung, unspecified laterality, unspecified part of lung (CMS/HCC) (Primary Dx) 10/01/2024 Orders Only [facility] Oncology and Hematology - [place] [address] Shawn Burnham MD 09/30/2024 Orders Only [facility] Oncology and Hematology - [place] [address] Shawn Burnham MD Small cell carcinoma of lung, unspecified laterality, unspecified part of lung (CMS/HCC) 09/25/2024 Orders Only [facility] Oncology and Hematology - [place] [address] Shawn Burnham MD 09/24/2024 External Device Data STL ABSTRACTION Provider, Abstract 09/16/2024 Orders Only [facility] Oncology and Hematology - [place] [address] [place] [phone] Shawn Burnham MD Small cell carcinoma of lung, unspecified laterality, unspecified part of lung ([facility]/HCC) 09/03/2024 External Device Data STL ABSTRACTION Provider, Abstract 09/02/2024 Orders Only [facility] Oncology and Hematology - [place] [address] [place] [phone] Shawn Burnham MD Small cell carcinoma of lung, unspecified laterality, unspecified part of lung ([facility]/HCC) 08/29/2024 External Device Data STL ABSTRACTION Provider, Abstract 08/28/2024 External Device Data ST[place] ABSTRACTION Provider, Abstract 08/27/2024 External Device Data ST[facility] ABSTRACTION Provider, Abstract 08/19/2024 Orders Only [facility] Oncology and Hematology - [place] [address] [place] [address] Shawn Burnham MD Small cell carcinoma of lung, unspecified laterality, unspecified part of lung (CMS/HCC) 08/05/2024 Orders Only [facility] Oncology and Hematology - [place] [address] [place] [id number] Shawn Burnham MD Small cell carcinoma of [...] Sign Reading Time Taken Comments Blood Pressure 111/69 10/01/2024 9:20 AM CDT Pulse 69 10/01/2024 9:20 AM CDT Temperature 36.1 C (97 F) 10/01/2024 9:20 AM CDT Respiratory Rate 15 10/01/2024 9:20 AM CDT Oxygen Saturation 90% 10/01/2024 9:20 AM CDT Inhaled Oxygen Concentration - - Weight 74.2 kg (163 lb 9.6 oz) 10/01/2024 9:20 A M CDT Height 177.8 cm (5' 10) 12/29/2022 10:27 AM CDT Body Mass Index 23.47 12/29/2022 10:27 AM CDT Plan of Treatment Upcoming Encounters Date Type Department Care Team (Late st Contact Info) Description 11/12/2024 9:00 AM CDT Office Visit [facility] Oncology and Hematology - [place] [address] [facility] [address] [place] [address] Shawn Burnham MD [address] [facility] [address] [place] [address] Health Maintenance Due Date Last Done Comments Traditional Medicare (ACO) A nnual Wellness Visit 1954 RSV VACCINE (60+ or ) (1 - 1-dose 75+ series) 2012 PNEUMOCOCCAL VACCINE 50+ YEA RS (2 of 2 - PPSV23, PCV20, or PCV21) 05/26/2015 03/31/2015, 09/06/2011 , 06/21/2002 COVID-19 Vaccine (2023-2 5 season) 2023 01/09/2023, 01/19/2022, 01/19/2021, Additional history exists INFLUENZA VACCINE (#1) 2024 , 01/09/2023, 01/19/2022, Additional history exists DTAP/TDAP/TD VACCINES (3 - T d or Tdap) 11/30/2025 12/01/2015, 04/10/2006 ZOSTER VACCINE Completed 05/25/2021, 03/24/2021 Procedures Procedure Name Priority Date/Time Associated Diagnosis Comments BASIC METABOLIC PANEL Routine 10/01/2024 12:49 PM CDT COMPREHENSIVE METABOLIC PANEL Routine 10/01/2024 12:[address] CHEST W CONTRAST Routine 09/24/2024 1 0:26 AM CDT from Last 3 Months Results * BASIC METABOLIC PANEL (10/01/2024 12:49 PM CDT) Blood us Shawn Burnham MD CHEMISTRY ORDERABLES Final Resu lt * COMPREHENSIVE METABOLIC PANEL (10/01/2024 12:44 PM CDT) Blood us Shawn Burnahm MD CHEMISTRY ORDERABLES Final Resu lt * CT CHEST W CONTRAST (09/24/2024 10:26 AM CDT) Anatomical Region Laterality Modality Chest Computed Tomogra phy us Shawn Burnham MD CT ORDERABLES Final Result from Last 3 Months Additional Health Concerns Infection Onset Date Last Indicated R/O C. diff 10/23/2023 10/23/2023 Insurance MEDICARE PART A AND B [facility] SUPP MEDICARE PART A AND B [facility] SUPP Care Teams Motorboat Operator Relationship Specialty Start Date End Date Lucila Gomez MD [address] [place] [phone] PCP - General Family Practice 12/14/22
--- OUTSIDE RECORDS SUMMARY | 2024-10-30 23:25 | XMS_ITS | Clinical Summary ---
Author Organization 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
--- OUTSIDE RECORDS SUMMARY | 2024-10-30 23:25 | XMS_ITS | Referral Summary ---
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
--- OUTSIDE RECORDS SUMMARY | 2024-10-30 23:25 | XMS_ITS | Clinical Summary ---
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
--- OUTSIDE RECORDS SUMMARY | 2024-10-30 23:25 | XMS_ITS | Encounter Summary ---
Author Organization [facility] Address [address] [place] [address] Care Team Providers Care Collection Systems Worker Name Role Phone Lucila Gomez MD Primary Care Provider [phone] Encounter Details Date Type Department Care Team (Late st Contact Info) Description 10/28/2024 Orders Only [facility] Oncology and Hematology - [place] [address] [place] [address] Shawn Burnham MD [address] [place] [address] Small cell carcinoma of lung, [...] Description 11/12/2024 9:00 AM CDT Office Visit [facility] Oncology and Hematology - [place] [address] [place] [address] Shawn Burnham MD [address] [place] [address] documented as of this encounter Visit Diagnoses Diagnosis Small cell carcinoma of lung, unspecified laterality, unspecified part of lung (CMS/HCC) documented in this encounter Additional Health Concerns Infection Onset Date Last Indicated Resolved Time R/O C. diff 10/23/2023 10/23/2023 documented as of this encounter Care Teams Collection Systems Worker Relationship Specialty Start Date End Date Lucila Gomez MD [address] [place] [id number] PCP - General Family Practice 12/14/22 documented as of this encounter
--- NOTE | 2024-10-30 23:27 | ED_ITS ---
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 patient was noted to have oxygen saturation in the 70s. The patient was placed on 100% FiO2. Oxygen saturations appear to be in the mid 80s. -- substernal chest pain. No radiation of the pain. --cough no fever or chills MD elicited complaint: shortness of breath, cough and chest pain Pertinent past history: COPD, DVT and other ( Right lung cancer, right-sided radiation pneumonitis with emphysema) Onset (ago): hour(s) ( 8 hours) Timing: constant Severity: severe Relieving factors: nothing Known history of: COPD Associated symptoms: chest pain Treatment prior to arrival: none Related Data Home oxygen amount: none Home Medications ?Medication ?Instructions ?Recorded ?Confirmed ?Last Taken ?Type albuterol sulfate 90 mcg/actuation 2 inhalation inhalation Q6H PRN 12/11/19 09/27/24 Unknown History breath activated powder inhaler Shortness Of Breath Or Wheezing acetaminophen 650 mg 650 mg PO BID PRN Pain 11/29/22 09/27/24 Unknown History tablet,extended release pravastatin 10 mg tablet 5 mg PO DAILY 11/29/22 09/27/24 Unknown History diclofenac sodium 1 % topical gel 2 g topical QID 03/14/23 09/27/24 Unknown History cyanocobalamin (vitamin B-12) 1,000 mcg PO DAILY 10/09/23 09/27/24 Unknown History 1,000 mcg tablet (Vitamin B-12) ferrous sulfate 325 mg (65 mg 325 mg PO DAILY 10/09/23 09/27/24 Unknown History iron) tablet (iron) etanercept 25 mg (1 mL) 25 mg subcut WEEKLY 02/08/24 09/27/24 Unknown History subcutaneous powder for solution pantoprazole 20 mg tablet,delayed 20 mg PO QAM 07/29/24 09/27/24 Unknown History release Allergies Allergy/AdvReac Type Severity Reaction Status Date / Time No Known Allergies Allergy Verified 10/31/24 00:58 Review of Systems 2 Review of Systems: All systems reviewed & are unremarkable except as noted in HPI and below Constitutional: Constitutional: Reports as per HPI, Reports no additional constitutional complaints and Reports weakness Eyes: Eyes: Reports as per HPI and Reports no additional eye complaints ENT: Reports system reviewed and no additional complaints, except as documented and Reports as per HPI Cardiovascular: Cardiovascular: Reports as per HPI and Reports no additional cardiovascular complaints Respiratory: Respiratory: Reports as per HPI, Reports no additional respiratory complaints, Reports cough and Reports dyspnea Gastrointestinal: Gastrointestinal: Reports as per HPI and Reports no additional gastrointestinal complaints Genitourinary: Genitourinary: Reports no additional male genitourinary complaints and Reports as per HPI Musculoskeletal: Musculoskeletal: Reports no additional musculoskeletal complaints and Reports as per HPI Integumentary/Breasts: Skin/Breast: Reports system reviewed and no additional complaints, except as docu and Reports as per HPI Neurologic: Reports system reviewed and no additional complaints, except as documented and Reports as per HPI Psychiatric: Psychiatric: Reports no additional psychiatric complaints and Reports as per HPI Endocrine: Endocrine: Reports no additional endocrine complaints and Reports as per HPI Hematologic/Lymphatic: Hematologic/Lymphatic: Reports no additional hematologic/lymphatic complaints and Reports as per HPI Allergic/Immunologic: Allergic/Immunologic: Reports no additional allergic/immunologic complaints and Reports as per HPI PMFSH Past Medical History Medical History DVT (deep venous thrombosis) Encounter for immunization Weakness of right hip History of tobacco abuse Osteopenia SCC (squamous cell carcinoma), scalp/neck Rheumatoid arthritis JANIS (obstructive sleep apnea) COPD (chronic obstructive pulmonary disease) Surgical History Surgical History History of ear surgery Family History Family History Sibling Family history of arthritis Acute myocardial infarction Family history of lung cancer Father Family history of malignant neoplasm Family history of pancreatic cancer Mother Family history of malignant neoplasm of cervix Acute myocardial infarction Social History Social History Smoking packs per day: 3 Smoking cigarettes per day: 60.0 Years smoked: 25 Smoking pack-years: 75.00 Smoking status: Former smoker Tobacco type: cigarettes Second hand tobacco smoke exposure: No Smoking end date: 04/10/88 Alcohol intake: never Substance use: never Substance use type: does not use Lack of Transportation: No Lack of Food: Never True Current Housing: I Have Housing Concerned About Future Housing: No Difficulty Paying Gas/Electric Bills: No Difficulty Paying for Meds: No Currently Unemployed: No Education: High School Diploma/GED Difficulty w/ Childcare or Family Care: No Living arrangements: with family Occupation/Education: retired Gender identity (if verbalized by the patient): Male Sexual Orientation (if Verbalized by the Patient): Straight or Heterosexual Spiritual care concerns: No Agree to blood products: Yes Exam 2 Narrative: hypoxic with oxygen saturation of 88% on 100% FiO2. Const: General: ill appearing Nutritional Appearance: thin O rientation/consciousness: patient oriented x3 HENMT: Head: normal to inspection Ears: external ears normal F jose/Nose/Sinus: Normal external nose present Face and sinus: normal facial exam Mouth: Yes Normal oral and palatal mucosa present Throat: posterior oropharynx normal Eyes: Conjunctivae: conjunctivae normal Pupils: Equal, round and reactive pupils present EOM: EOMs intact bilaterally Direct Ophthalmoscopy: no photophobia Neck: Neck: normal visual inspection, no lymphadenopathy and no meningeal signs Chest: Chest palpation & inspection: normal inspection of the chest Resp: Effort & Inspection: labored, tachypneic and uses accessory muscles O ther: Coarse crackles on right base. Decreased breath sounds on the left side. Cardio: Rate: tachycardic Rhythm: regular rhythm GI: GI Palp: Yes Soft to palpation Auscultation: normal bowel sounds O ther: No tenderness/rigidity /rebound : General: Yes no CVA tenderness Back/Spine/Pelvis: Back: no CVA tenderness Skin: General skin exam: normal color Rashes: no rashes Wounds: no wounds Neuro: General: patient oriented x3, moves all extremities, no meningeal signs, no focal motor deficits and CN's II-XI intact bilaterally Cranial nerves: Yes Nystagmus not present Speech: normal speech Extrem: General: normal to inspection and edema Psych: Mental Status: mental status grossly normal Affect: normal affect Course Course Emergency Course: severe shortness of breath/ hypoxia-- chest x-ray revealed left pneumothorax with mediastinal shift. tension pneumothorax. Right lower lobe fibrotic changes. acute hypoxic respiratory failure with an ABG of 734/37/58/86% on 100% FiO2. Will place chest tube. Right lower lobe lung infiltrates-- blood culture and started Zosyn and Vancomycin Positive D-dimer-- patient had a negative for PE per CTA of the chest on 09/23/2024. 0015-- left chest tube placed. Resolution of left pneumothorax. Significant improvement Hypoxic respiratory failure. 0045-- Current oxygenation is 94% on 2 L of O2. resolution of respiratory Distress. 0130-- Patient is oxygenating well with an oxygen saturation of 95% on 2 L of O2. Vital Signs Vital signs: Vital Signs Temperature 36.4 C 10/30/24 23:23 Pulse Rate 92 10/30/24 23:23 Respiratory Rate 30 H 10/30/24 23:23 Pulse Oximetry 68 L 10/30/24 23:23 Oxygen Delivery Room Air 10/30/24 23:23 Temperature 36.4 C 10/30/24 23:23 Pulse Rate 97 10/31/24 01:46 Respiratory Rate 25 H 10/31/24 01:46 Blood Pressure 133/79 10/31/24 01:46 Pulse Oximetry 96 10/31/24 01:46 Oxygen Delivery Nasal Cannula 10/31/24 01:46 Oxygen Flow Rate 2 10/31/24 01:46 Procedures Chest Tube Chest Tube 1: Chest Tube Date: 10/31/24 Chest Tube Time: 00:15 Chest Tube Location: left and anterior axillary line Tube Type: cook cath Size of Tube (cm): 16 Chest Tube Prep: Yes sterile drapes applied and other Anesthetic: lidocaine 1% Amount of anesthesia used (mL): 10 Incision Made With: #11 blade Procedure: seldinger technique Tube Drainage: sheehan of air Amount of initial drainage (mL): 0 Post Procedure CXR?: Yes Post Procedure: post CXR reviewed Patient Tolerated Procedure: Yes Progress: evacuation of left pneumothorax and resolution of the tension pneumothorax after placement of the chest tube. Small pneumothorax at left base. MDM - SOB/Dyspnea MDM Narrative Medical decision making narrative: left pneumothorax tension pneumothorax right lower lobe lung infiltrates positive D-dimer Differential Diagnosis Differential diagnosis: Likely acute exacerbation of chronic obstructive airways disease and congestive heart failure Medical Records Attestation: I reviewed the patient's medical records. Lab Data Attestation: I reviewed the patient's lab results. 10/30/24 23:52 10/30/24 23:52 Labs: Lab Results 10/30/24 10/30/24 10/30/24 Range/Units 23:45 23:51 23:52 WBC 10.7 (4.8-10.8) K/mm3 RBC 4.64 L (4.70-6.10) M/mm3 Hgb 13.5 (12.4-15.3) g/dL Hct 41.7 (37.0-46.0) % MCV 89.9 (78.0-102.0) fL MCH 29.1 (27.0-31.0) pg MCHC 32.4 (32-36) g/dL RDW 14.8 H (11.6-14.4) % Plt Count 152 (150-420) K/mm3 MPV 8.8 (8.7-11.0) fl Immature Gran % (Auto) 0.7 H (0.0-0.0) % Neut % (Auto) 69.7 (50.0-70.0) % Lymph % (Auto) 21.3 (18.0-42.0) % [place] % (Auto) 6.6 (2.0-11.0) % Eos % (Auto) 1.4 (1.0-6.0) % Baso % (Auto) 0.3 (0.0-1.0) % Lymph # (Auto) 2.28 (1.10-4.50) K/mm3 [place] # (Auto) 0.71 (0.10-0.90) K/mm3 Eos # (Auto) 0.15 (0.02-0.50) K/mm3 Baso # (Auto) 0.03 (0.00-0.10) K/mm3 Abs Immat Gran (auto) 0.07 H (0.00-0.00) K/mm3 Absolute Neuts (auto) 7.44 H (1.70-7.20) K/mm3 Absolute Nucleated RBC 0.00 (0.00-0.00) K/mm3 Nucleated RBC % 0.0 (0-0.0) % PT 10.7 (9.50-12.1) Seconds INR 1.0 APTT 22.0 L (23.9-30.70) Sec D-Dimer 9.34 H (0.19-0.50) mg/L Sodium 137 (137-145) mmol/L Potassium 4.3 (3.4-5.0) mmol/L Chloride 105 (98-107) mmol/L Carbon Dioxide 21 L (22-30) mmol/L Anion Gap 11 (4-12) mmol/L BUN 28 H (9-20) mg/dL Creatinine 0.98 (0.7-1.3) mg/dL Estim Creat Clear Calc Not Reportable Estimated GFR > 60 (59 - ) Glucose 164 H (65-110) mg/dL Calculated Osmolality 293 (285-295) mOsm/kg Lactic Acid 2.7 H (0.4-2.0) mmol/L Uric Acid 7.3 (3.5-8.5) mg/dL Calcium 9.0 (8.4-10.2) mg/dL Total Bilirubin 0.6 (0.2-1.3) mg/dL AST 34 (17-59) U/L ALT 21 (6-50) U/L Alkaline Phosphatase 71 (38-126) U/L Troponin I < 0.012 (0.000-0.034) ng/mL NT-Pro-B Natriuret Pep 335 H (19.9-100) pg/mL Total Protein 8.0 (6.3-8.2) g/dL Albumin 4.3 (3.5-5.1) g/dL Lipase 67 (23-300) U/L Procalcitonin 0.1 ng/mL Influenza A (RT-PCR) Negative (Negative) Influenza B (RT-PCR) Negative (Negative) RSV (RT-PCR) Negative (Negative) SARS-CoV-2 RNA (RT-PCR) Negative (Negative) ABG Data ABG results: 10/30/24 23:50 Puncture Site Left radial ABG pH 7.34 L ABG pCO2 37.1 ABG pO2 58.4 L ABG HCO3 19.7 L ABG O2 Saturation 87.0 L ABG Base Excess -5.4 L Oxyhemoglobin 86.3 L O2 Delivery Device Non-rebreather mask O2 Liters/Min 15.0 ECG Data EKG #1: ECG completion date: 10/30/24 ECG completion time: 23:31 Interpretation: Sinus tachycardia rate 0 8. Normal axis. Right bundle-branch block pattern. No ST elevation. Critical Care Time Critical Care Time Critical Care Time: Yes Total Critical Care Time: 45 Discharge Plan Discharge Clinical Impression: Acute hypoxemic respiratory failure, Tension pneumothorax, Positive D dimer Pneumonia Qualifiers: Pneumonia type: due to unspecified organism Laterality: right Lung location: l ower lobe of lung Qualified Code(s): J18.9 - Pneumonia, unspecified organism Patient Disposition: Still a Patient Condition: Stable Instructions: Antibiotic Form Additional Instructions: Patient has been accepted by Dr. Hsieh at [facility] in [place]. Patient Language: Kyrgyz Prescriptions: No Action diclofenac sodium 1 % Gel 2 g TOPICAL QID Patient Comments: . Rx Instructions: apply to single elbow, wrist or hand; for hand includes palm/fingers/back of hand cyanocobalamin (vitamin B-12) [Vitamin B-12] 1,000 mcg Tablet 1,000 mcg PO DAILY Patient Comments: . ferrous sulfate [iron] 325 mg (65 mg iron) Tablet 325 mg PO DAILY Enbrel 25 mg (1 mL) Recon Soln 25 mg SUBCUT WEEKLY Patient Comments: . albuterol sulfate 90 mcg/actuation aerosol powdr breath activated 2 inhalation INHALATION Q6H PRN (Reason: Shortness Of Breath Or Wheezing) Patient Comments: . pantoprazole 20 mg tablet,delayed release (DR/EC) [facility] 160-9-4.8 mcg/actuation HFA aerosol inhaler 2 inh inhalation BID Qty: 10.7 0RF Patient Comments: . pravastatin 10 mg Tablet 5 mg PO DAILY acetaminophen 650 mg Tablet Extended Release 650 mg PO BID PRN (Reason: Pain) Patient Comments: .. loperamide 2 mg capsule 2 mg PO Q6H PRN (Reason: loose stool) Qty: 8 0RF Follow-up/Referrals: Adán,Anibal Heredia MD [Primary Care Provider] - Time of Disposition: 02:01
[2024-10-30] MEDS: IPRATROPIUM 0.5 MG/ALBUTEROL SULFATE 2.5 MG AMPUL.NEB 3 ML INHALATION (23:30)
--- NOTE | 2024-10-30 23:30 | ECG_ITS ---
Test Date: 2024-10-30 23:31:51 Measurements Intervals [place] Rate: 108 P: 71 [place]: 200 QRS: 81 QRSD: 114 T: 70 QT: 336 QTc: 452 Interpretive Statements SINUS TACHYCARDIA WITH OCCASIONAL VENTRICULAR PREMATURE COMPLEXES INCOMPLETE RIGHT BUNDLE BRANCH BLOCK [120+ ms QRS DURATION, UPRIGHT V1, 40+ ms S IN I/aVL/V4/V5/V6] No previous ECG available for comparison Electronically Signed On 11-01-2024 15:39:57 CDT by Foster Barney M.D.
[2024-10-30 23:38] VITALS: PULSE 112; RESP 25; O2SAT 82
[2024-10-30 23:45] VITALS: PULSE 109; RESP 36; O2SAT 88
[2024-10-30 23:57] LABS: HCO3 ABG 19.7 mmol/L (23-29); Liters per Minute 15.0 LPM; Modified Allen's Test Pass; Oxygen Saturation ABG 87.0 % (95-97); PCO2 ABG 37.1 mmHg (35-45); PO2 ABG 58.4 mmHg (75-85); Site Drawn LEFT RADIAL
[2024-10-30 23:59] LABS: Hematocrit 41.7 % (37.0-46.0); Hemoglobin 13.5 g/dL (12.4-15.3); Immature Granulocyte Percent A 0.7 % (0.0-0.0); Lymphocytes Absolute Auto 2.28 K/mm3 (1.10-4.50); Mean Corpuscular HGB Conc 32.4 g/dL (32-36); Mean Corpuscular Hemoglobin 29.1 pg (27.0-31.0); Mean Corpuscular Volume 89.9 fL (78.0-102.0); Nucleated Red Blood Cells Absolute Auto 0.00 K/mm3 (0.00-0.00); Nucleated Red Blood Cells Perc 0.0 % (0-0.0); Platelet Count Result 152 K/mm3 (150-420); Red Blood Count 4.64 M/mm3 (4.70-6.10); White Blood Count 10.7 K/mm3 (4.8-10.8)
[2024-10-31] VITALS (22 sets, daily range): BP systolic 119–151; BP diastolic 68–98; PULSE 94–109; RESP 18–29; TEMP 37.4; O2SAT 87–100
[2024-10-31] MEDS: fentaNYL CITRATE INJ (*CRX) 100 MCG/2 ML VIAL 50 MCG IV PUSH (00:06)
[2024-10-31] MEDS: ONDANSETRON INJ 4 MG/2 ML VIAL IV PUSH (00:07)
[2024-10-31 00:10] LABS: Alanine Aminotransferase 21 U/L (6-50); Albumin Level 4.3 g/dL (3.5-5.1); Alkaline Phosphatase 71 U/L (38-126); Anion Gap 11 mmol/L (4-12); Aspartate Amino Transferase 34 U/L (17-59); Bilirubin,Total 0.6 mg/dL (0.2-1.3); Blood Urea Nitrogen 28 mg/dL (9-20); Calcium 9.0 mg/dL (8.4-10.2); Carbon Dioxide 21 mmol/L (22-30); Chloride 105 mmol/L (98-107); Estimated Glomerular Filt Rate > 60; Glucose 164 mg/dL (65-110); Lipase 67 U/L (23-300); Osmolality Calculated 293 mOsm/kg (285-295); Potassium 4.3 mmol/L (3.4-5.0); Sodium 137 mmol/L (137-145); Total Protein 8.0 g/dL (6.3-8.2)
[2024-10-31] MEDS: LIDOCAINE 1% LOCAL INJ 10 ML VIAL INFILTRATE (00:10)
[2024-10-31 00:20] LABS: INR 1.0; Partial Thromboplastin Time 22.0 Sec (23.9-30.70); Prothrombin Time 10.7 Seconds (9.50-12.1)
[2024-10-31 00:22] LABS: NT Pro B Type Natriuretic Pept 335 pg/mL (19.9-100); Troponin I < 0.012 ng/mL (0.000-0.034)
[2024-10-31 00:28] LABS: Uric Acid 7.3 mg/dL (3.5-8.5)
[2024-10-31 00:42] LABS: Influenza A QL RT-PCR Negative (Negative); Influenza B QL RT-PCR Negative (Negative); RSV RNA, RT-PCR Negative (Negative); SARS-CoV-2 RNA PCR Negative (Negative)
[2024-10-31 00:52] LABS: Procalcitonin 0.1 ng/mL
[2024-10-31] MEDS: PIPERACILLIN/TAZOBACTAM SOD 3.375 GM in SODIUM CHLORIDE 0.9% IV 50 ML 100 ML IVPB (01:26)
--- OUTSIDE RECORDS SUMMARY | 2024-10-31 01:40 | XMS_ITS | Encounter Summary ---
Author Organization [facility] [address] Address [address] [place] [address] Care Team Providers Care Process Improvement Manager Name Role Phone Lucila Gomez MD Primary Care Provider [phone] Encounter Details Date Type Department Care Team (Late st Contact Info) Description 10/28/2024 Orders Only [facility]3] Oncology and Hematology - [place] [address] [place] [address] Shawn Burnham MD [address] [place] [address] Small cell carcinoma of lung, [...] Description 11/12/2024 9:00 AM CDT Office Visit [facility]3] Oncology and Hematology - [place] [address] [place] [address] Shawn Burnham MD [address] [place] [address] documented as of this encounter Visit Diagnoses Diagnosis Small cell carcinoma of lung, unspecified laterality, unspecified part of lung (CMS/HCC) documented in this encounter Additional Health Concerns Infection Onset Date Last Indicated Resolved Time R/O C. diff 10/23/2023 10/23/2023 documented as of this encounter Care Teams Process Improvement Manager Relationship Specialty Start Date End Date Lucila Gomez MD [address] [place] [id number] PCP - General Family Practice 12/14/22 documented as of this encounter
--- OUTSIDE RECORDS SUMMARY | 2024-10-31 01:40 | XMS_ITS | Referral Summary ---
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
--- OUTSIDE RECORDS SUMMARY | 2024-10-31 01:40 | XMS_ITS | Clinical Summary ---
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
--- OUTSIDE RECORDS SUMMARY | 2024-10-31 01:40 | XMS_ITS | Clinical Summary ---
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
--- OUTSIDE RECORDS SUMMARY | 2024-10-31 01:40 | XMS_ITS | Clinical Summary ---
Author Organization [facility] Nuno Hyde Address [address] [place] [address] Care Team Providers Care Home Visitor Name Role Phone Lucila Gomez MD Primary Care Provider [phone] Allergies No known active allergies Medications albuterol [...] Department Care Team Description 10/28/2024 Orders Only [facility] Oncology and Hematology [facility] [address] [place] [id number] Shawn Burnham MD Small cell carcinoma of lung, unspecified laterality, unspecified part of lung ([facility]/HCC) 10/23/2024 External Device Data STL ABSTRACTION Provider, Abstract 10/22/2024 External Device Data STL ABSTRACTION Provider, Abstract 10/14/2024 Orders Only [facility] Oncology and Hematology [facility] [address] [place] [phone] Shawn Burnham MD Small cell carcinoma of lung, unspecified laterality, unspecified part of lung (CMS/HCC) 10/01/2024 9:30 AM CDT Office Visit [facility] Oncology and Hematology [facility] [address] [place] [phone] Shawn Burnham MD Small cell carcinoma of lung, unspecified laterality, unspecified part of lung (CMS/HCC) (Primary Dx) 10/01/2024 Orders Only [facility] Oncology and Hematology - [place] [address] Shawn Burnham MD 09/30/2024 Orders Only [facility] Oncology and Hematology - [place] [address] Shawn Burnham MD Small cell carcinoma of lung, unspecified laterality, unspecified part of lung (CMS/HCC) 09/25/2024 Orders Only [facility] Oncology and Hematology - [place] [address] Shawn Burnham MD 09/24/2024 External Device Data STL ABSTRACTION Provider, Abstract 09/16/2024 Orders Only [facility] Oncology and Hematology - [place] [address] [place] [phone] Shawn Burnham MD Small cell carcinoma of lung, unspecified laterality, unspecified part of lung ([facility]/HCC) 09/03/2024 External Device Data STL ABSTRACTION Provider, Abstract 09/02/2024 Orders Only [facility] Oncology and Hematology - [place] [address] [place] [phone] Shawn Burnham MD Small cell carcinoma of lung, unspecified laterality, unspecified part of lung ([facility]/HCC) 08/29/2024 External Device Data STL ABSTRACTION Provider, Abstract 08/28/2024 External Device Data ST[facility] ABSTRACTION Provider, Abstract 08/27/2024 External Device Data [facility]L ABSTRACTION Provider, Abstract 08/19/2024 Orders Only [facility] Oncology and Hematology - [place] [address] [place] [address] Shawn Burnham MD Small cell carcinoma of lung, unspecified laterality, unspecified part of lung (CMS/HCC) 08/05/2024 Orders Only [facility] Oncology and Hematology - [place] [address] [place] [id number] Shawn Burnham MD Small cell carcinoma of [...] Description 11/12/2024 9:00 AM CDT Office Visit [facility] - [place] [address] [facility] [address] [place] [address] Shawn Burnham MD [address] [facility] [address] [place] [address] Health Maintenance Due Date Last [...] (10/01/2024 12:44 PM CDT) Blood us Shawn Burnham MD CHEMISTRY ORDERABLES Final Resu lt * CT CHEST W CONTRAST (09/24/2024 10:26 AM CDT) Anatomical Region Laterality Modality Chest Computed Tomogra phy us Shawn Burnham MD CT ORDERABLES Final Result from Last 3 Months Additional Health Concerns Infection Onset Date Last Indicated R/O C. diff 10/23/2023 10/23/2023 Insurance MEDICARE PART A AND B [facility] SU[facility] MEDICARE PART A AND B [facility] Care Teams Home Visitor Relationship Specialty Start Date End Date Lucila Gomez MD [address] [place] [address] PCP - General Family Practice 12/14/22
--- OUTSIDE RECORDS SUMMARY | 2024-10-31 01:40 | XMS_ITS | Clinical Summary ---
Author Organization [facility] Address [address] [place] [address] Care Team Providers Care Ditch Digger Name Role Phone Lucila Gomez MD Unavailable Source Comments [facility],non-owned Affiliates and Associated Physician Practices is amultiple site organization consisting of ambulatory clinics and hospital sitesin [place], [place], [place] and [place]. This disclosure is being madepursuant to the Care Everywhere program and may not contain all information available regarding this patient. Last updated 17.[facility] [employer] Allergies No known active allergies Medications * [...] +D PO) Take by mouth daily. 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 Gender Identity Not on file Sexual Orientation Not on file Last Filed Vital Signs Vital Sign Reading Time Taken Comments Blood Pressure - - Pulse - - Temperature - - Respiratory Rate - - Oxygen Saturation - - Inhaled Oxygen Concentration - - Weight 83.9 kg (185 lb) 03/03/2010 11:05 AM PRODUCT DEVELOPMENT DIRECTOR Height 182.9 cm (6') 03/03/2010 11:05 AM PRODUCT DEVELOPMENT DIRECTOR Body Mass Index 25.09 03/03/2010 11:05 AM PRODUCT DEVELOPMENT DIRECTOR Plan of Treatment Health Maintenance Due Date [...] this topic Insurance MEDICARE MEDICARE Care Teams Ditch Digger Relationship Specialty Start Date End Date Lucila Gomez MD [address] [place] [address] Family Medicine 03/03/10
[2024-10-31] MEDS: VANCOMYCIN 1,750 MG/NS 500 ML 1,750 MG/500 ML BAG 250 MG IVPB (02:11)
[2024-10-31] MEDS: HYDROcodone/acetaminophen (*CRX) 10-325 MG TABLET 1 TAB PO (02:34)
--- NOTE | 2024-10-31 03:30 | PC.NURSE ---
Called Toma Hardwood Floor Finisher, [facility] and let he know that pt got a bed at [facility] and that he could be taken off of their waitlist.
[2024-10-31 03:33] LABS: MRSA (PCR) NOT DETECTED (NOT DETECTE)
--- NOTE | 2024-11-03 12:32 | PC.NURSE ---
preliminary urine culture reviewed. no growth in 24 hours
--- NOTE | 2024-11-03 12:33 | PC.NURSE ---
preliminary blood culture x1 reviewed. no growth in 24 hours.
--- NOTE | 2024-11-04 12:56 | PC.NURSE ---
PRELIMINARY BLOOD CULTURE REPORT; NO GROWTH IN 48 HOURS.
--- NOTE | 2024-11-07 14:52 | PC.NURSE ---
final blood cultures x2 reviewed. no growth after 5 days
== END 2024-10-31 03:15 | disposition short-term general hospital (02) ==
PROVIDERS: Emergency Provider Internal Medicine Critical Care Medicine; PCP Internal Medicine
DX: J96.01 Acute respiratory failure with hypoxia (principal); J93.0 Spontaneous tension pneumothorax; J18.9 Pneumonia, unspecified organism; J44.0 Chronic obstructive pulmonary disease with (acute) lower respiratory infection; C34.91 Malignant neoplasm of unspecified part of right bronchus or lung; R79.1 Abnormal coagulation profile; M06.9 Rheumatoid arthritis, unspecified; Z87.891 Personal history of nicotine dependence; Z66 Do not resuscitate; G47.33 Obstructive sleep apnea (adult) (pediatric); Z86.718 Personal history of other venous thrombosis and embolism; Z20.822 Contact with and (suspected) exposure to COVID-19
CPT/HCPCS: 32551; 36415; 36600; 71045; 80053; 82805; 83605; 83690; 83880; 84145; 84484; 84550; 85025; 85380; 85610; 85730; 87637; 87641; 93005; 96365; 96366; 96367; 96375; 99291; A9270; J2003; J2405; J2543; J2919; J3010; J3373

== ENCOUNTER 2024-11-20 08:14 | Outpatient (CLI) | payer MEDICARE, SELFPAY ==
--- NOTE | ~2024-11-20 | XR_ITS ---
XR chest 2V 11/20/2024 08:29 Indication: Respiratory distress Procedure: 2 view chest Comparison: Comparison to multiple prior studies sequentially, with oldest reviewed study dated 09/20. Findings: Portacatheter tip in SVC. There is chronic right pleural thickening. There is chronic inter stitial fibrosis. Consolidation right lower lobe appears chronic, although superimposed atypical pneu monia not excluded. There is subcutaneous gas along the left chest wall laterally. No pneumothorax. Impression: 1: Stable chronic interstitial fibrosis and right pleural effusion/pleural thickening. 2: Subcutaneous emphysema left lateral chest wall. 3: Right lower lobe airspace consolidation, most likely chronic, although superimposed pneumonia not excluded. Reviewed, dictated and finalized at location A. Impression: 1: Stable chronic interstitial fibrosis and right pleural effusion/pleural thic kening. 2: Subcutaneous emphysema left lateral chest wall. 3: Right lower lobe airspace consolidation, most likely chronic, although super imposed pneumonia not excluded.
--- OUTSIDE RECORDS SUMMARY | 2024-11-20 08:19 | XMS_ITS | Clinical Summary ---
Author Organization [facility] Address [address] [place] [address] Care Team Providers Care Filter Pulp Washer Name Role Phone No, Physician Primary Care Provider [phone] Allergies No known active allergies Medications etanercept (ENBREL) 25 mg (1 mL) injection Inject 2 mL (50 mg total) under the skin as directed Active budesonide-glyc opyr-formoterol (Breztri Aerosphere) 160-9-4.8 mcg/actuation HFA aerosol inhaler Inhale Active Active Problems No known active problems Encounters Date Type Department Care Team Description 10/31/2024 Orders Only [facility] [address] [address] Anibal Mccain MD from Last 3 Months Social History Tobacco Use Types Packs/Day Years Used Date Smoking Tobacco: Never Assessed Personal Safety Answer Date Recorded Have you ever been in or are you currently in a harmful physical or emotional relationship or is someone making you feel afraid or unsafe? 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 Gender Identity Not on file Sexual Orientation [...] 2023 01/19/2022, 06/05/2020, 05/08/2020 Influenza Vaccine (#1) 2024 , 01/12/2021, 01/24/2020, Additional history exists DTaP/Tdap/Td Vaccine (2 - Td or Tdap) 11/30/2025 12/01/2015 Procedures Procedure Name Priority Date/Time Associated Diagnosis Comments SCAN - LABS 10/31/2024 9:12 AM CDT SCAN - LABS 10/31/2024 7:55 AM CDT SCAN - RADIOLOGY/IMAGING 10/31/2024 7:28 AM CDT SCAN - RADIOLOGY/IMAGING 10/31/2024 7:28 AM CDT from Last 3 Months Results * SCAN - LABS (10/31/2024 9:12 AM CDT) us Anibal Mccain MD Final Result * SCAN - LABS (10/31/2024 7:55 AM CDT) us Anibal Mccain MD Final Result * SCAN - RADIOLOGY/IMAGING (10/31/2024 7:28 AM CDT) Anatomical Region Laterality Modality Other us Anibal Mccain MD Final Result * SCAN - RADIOLOGY/IMAGING (10/31/2024 7:28 AM CDT) Anatomical Region Laterality Modality Other Anibal Mccain MD Final Result from Last 3 Months Insurance MEDICARE [place] [facility] MEDICARE [facility] MEDICARE [facility] Care Teams Filter Pulp Washer Relationship Specialty Start Date End Date No, Physician PCP - General 11/18/22
--- OUTSIDE RECORDS SUMMARY | 2024-11-20 08:19 | XMS_ITS | Encounter Summary ---
Author Organization [facility] Address [address] [place] [address] Care Team Providers Care Tire Retreader Name Role Phone Lucila Gomez MD Primary Care Provider [phone] Encounter Details Date Type Department Care Team (Late Contact Info) Description 11/19/2024 Orders Only [facility] Oncology and Hematology [facility] [address] [place] [address] [place] [address] [place] [address] [address] [place] [phone] Social History Tobacco Use Types Packs/Day Years [...] Care Team (Late st Contact Info) Description 01/20/2025 9:15 AM CDT Office Visit [facility] Oncology and Hematology [facility] [address] [place] [address] Shawn Burnham MD [address] [employer] [address] [place] [phone] documented as of this encounter Procedures Procedure Name Priority Date/Time Associated Diagnosis Comments BASIC METABOLIC PANEL Routine 11/18/2024 12:17 PM CDT COMPREHENSIVE METABOLIC PANEL Routine 11/18/2024 11:35 AM CDT documented in this encounter Results * BASIC METABOLIC PANEL (11/18/2024 12:17 PM CDT) Blood us Shawn Burnham MD CHEMISTRY ORDERABLES Final Resu lt * COMPREHENSIVE METABOLIC PANEL (11/18/2024 11:35 AM CDT) Blood us Shawn Burnham MD CHEMISTRY ORDERABLES Final Resu lt documented in this encounter Visit Diagnoses Not on filedocumented in this encounter Care Teams Tire Retreader Relationship Specialty Start Date End Date Lucila Gomez MD [address] [place] [phone] PCP - General Family Practice 12/14/22 documented as of this encounter
--- OUTSIDE RECORDS SUMMARY | 2024-11-20 08:19 | XMS_ITS ---
Author Organization [facility] Nuno cr [facility] Address [address] [place] [address] Care Team Providers Care Railway Switchman Name Role Phone Lucila Gomez MD Primary Care Provider [phone] Active Problems Problem Noted Date Diagnosed Date Protein-calorie malnutrition, moderate Tension pneumothorax 10/31/2024 COPD (chronic obstructive pulmonary disease) Hyperlipidemia 10/31/2024 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 Gastroesophageal reflux dise ase with esophagitis without hemorrhage 10/31/2024 Current Treatment and Therapy Plans No current plan information found. Past Treatment and Therapy Plans No past plan information found. Lifetime Dose Tracking * Chemical Lifetime Dose Automatic Entry Manual Entr y Effective Dose 10.69 mSv 10.69 mSv 0 mSv Total DLP 639.85 DLP 639.85 DLP 0 DLP CTDIvol Max 15.66 mGy 15.66 mGy 0 mGy
--- OUTSIDE RECORDS SUMMARY | 2024-11-20 08:19 | XMS_ITS | Clinical Summary ---
Author Organization [facility] Address [address] [place] [address] Care Team Providers Care Bank Clerk Name Role Phone Lucila Gomez MD Primary Care Provider [phone] Allergies No known active allergies Medications albuterol sulfate HFA 90 mcg/actuation aerosol inhaler INHALE 2 PUFFS BY ORAL INHALATION FOUR TIMES A DAY NEEDED FOR COPD SHAKE WELL. RINSE MOUTHPIECE FREQUENTLY TO PREVENT CLOGGING. 3 Active budesonide-glyc opyr-formoterol 160-9-4.8 mcg/actuation HFA Aerosol Inhaler INHALE 2 [...] 6 hours as needed for Pain. Active diclofenac sodium (VOLTAREN) 1 % gel Apply to affected area 4 times daily. Active dexAMETHasone (DECADRON) 4 mg tablet Take 2 Tablets (8 mg) by mouth one time for 1 dose. Take in the morning on day of scheduled brain radiation with food. 2 Tablet 4 Active ondansetron (ZOFRAN ODT) 8 mg Tablet, Rapid DissolveIndicat ions:Small cell lung cancer (CMS/HCC) Dissolve 1 tablet on top of tongue then swallow with saliva every 8 hours as needed for nausea or vomiting 30 Tablet 1 4 Active diphenoxylate-a tropine 2.5 mg-0.025 mg tablet Take 1 Tablet by mouth 4 times daily as needed for Diarrhea/Loose Stools. 30 Tablet 4 Active ferrous sulfate 325 mg (65 mg iron) tablet Take 325 mg by mouth daily. Active cyanocobalamin 1,000 mcg Tablet Take 1,000 mcg by mouth daily. Active pantoprazole (PROTONIX) 20 mg Tablet, Delayed Release (E.C.) Take 20 mg by mouth daily. 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 Gastroesophageal reflux dise ase with esophagitis without hemorrhage 10/31/2024 Encounters Date Type Department Care Team Description 11/19/2024 Orders Only [facility] On[facility] and Hematology [facility] [address] [place] [address] Shawn Burnham MD 11/18/2024 10:00 AM CDT Office Visit [facility] and [facility] [address] [place] [address] Shawn Burnham MD Small cell carcinoma of lung, unspecified laterality, unspecified part of lung ([facility]/HCC) (Primary Dx) 11/11/2024 Orders Only [facility] and Hematology [facility] [address] [place] [address] Shawn Burnham MD Small cell carcinoma of lung, unspecified laterality, unspecified part of lung (CMS/HCC) 11/05/2024 External Device Data [facility] ABSTRACTION Provider, Abstract 11/05/2024 External Device Data [facility] ABSTRACTION Provider, Abstract 11/05/2024 External Device Data [facility]STRACTION Provider, Abstract 10/31/2024 4:37 AM CDT - 11/11/2024 2:34 PM CDT Hospital Encounter [facility] [address] [place] [address] Jostin Cunningham MD Abduljaber, MD Nikunj Fleming, DO Jacques Melendez Vikram, MD Tension pneumothorax Discharge Disposition: [place] Health Care [facility] 10/31/2024 Travel 10/28/2024 Orders Only [facility] and Hematology - [place] [address] [place] [phone] Shawn Burnham MD Small cell carcinoma of lung, unspecified laterality, unspecified part of lung (CMS/HCC) 10/23/2024 External Device Data [facility] ABSTRACTION Provider, Abstract 10/22/2024 External Device Data [facility]CTION Provider, Abstract 10/14/2024 Orders Only [facility] and Hematology - [place] [address] Shawn Burnham MD Small cell carcinoma of lung, unspecified laterality, unspecified part of lung (CMS/HCC) 10/01/2024 9:30 AM CDT Office Visit [facility] and Hematology - [place] [address] [place] [id number] Shawn Burnham MD Small cell carcinoma of lung, unspecified laterality, unspecified part of lung (CMS/HCC) (Primary Dx) 10/01/2024 Orders Only [facility] and Hematology - [place] [address] [place] [phone] Shawn Burnham MD 09/30/2024 Orders Only [facility] and Hematology - [place] [address] [place] [address] Shawn Burnham MD Small cell carcinoma of lung, unspecified laterality, unspecified part of lung (CMS/HCC) 09/25/2024 Orders Only [facility] and [facility]ology - [place] [address] [place] [address] Shawn Burnham MD 09/24/2024 External Device Data [facility] ABSTRACTION Provider, Abstract 09/16/2024 Orders Only [facility] - [place] [address] [place] [address] Shawn Burnham MD Small cell carcinoma of lung, unspecified laterality, unspecified part of lung ([facility]) 09/03/2024 External Device Data [facility] ABSTRACTION Provider, Abstract 09/02/2024 Orders Only [facility] and Hematology [facility] [address] [place] [address] Shawn Burnham MD Small cell carcinoma of lung, unspecified laterality, unspecified part of lung ([facility]) 08/29/2024 External Device Data [facility] ABSTRACTION Provider, Abstract 08/28/2024 External Device Data [facility] ABSTRACTION Provider, Abstract 08/27/2024 External Device Data [facility] ABSTRACTION Provider, Abstract from Last 3 Months Family History Medical [...] Sign Reading Time Taken Comments Blood Pressure 142/102 11/18/2024 9:26 AM CDT Pulse 81 11/18/2024 9:26 AM CDT Temperature 36.3 C (97.4 F) 11/18/2024 9:26 AM CDT Respiratory Rate 23 11/11/2024 12:26 PM CDT Oxygen Saturation 98% 11/18/2024 9:26 AM CDT Inhaled Oxygen Concentration - - Weight 73.9 kg (163 lb) 11/18/2024 9:26 AM CDT Height 177.8 cm (5' 10) 11/18/2024 9:26 AM CDT Body Mass Index 23.39 11/18/2024 9:26 AM CDT Plan of Treatment Upcoming Encounters Date Type Department Care Team (Late st Contact Info) Description 01/20/2025 9:15 AM CDT Office Visit [facility] On[facility] and Hematology - [place] [address] [place] [address] Shawn Burnham MD [address] [facility] [address] [place] [address] Health Maintenance Due Date Last [...] METABOLIC PANEL Routine 11/18/2024 11:35 AM CDT TELEMETRY REPORT 11/12/2024 4:39 PM CDT XR CHEST PA OR AP 1 VW Pending Discharge 11/11/2024 11:49 AM CDT XR CHEST PA AND LATERAL 2 VW Routine 11/11/2024 5:11 AM CDT BASIC METABOLIC PANEL Routine 11/11/2024 1:09 AM CDT CBC WITH DIFFERENTIAL Routine 11/11/2024 1:09 AM CDT XR CHEST PA AND LATERAL 2 VW Pending Discharge 11/10/2024 8:34 AM CDT XR CHEST PA OR AP 1 VW Pending Discharge 11/10/2024 4:46 AM CDT BASIC METABOLIC PANEL Routine 11/10/2024 3:00 AM CDT CBC WITH DIFFERENTIAL Routine 11/10/2024 3:00 AM CDT BASIC METABOLIC PANEL Routine 11/09/2024 11:56 AM CDT CBC WITH DIFFERENTIAL Routine 11/09/2024 11:56 AM CDT XR CHEST PA OR AP 1 VW Routine 11/09/2024 5:18 AM CDT XR CHEST PA OR AP 1 VW Routine 11/08/2024 5:50 AM CDT XR CHEST PA OR AP 1 VW Pending Discharge 11/07/2024 8:37 AM CDT BASIC METABOLIC PANEL Routine 11/07/2024 2:45 AM CDT CBC WITH DIFFERENTIAL Routine 11/07/2024 2:45 AM CDT XR CHEST PA OR AP 1 VW Routine 11/06/2024 11:41 AM CDT BASIC METABOLIC PANEL Routine 11/06/2024 9:46 AM CDT CBC WITH DIFFERENTIAL Routine 11/06/2024 9:46 AM CDT XR CHEST PA OR AP 1 VW Routine 11/05/2024 6:27 AM CDT XR CHEST PA OR AP 1 VW Stat 11/04/2024 2:[address] CHEST W CONTRAST Routine 11/04/2024 1 0:58 AM CDT XR CHEST PA OR AP 1 VW Pending Discharge 11/04/2024 6:02 AM CDT XR CHEST PA OR AP 1 VW Pending Discharge 11/03/2024 5:40 AM CDT CBC WITH DIFFERENTIAL Routine 11/03/2024 1:30 AM CDT BASIC METABOLIC PANEL Routine 11/03/2024 1:30 AM CDT XR CHEST PA OR AP 1 VW Routine 11/02/2024 5:[address] CHEST W CONTRAST Routine 11/01/2024 3 :42 PM CDT PROCALCITONIN Routine 10/31/2024 7:46 AM CDT COMPREHENSIVE METABOLIC PANEL Routine 10/31/2024 7:45 AM CDT MAGNESIUM LEVEL Routine 10/31/2024 7:45 AM CDT CBC WITH DIFFERENTIAL Routine 10/31/2024 7:45 AM CDT LACTIC ACID Stat 10/31/2024 7:45 AM CDT XR CHEST PA OR AP 1 VW Routine 10/31/2024 7:03 AM CDT RT ASSESS AND TREAT Routine 10/31/2024 5 :46 AM CDT BASIC METABOLIC PANEL Routine 10/01/2024 12:49 PM CDT COMPREHENSIVE METABOLIC PANEL Routine 10/01/2024 12:[address] CHEST W CONTRAST Routine 09/24/2024 1 0:26 AM CDT from Last 3 Months Results * BASIC METABOLIC PANEL (11/18/2024 12:17 PM CDT) Only the most recent of8 resultswithin the time period is included. Blood Shawn Burnham MD CHEMISTRY ORDERABLES Final Resu lt * COMPREHENSIVE METABOLIC PANEL (11/18/2024 11:35 AM CDT) Only the most recent of3 resultswithin the time period is included. Blood Shawn Burnham MD CHEMISTRY ORDERABLES Final Resu lt * TELEMETRY REPORT (11/12/2024 4:39 PM CDT) Provider Scanning ECG ORDERABLES Final Result * XR CHEST PA OR AP 1 VW (11/11/2024 11:49 AM CDT) Only the most recent of12 resultswithin the time period is included. Anatomical Region Laterality Modality Chest Computed Radiogr aphy 11/11/2024 11:4 9 AM CDT Impressions 11/11/2024 6:35 PM CDT IMPRESSION: Extensive subcutaneous emphysema in the left chest appears similar to prior exam. No large pneumothorax. Bilateral fibrosis with right basilar effusion versus pleural thickening. Interval removal of the left-sided chest tube. DICTATION LOCATION: [address] Narrative 11/11/2024 6:35 PM CDT CHEST, 1 VIEW DATE: 11/11/2024 11:49 AM HISTORY: Pneumothorax. See Reason for Exam COMPARISON: 11/11/2024 Procedure Note Juan Manuel Aguero MD - 11/11/2024 CHEST, 1 VIEW DATE: 11/11/2024 11:49 AM HISTORY: Pneumothorax. See Reason for Exam COMPARISON: 11/11/2024 IMPRESSION: Extensive subcutaneous emphysema in the left chest appears similar to prior exam. No large pneumothorax. Bilateral fibrosis with right basilar effusion versus pleural thickening. Interval removal of the left-sided chest tube. DICTATION LOCATION: Location - [facility] Gudelia Michelle HAY STACKER OPERATOR DIAGNOSTIC IMAGING ORDERABL ES Final Result * XR CHEST PA AND LATERAL 2 VW (11/11/2024 5:11 AM CDT) Only the most recent of2 resultswithin the time period is included. Anatomical Region Laterality Modality Chest Computed Radiogr aphy 11/11/2024 5:11 AM CDT Impressions 11/11/2024 9:42 AM CDT IMPRESSION: 1. Stable radiographic appearance of the thorax. DICTATION LOCATION: Location [address] [place] [address] Narrative 11/11/2024 9:42 AM CDT EXAMINATION: XR CHEST PA AND LATERAL 2 VW DATE: 11/11/2024 5:11 AM CLINICAL INDICATION: Pneumothorax. See Reason for Exam COMPARISON: November 10, 2024. FINDINGS: Left chest wall Port-A-Cath and left sided pigtail catheter appear unchanged in position. Persistent right lower lung airspace opacity with prominent interstitial markings within the peripheral and basilar lungs. No new airspace consolidation. There is blunting of the costophrenic sulci. No definite pneumothorax. Subcutaneous emphysema is present. The cardiomediastinal silhouette appears unchanged. Procedure Note Oswaldo Kowalski MD - 11/11/2024 EXAMINATION: XR CHEST PA AND LATERAL 2 VW DATE: 11/11/2024 5:11 AM CLINICAL INDICATION: Pneumothorax. See Reason for Exam COMPARISON: November 10, 2024. FINDINGS: Left chest wall Port-A-Cath and left sided pigtail catheter appear unchanged in position. Persistent right lower lung airspace opacity with prominent interstitial markings within the peripheral and basilar lungs. No new airspace consolidation. There is blunting of the costophrenic sulci. No definite pneumothorax. Subcutaneous emphysema is present. The cardiomediastinal silhouette appears unchanged. IMPRESSION: 1. Stable radiographic appearance of the thorax. DICTATION LOCATION: Location [address] [place] [address] Gayle FULLER DIAGNOSTIC IMAGING ORDERA BLES Final Result * (ABNORMAL) CBC WITH DIFFERENTIAL (11/11/2024 1:09 AM CDT) Only the most recent of7 resultswithin the time period is included. WBC 4.4 4.0 - 9.8 K/uL 11/11/2024 2:01 AM CDT [facility] RBC 3.84(L) 4.50 - 5.40 M/uL 11/11/2024 2:01 AM CDT [facility] HEMOGLOBIN 11.1(L) 13.6 - 16.5 g/dL 11/11/2024 2:01 AM CDT [facility] HEMATOCRIT 33.3(L) 40.0 - 48.0 % 11/11/2024 2:01 AM CDT [facility] MCV 86.7 82.0 - 99.0 fL 11/11/2024 2:01 AM CDT [facility] MCH 28.9 27.2 - 32.6 pg 11/11/2024 2:01 AM CDT [facility] - [facility] MCHC 33.3 31.5 - 35.5 g/dL 11/11/2024 2:01 AM CDT [facility] - [facility] RDW 14.8(H) 11.5 - 14.5 % 11/11/2024 2:01 AM CDT [facility] RDW-STDEV 47.2 37.1 - 48.7 fL 11/11/2024 2:01 AM CDT [facility] - [facility] PLATELETS 158 140 - 350 K/uL 11/11/2024 2:01 AM CDT [facility] MPV 9.5 9.3 - 12.4 fL 11/11/2024 2:01 AM CDT [facility] . [facility] NEUTROPHILS 60 % 11/11/2024 2:01 AM CDT [facility] [place] LYMPHOCYTES 22 % 11/11/2024 2:01 AM CDT [facility] . [place] MONOCYTES 14 % 11/11/2024 2:01 AM CDT [facility] [place] EOSINOPHILS 4 % 11/11/2024 2:01 AM CDT [facility] - . [place] BASOPHILS 1 % 11/11/2024 2:01 AM CDT [facility] [place] IMMATURE GRANULOCYTES 1 % 11/11/2024 2:01 AM CDT [facility] - [facility] [place] Comment:IG (Immature Granulo cyte) count includes Metamyelocytes, Myelocytes, and Promyelocytes NEUTROPHIL ABSOLUTE 2.64 1.90 - 7.00 K/uL 11/11/2024 2:01 AM CDT [facility] LABORATORY [facility] LYMPHOCYTE ABSOLUTE 0.96 0.70 - 4.50 K/uL 11/11/2024 2:01 AM CDT [facility] LABORATORY SERVICES - [facility] MONOCYTE ABSOLUTE 0.60 0.10 - 1.30 K/uL 11/11/2024 2:01 AM CDT [facility]ORATORY SERVICES - [facility] EOSINOPHIL ABSOLUTE 0.16 0.00 - 0.70 K/uL 11/11/2024 2:01 AM CDT [facility] LABORATORY SERVICES - . [facility] BASOPHILS ABSOLUTE 0.03 0.00 - 0.20 K/uL 11/11/2024 2:01 AM CDT [facility] LABORATORY [facility] IMMATURE GRANULOCYTES ABSOLUTE 0.03 0.00 - 0.03 K/uL 11/11/2024 2:01 AM CDT [facility] LAB[facility]ATORY [facility] Blood Venipuncture / Unknown 11/11/2024 1:09 AM CDT 11/11/2024 1:38 AM CDT Wang Hanna MD HEMATOLOGY ORDERABLES Final Re sult [facility]# [id number] [address] [place] [address] * CT CHEST W CONTRAST (11/04/2024 10:58 AM CDT) Only the most recent of3 resultswithin the time period is included. Anatomical Region Laterality Modality Chest Computed Tomogra phy 11/04/2024 10:5 3 AM CDT Impressions 11/04/2024 5:04 PM CDT IMPRESSION: 1. Interval retraction of an indwelling left pleural catheter now terminating in the left chest subcutaneous soft tissues. 2. Increased large left pneumothorax with associated findings suspicious for tension physiology. Findings are known to the treatment team at time of dictation as indicated by a subsequent chest radiograph performed at 2:28 PM on 11/04/2024 demonstrating a new pleural catheter in place and overall decrease in size of this pneumothorax. 3. Stable asymmetric volume loss and posttreatment changes in the perihilar right mid and lower lung. Small bilateral pleural effusions are unchanged. 4. Increased extent of subcutaneous gas throughout the left chest, axilla and traversing midline to the right pectoralis soft tissues. DICTATION LOCATION: Location 1 - [facility] Narrative 11/04/2024 5:04 PM CDT EXAMINATION: CT CHEST W CONTRAST DATE: 11/04/2024 10:58 AM HISTORY: Pneumothorax See Reason for Exam TECHNIQUE: Computed tomography of the chest was performed following the uneventful administration of intravenous contrast (IOPAMIDOL 61 % INTRAVENOUS SOLUTION (MULTI-DOSE BULK PACK) Given:90 mL) according to standard protocol. The examination was performed with the adjustment of mA according to the patient size and/or the use of Iterative Reconstruction Technique. FINDINGS: Comparison made with the prior chest CT from 11/01/2024. Lines/tubes: Left subclavian approach port catheter tip terminates in the SVC. Previously identified percutaneous pleural catheter in the left hemithorax has retracted into the soft tissues of the chest wall (series 2, image 213). Heart and mediastinum: Heart size is normal. Rightward mediastinal shift in part relates to asymmetric volume loss in the right lung base. Normal caliber of the superior and inferior vena cava. Heavy multivessel coronary calcifications are present. The ascending aorta and main pulmonary artery are nondilated. Scattered subcentimeter mediastinal and hilar lymph nodes are present. Trace pneumomediastinum persists. Lungs and Airways: Central airways are patent. Asymmetric volume loss and radiation fibrosis in the perihilar right midlung and basilar right lower lobe. 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 Multisegmental compressive atelectasis in the basilar lower lobes appear similar to the prior. No new area of consolidation. Pleura: Increased large left pneumothorax with basilar displacement of the left hemidiaphragm and rightward mediastinal shift and increasing suspicion for tension physiology. Small chronic right pleural effusion is unchanged. No right pneumothorax. Lower neck and soft tissues: The imaged thyroid gland appears normal. Interval increase in diffuse subcutaneous gas throughout the left chest axilla and supraclavicular soft tissues with gas now seen extending across midline to the right pectoralis musculature. Abdomen: Imaged portions of the upper abdomen are within normal limits. Bones: No suspicious lytic or blastic lesions are seen. INCIDENTAL FINDINGS: None. Procedure Note Garo Knapp, DO - 11/04/2024 EXAMINATION: CT CHEST W CONTRAST DATE: 11/04/2024 10:58 AM HISTORY: Pneumothorax See Reason for Exam TECHNIQUE: Computed tomography of the chest was performed following the uneventful administration of intravenous contrast (IOPAMIDOL 61 % INTRAVENOUS SOLUTION (MULTI-DOSE BULK PACK) Given:90 mL) according to standard protocol. The examination was performed with the adjustment of mA according to the patient size and/or the use of Iterative Reconstruction Technique. FINDINGS: Comparison made with the prior chest CT from 11/01/2024. Lines/tubes: Left subclavian approach port catheter tip terminates in the SVC. Previously identified percutaneous pleural catheter in the left hemithorax has retracted into the soft tissues of the chest wall (series 2, image 213). Heart and mediastinum: Heart size is normal. Rightward mediastinal shift in part relates to asymmetric volume loss in the right lung base. Normal caliber of the superior and inferior vena cava. Heavy multivessel coronary calcifications are present. The ascending aorta and main pulmonary artery are nondilated. Scattered subcentimeter mediastinal and hilar lymph nodes are present. Trace pneumomediastinum persists. Lungs and Airways: Central airways are patent. Asymmetric volume loss and radiation fibrosis in the perihilar right midlung and basilar right lower lobe. 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 Multisegmental compressive atelectasis in the basilar lower lobes appear similar to the prior. No new area of consolidation. Pleura: Increased large left pneumothorax with basilar displacement of the left hemidiaphragm and rightward mediastinal shift and increasing suspicion for tension physiology. Small chronic right pleural effusion is unchanged. No right pneumothorax. Lower neck and soft tissues: The imaged thyroid gland appears normal. Interval increase in diffuse subcutaneous gas throughout the left chest axilla and supraclavicular soft tissues with gas now seen extending across midline to the right pectoralis musculature. Abdomen: Imaged portions of the upper abdomen are within normal limits. Bones: No suspicious lytic or blastic lesions are seen. INCIDENTAL FINDINGS: None. IMPRESSION: 1. Interval retraction of an indwelling left pleural catheter now terminating in the left chest subcutaneous soft tissues. 2. Increased large left pneumothorax with associated findings suspicious for tension physiology. Findings are known to the treatment team at time of dictation as indicated by a subsequent chest radiograph performed at 2:28 PM on 11/04/2024 demonstrating a new pleural catheter in place and overall decrease in size of this pneumothorax. 3. Stable asymmetric volume loss and posttreatment changes in the perihilar right mid and lower lung. Small bilateral pleural effusions are unchanged. 4. Increased extent of subcutaneous gas throughout the left chest, axilla and traversing midline to the right pectoralis soft tissues. DICTATION LOCATION: Location 1 - [facility] us Gudelia Michelle NP CT ORDERABLES Final Resul t * PROCALCITONIN (10/31/2024 7:46 AM CDT) PROCALCITONIN 0.16 <=0.25 ng/mL 10/31/2024 8:42 AM CDT [facility] Blood Venipuncture / Unknown 10/31/2024 7:46 AM CDT 10/31/2024 7:56 AM CDT Narrative [facility] Stop Being Watched [facility] - 10/31/2024 8:42 AM CDT The utility of procalcitonin is limited/NOT recommended in certain populations (e.g. newborns, dialysis/ESRD, patients with recent major surgery/trauma/garcia, liver cirrhosis, viral hepatitis, certain cancers, etc.). Procalcitonin levels MUST be interpreted in the context of the patient's clinical condition and CANNOT be solely relied upon for diagnosis of infection. <0.25 ng/mL: Bacterial infection unlikely, particularly lower respiratory tract infections. <0.5 ng/mL: Low risk for progression to severe sepsis/septic shock. Localized infection possible. Measurements done early (<6 hours) after systemic process starts may still be low. 0.5-2 ng/mL: Moderate risk for progression to severe sepsis/septic shock. >2 ng/mL: High risk for progression to severe sepsis/septic shock. If antibiotics ARE administered, repeat testing is recommended every 2-3 days to help guide antibiotic cessation. Once a decrease of 80% or more has occurred from baseline, discontinuation of antibiotics should strongly be considered in clinically stable patients. Procalcitonin is produced in the setting of systemic inflammation, particularly bacterial infections. It is detectable within 2-4 hours and peaks within 6-24 hours. Holly Hernandez MD CHEMISTRY ORDERABLES Final Result Performing Organization Address [facility]/ZIP Co de Phone Number [facility]# [id number] [address] [place] [address] * LACTIC ACID (10/31/2024 7:45 AM CDT) LACTIC ACID 1.3 <=2.0 mmol/L 10/31/2024 8:27 AM CDT [facility] LABORATORY [facility] Blood Venipuncture / Unknown 10/31/2024 7:45 AM CDT 10/31/2024 7:57 AM CDT Holly Hernandez MD CHEMISTRY ORDERABLES Final Result Performing Organization Address [facility]/ZIP Co de Phone Number [facility] Stop Being Watched [facility]# [id number] [address] [place] [address] * MAGNESIUM LEVEL (10/31/2024 7:45 AM CDT) MAGNESIUM 2.0 1.6 - 2.4 mg/dL 10/31/2024 8:34 AM CDT [facility] Blood Venipuncture / Unknown 10/31/2024 7:45 AM CDT 10/31/2024 7:56 AM CDT Holly Hernandez MD CHEMISTRY ORDERABLES Final Result [facility] Stop Being Watched [facility] CLIA# [id number] [address] [place] [address] from Last 3 Months Insurance [facility] SUPP BS SUPP Advance Directives For more information, please contact: [phone] * Full Code (Latest Code Status on File) Date Activated Date Inactivated Comments 10/31/2024 5:46 AM 11/11/2024 5:04 PM Care Teams Bank Clerk Relationship Specialty Start Date End Date Lucila Gomez MD [address] [place] [id number] PCP - General Family Practice 12/14/22
--- OUTSIDE RECORDS SUMMARY | 2024-11-20 08:19 | XMS_ITS | Clinical Summary ---
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
--- OUTSIDE RECORDS SUMMARY | 2024-11-20 08:19 | XMS_ITS | Clinical Summary ---
Author Organization [facility] Address [address] [place] [address] Care Team Providers Care Upper Shaper Name Role Phone Lucila Gomez MD Unavailable Source Comments [facility],non-owned Affiliates and Associated Physician Practices is amultiple site organization consisting of ambulatory clinics and hospital sitesin [place], [place], [place]. This disclosure is being madepursuant to the Care Everywhere program and may not contain all information available regarding this patient. Last updated 17.[facility] Allergies No known active allergies Medications * [...] +D PO) Take by mouth daily. Active Liscomb-3 Fatty Acids (OMEGA 3 PO) Take by [...] on file Legal Sex Male 9:36 AM CREW CHIEF Gender Identity Not on file Sexual Orientation Not on file Last Filed Vital Signs Vital Sign Reading Time Taken Comments Blood Pressure - - Pulse - - Temperature - - Respiratory Rate - - Oxygen Saturation - - Inhaled Oxygen Concentration - - Weight 83.9 kg (185 lb) 03/03/2010 11:05 AM CREW CHIEF Height 182.9 cm (6') 03/03/2010 11:05 AM CREW CHIEF Body Mass Index 25.09 03/03/2010 11:05 AM CREW CHIEF Plan of Treatment Health Maintenance Due Date [...] this topic Insurance MEDICARE MEDICARE Care Teams Upper Shaper Relationship Specialty Start Date End Date Lucila Gomez MD [address] [place] [address] Family Medicine 03/03/10
== END 2024-11-20 08:15 | disposition home or self-care (01) ==
LOC: CHSIMG 08:16
PROVIDERS: PCP Family Medicine; Visit Provider Family Medicine
DX: Z87.09 Personal history of other diseases of the respiratory system (principal); J84.10 Pulmonary fibrosis, unspecified; J90 Pleural effusion, not elsewhere classified; J43.9 Emphysema, unspecified; R91.8 Other nonspecific abnormal finding of lung field
CPT/HCPCS: 71046

== ENCOUNTER 2025-01-16 10:31 | Outpatient (CLI) | payer MEDICARE, SELFPAY ==
--- NOTE | ~2025-01-16 | CT_ITS ---
EXAMINATION:CT diagnostic chest w con DATE: 01/16/2025 11:02 INDICATION: Small cell carcinoma of lung. TECHNIQUE: Computed tomography (CT) of the chest was performed with 75 mL Omnipaque 350 intravenous contrast. Automated exposure control and iterative reconstruction technique were employed. The dose-length product (DLP) was 194.00 mGy-cm. COMPARISON: Chest CT 09/24/2024 FINDINGS: There is severe emphysema. There is widespread chronic septal thickening in the lungs. There are chronic airspace opacities in the right middle lobe and right lower lobe with volume loss. There are pleural calcifications in the left hemithorax, likely changes of pleurodesis. A calcified left lung nodule and calcified left hilar lymph nodes are consistent with old granulomatous disease. There is a new 12 mm nodule in left lower lobe. There is a 7 mm nodule in left upper lobe, increased from 3 mm. There is a 7 mm pleural-based nodule in right upper lobe, increased from 3 mm. There is a small right pleural effusion with pleural thickening. The heart size is normal. There are coronary artery calcifications. No pericardial effusion. There is a left subclavian port with tip in superior vena cava. There are gallstones in the gallbladder, which is normal in size. There are cysts in the kidneys measuring up to 2.4 cm on the right. There is moderate thoracic spondylosis. There is a chronic compression fracture of L1. IMPRESSION: 1. Worsened pulmonary nodules, consistent metastatic disease. 2. Severe emphysema and chronic lung disease. 3. Chronic small right pleural effusion with pleural thickening, likely an exudate. Reviewed, dictated and finalized at location E. IMPRESSION: 1. Worsened pulmonary nodules, consistent metastatic disease. 2. Severe emphysema and chronic lung disease. 3. Chronic small right pleural effusion with pleural thickening, likely an exud ate.
[2025-01-16 10:59] LABS: Estimated Glomerular Filt Rate > 60
== END 2025-01-16 10:32 | disposition home or self-care (01) ==
PROVIDERS: PCP Family Medicine Adolescent Medicine; Visit Provider Internal Medicine Hematology & Oncology
DX: C34.90 Malignant neoplasm of unspecified part of unspecified bronchus or lung (principal); J98.4 Other disorders of lung; J90 Pleural effusion, not elsewhere classified; J43.9 Emphysema, unspecified
CPT/HCPCS: 71260; Q9967

== ENCOUNTER 2025-02-12 08:44 | Emergency (ER) | payer OTHER, MEDICARE, SELFPAY ==
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
[2025-02-12 08:43] VITALS: BP 171/98; PULSE 91; RESP 29; TEMP 36.6; O2SAT 93
--- NOTE | 2025-02-12 08:50 | ECG_ITS ---
Test Date: 2025-02-12 09:09:02 Measurements Intervals [place] Rate: 88 P: 69 AL: 176 QRS: 85 QRSD: 114 T: 60 QT: 349 QTc: 422 Interpretive Statements SINUS RHYTHM INCOMPLETELY RIGHT BUNDLE BRANCH BLOCK [120+ ms QRS DURATION, UPRIGHT V1, 40+ ms S IN I/aVL/V4/V5/V6] ABNORMAL ECG Compared to ECG 10/30/2024 23:31:51 Sinus tachycardia no longer present Ventricular premature complex(es) no longer present Incomplete right bundle-branch block no longer present Electronically Signed On 02-12-2025 14:39:32 COACH CLEANER by Mike Joseph M.D.
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
[2025-02-12 09:44] LABS: Hematocrit 45.5 % (42.0-52.0); Hemoglobin 14.9 g/dL (14.0-18.0); Immature Granulocyte Percent A 0.7 % (0-0.5); Lymphocytes Absolute Auto 1.12 K/mm3 (0.9-3.2); Mean Corpuscular HGB Conc 32.7 g/dl (32-36); Mean Corpuscular Hemoglobin 29.2 pg (26-34); Mean Corpuscular Volume 89.0 fl (80-100); Nucleated Red Blood Cells Absolute Auto 0.000 K/mm3 (0.0-0.012); Nucleated Red Blood Cells Perc 0.0 % (0.0-0.2); Platelet Count Result 162 k/mm3 (150-375); Red Blood Count 5.11 M/mm3 (4.6-6.20); White Blood Count 8.1 K/mm3 (4.5-10.0)
[2025-02-12 09:53] LABS: Estimated CRCL calculation 40 ml/min; Estimated Glomerular Filt Rate 57
[2025-02-12 09:56] LABS: Alanine Aminotransferase 23 U/L (6-50); Albumin Level 4.3 g/dL (3.5-5.1); Alkaline Phosphatase 64 U/L (38-126); Anion Gap 9 mmol/L (4-12); Aspartate Amino Transferase 34 U/L (17-59); Bilirubin,Total 0.6 mg/dL (0.2-1.3); Blood Urea Nitrogen 26 mg/dL (9-20); Calcium 9.3 mg/dL (8.4-10.2); Carbon Dioxide 22 mmol/L (22-30); Chloride 99 mmol/L (98-107); Estimated CRCL calculation 48 ml/min; Estimated Glomerular Filt Rate > 60; Glucose 92 mg/dL (65-110); Potassium 4.9 mmol/L (3.4-5.0); Sodium 130 mmol/L (137-145); Total Protein 8.0 g/dL (6.3-8.2)
[2025-02-12 10:13] LABS: Troponin I < 0.012 ng/mL (0.000-0.034)
[2025-02-12 10:40] VITALS: BP 158/96; PULSE 98; RESP 21; O2SAT 94
[2025-02-12 11:00] VITALS: BP 155/98; PULSE 98; RESP 22; O2SAT 96
[2025-02-12 11:36] VITALS: BP 162/97; PULSE 95; RESP 21; O2SAT 93
--- OUTSIDE RECORDS SUMMARY | 2025-02-12 13:22 | XMS_ITS | Encounter Summary ---
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 obtained from the neck base through the pelvis after the uneventful administration of intravenous contrast in the axial plane and reformatted in coronal and sagittal planes. The examination was performed with the adjustment of mA according to the patient size and/or the use of Iterative Reconstruction Technique. FINDINGS: CHEST: Lungs and Airways: Similar volume loss within the right lung with right basilar consolidation. There is severe emphysema. 1.7 cm left lower lobe nodule which is not visualized on prior exam from 11/04/2024. Additional 1 cm subpleural nodule within the right upper lobe (series 5, image 111) Pleura: Small right pleural effusion. No pneumothorax. Scattered areas of pleural thickening. Left basilar pleural calcification which may represent posttreatment changes. Heart and Mediastinum: The visualized portions of the thyroid gland are normal in size and attenuation. No axillary or supraclavicular lymphadenopathy. No mediastinal, hilar or retrocrural lymphadenopathy. Normal heart size. No pericardial effusion. Coronary artery calcifications. The thoracic aorta is normal caliber. ABDOMEN: No intraperitoneal free air, free fluid or focal fluid collection. Liver: Liver enhances homogeneously without focal mass. Biliary: Cholelithiasis. 8 mm stone within the common bile duct. The common bile duct is dilated to 13 mm. Spleen: Normal spleen. Pancreas: Pancreas enhances homogeneously without focal mass. No ductal dilation or peripancreatic inflammation. Adrenal: Unchanged nodular right adrenal gland. Kidneys and Ureters: Renal cysts. No hydronephrosis. Gastrointestinal Tract: Stomach is decompressed and poorly evaluated. Small bowel and colon are normal caliber. Normal appendix. Sigmoid predominant colonic diverticulosis without CT evidence of diverticulitis. Vasculature: Ectatic infrarenal abdominal aorta measuring up to 2.7 cm. Celiac, SMA, JOHANN and renal arteries are patent. Mesenteric and portal veins are patent. Lymph Nodes: No lymphadenopathy in the abdomen or pelvis. Genitourinary: The bladder is distended with contrast without focal wall abnormality. Normal prostate and seminal vesicles. Skeletal Structures and Soft Tissues: Diffuse osseous demineralization. New mild superior endplate height loss at T1 and T3. Nondisplaced fracture of the bilateral anterior fourth and fifth ribs. Procedure Note Pramod Suazo, DO - 02/12/2025 CT CHEST ABDOMEN PELVIS W CONT INDICATION: Polytrauma, blunt COMPARISON: Same day outside CT chest abdomen and pelvis. CT chest 11/04/2024. TECHNIQUE: CT was obtained from the neck base through the pelvis after the uneventful administration of intravenous contrast in the axial plane and reformatted in coronal and sagittal planes. The examination was performed with the adjustment of mA according to the patient size and/or the use of Iterative Reconstruction Technique. FINDINGS: CHEST: Lungs and Airways: Similar volume loss within the right lung with right basilar consolidation. There is severe emphysema. 1.7 cm left lower lobe nodule which is not visualized on prior exam from 11/04/2024. Additional 1 cm subpleural nodule within the right upper lobe (series 5, image 111) Pleura: Small right pleural effusion. No pneumothorax. Scattered areas of pleural thickening. Left basilar pleural calcification which may represent posttreatment changes. Heart and Mediastinum: The visualized portions of the thyroid gland are normal in size and attenuation. No axillary or supraclavicular lymphadenopathy. No mediastinal, hilar or retrocrural lymphadenopathy. Normal heart size. No pericardial effusion. Coronary artery calcifications. The thoracic aorta is normal caliber. ABDOMEN: No intraperitoneal free air, free fluid or focal fluid collection. Liver: Liver enhances homogeneously without focal mass. Biliary: Cholelithiasis. 8 mm stone within the common bile duct. The common bile duct is dilated to 13 mm. Spleen: Normal spleen. Pancreas: Pancreas enhances homogeneously without focal mass. No ductal dilation or peripancreatic inflammation. Adrenal: Unchanged nodular right adrenal gland. Kidneys and Ureters: Renal cysts. No hydronephrosis. Gastrointestinal Tract: Stomach is decompressed and poorly evaluated. Small bowel and colon are normal caliber. Normal appendix. Sigmoid predominant colonic diverticulosis without CT evidence of diverticulitis. Vasculature: Ectatic infrarenal abdominal aorta measuring up to 2.7 cm. Celiac, SMA, JOHANN and renal arteries are patent. Mesenteric and portal veins are patent. Lymph Nodes: No lymphadenopathy in the abdomen or pelvis. Genitourinary: The bladder is distended with contrast without focal wall abnormality. Normal prostate and seminal vesicles. Skeletal Structures and Soft Tissues: Diffuse osseous demineralization. New mild superior endplate height loss at T1 and T3. Nondisplaced fracture of the bilateral anterior fourth and fifth ribs. IMPRESSION: 1. Nondisplaced fracture of the bilateral anterior fourth and fifth ribs. Small right pleural effusion. No pneumothorax. 2. New mild superior endplate height loss at T1 and T3 likely representing compression fractures. Please see concurrent dedicated spine imaging. 3. New left lower lobe pulmonary nodule not definitively seen on prior exam. Findings may represent new focus of metastatic disease. Attention on follow-up imaging. 4. Cholelithiasis and choledocholithiasis. There is dilation of the common bile duct up to 13 mm. Correlate with laboratory values. 5. Sigmoid colonic diverticulosis without CT evidence of diverticulitis. DICTATION LOCATION: Location 1 - [facility] Lida Moses MD CT ORDERABLES Final Result * CT 2D RECONSTRUCTION (02/12/2025 7:05 PM [employer]AL [employer]) Anatomical Region Laterality Modality Computed Tomogra phy 02/12/2025 6:54 PM [employer] Impressions 02/12/2025 7:19 PM [employer] Impression: 1. Age-indeterminate compression fractures of T1 and T3. 2. Chronic appearing compression fracture of L1. 3. No acute cervical or lumbar spine fracture. DICTATION LOCATION: Location 4 Narrative 02/12/2025 7:19 [address] [address] 2D RECONSTRUCTION 02/12/2025 7:05 PM Indication: Spine Comparison: None. Technique: CT imaging of the cervical, thoracic, and lumbar spine were reconstructed from the concurrent CT neck, chest, abdomen, and pelvis images. Coronal and sagittal reformatted images were performed. One or more of the following dose reduction techniques were utilized: Automated exposure control (AEC), Adjustment of mA and/or kV according to patient size, CT scan done according to ALARA and image gently/image wisely. Findings: The cervical, thoracic, and lumbar spine is normally aligned. No acute fracture. Age-indeterminate compression fractures of T1 and T3 with mild height loss. Chronic appearing compression fracture of L1. Mild and moderate multilevel degenerative disc disease. No aggressive lytic or blastic osseous lesion. No evidence of high-grade spinal canal stenosis.. Please refer to the concurrent CT chest, abdomen, and pelvis report for remaining thoracic, abdominal, and pelvic findings. Procedure Note Ramsey Liriano MD - 02/12/2025 CT 2D RECONSTRUCTION 02/12/2025 7:05 PM Indication: Spine Comparison: None. Technique: CT imaging of the cervical, thoracic, and lumbar spine were reconstructed from the concurrent CT neck, chest, abdomen, and pelvis images. Coronal and sagittal reformatted images were performed. One or more of the following dose reduction techniques were utilized: Automated exposure control (AEC), Adjustment of mA and/or kV according to patient size, CT scan done according to ALARA and image gently/image wisely. Findings: The cervical, thoracic, and lumbar spine is normally aligned. No acute fracture. Age-indeterminate compression fractures of T1 and T3 with mild height loss. Chronic appearing compression fracture of L1. Mild and moderate multilevel degenerative disc disease. No aggressive lytic or blastic osseous lesion. No evidence of high-grade spinal canal stenosis.. Please refer to the concurrent CT chest, abdomen, and pelvis report for remaining thoracic, abdominal, and pelvic findings. Impression: 1. Age-indeterminate compression fractures of T1 and T3. 2. Chronic appearing compression fracture of L1. 3. No acute cervical or lumbar spine fracture. DICTATION LOCATION: Location [address] ORDERABLES Final Result * CTA HEAD AND NECK W AND/OR WO CONTRAST (02/12/2025 7:04 PM [employer]) Anatomical Region Laterality Modality Head Computed Tomogra phy 02/12/2025 7:04 PM [employer] Impressions 02/12/2025 7:14 PM [employer] IMPRESSION: 1. Ovoid 11 mm focus of hyperattenuation associated with the left frontal lobe suggesting a small parenchymal hemorrhage versus a small vascular malformation which appears unchanged as compared with the prior study. 2. No large arterial occlusions or significant stenoses identified in the head or neck. DICTATION LOCATION: Location 4 Narrative 02/12/2025 7:14 PM [employer] EXAMINATION: CTA HEAD AND NECK W AND/OR WO CONTRAST HISTORY: Head trauma, intracranial arterial injury suspected. See Reason for Exam TECHNIQUE: CT of the head was performed without contrast according to standard protocol. Then CT angiography of the head and neck was obtained after the uneventful administration of 85 mL Isovue 300 intravenous contrast. RAPID LVO detection software was utilized. The images were reconstructed in Maximum Intensity Projection (MIP) using coronal and sagittal projections by the technologist and sent to the workstation for review. The examination was performed with the adjustment of mA according to the patient size and/or the use of Iterative Reconstruction Technique. FINDINGS: Comparison is made with a study from earlier today. Non-angiographic findings: There is an ovoid focus of hyperattenuation associated with the left frontal lobe measuring approximately 11 x 9 x 8 mm (AP by transverse by CC). There is mild cerebral volume loss with associated ex vacuo ventricular dilatation. The basilar cisterns are patent. No mass effect or midline shift is seen. The monet-white matter differentiation is normal. Periventricular white matter hypoattenuation is indicative of chronic small vessel ischemic disease. There is vascular calcification of the carotid siphons. Other than bilateral cataract extractions and mild paranasal sinus disease, the visible portions of the orbits, paranasal sinuses, and mastoids appear normal. No acute fracture is identified. No soft tissue abnormalities are identified in the neck. Angiographic findings: The visible aortic arch appears normal. The configuration of the brachiocephalic vessels is typical. There is atherosclerotic calcification of the innominate and subclavian arteries. There is atherosclerotic disease of the right carotid bifurcation and origin of the right internal carotid artery with less than 50 percent focal stenosis by [place] Stroke and Carotid Endarterectomy Trial (NASCET) criteria. The right common and internal carotid arteries otherwise appear normal. There is atherosclerotic disease of the left carotid bifurcation and origin of the left internal carotid artery with less than 50 percent focal stenosis by [place] Stroke and Carotid Endarterectomy Trial (NASCET) criteria. The left common and internal carotid arteries otherwise appear normal. The cervical vertebral arteries appear normal. There is atherosclerotic disease involving the distal internal carotid arteries without significant focal stenosis. The anterior and middle cerebral arteries appear normal. The distal vertebral arteries appear normal. The basilar artery and posterior cerebral arteries appear normal with origin of both posterior cerebral arteries. No aneurysms, vascular occlusions, or intracranial stenoses are identified. There is no dural venous sinus thrombosis. Procedure Note Oswaldo Kowalski MD - 02/12/2025 EXAMINATION: CTA HEAD AND NECK W AND/OR WO CONTRAST HISTORY: Head trauma, intracranial arterial injury suspected. See Reason for Exam TECHNIQUE: CT of the head was performed without contrast according to standard protocol. Then CT angiography of the head and neck was obtained after the uneventful administration of 85 mL Isovue 300 intravenous contrast. RAPID LVO detection software was utilized. The images were reconstructed in Maximum Intensity Projection (MIP) using coronal and sagittal projections by the technologist and sent to the workstation for review. The examination was performed with the adjustment of mA according to the patient size and/or the use of Iterative Reconstruction Technique. FINDINGS: Comparison is made with a study from earlier today. Non-angiographic findings: There is an ovoid focus of hyperattenuation associated with the left frontal lobe measuring approximately 11 x 9 x 8 mm (AP by transverse by CC). There is mild cerebral volume loss with associated ex vacuo ventricular dilatation. The basilar cisterns are patent. No mass effect or midline shift is seen. The monet-white matter differentiation is normal. Periventricular white matter hypoattenuation is indicative of chronic small vessel ischemic disease. There is vascular calcification of the carotid siphons. Other than bilateral cataract extractions and mild paranasal sinus disease, the visible portions of the orbits, paranasal sinuses, and mastoids appear normal. No acute fracture is identified. No soft tissue abnormalities are identified in the neck. Angiographic findings: The visible aortic arch appears normal. The configuration of the brachiocephalic vessels is typical. There is atherosclerotic calcification of the innominate and subclavian arteries. There is atherosclerotic disease of the right carotid bifurcation and origin of the right internal carotid artery with less than 50 percent focal stenosis by [place] Stroke and Carotid Endarterectomy Trial (NASCET) criteria. The right common and internal carotid arteries otherwise appear normal. There is atherosclerotic disease of the left carotid bifurcation and origin of the left internal carotid artery with less than 50 percent focal stenosis by [place] Stroke and Carotid Endarterectomy Trial (NASCET) criteria. The left common and internal carotid arteries otherwise appear normal. The cervical vertebral arteries appear normal. There is atherosclerotic disease involving the distal internal carotid arteries without significant focal stenosis. The anterior and middle cerebral arteries appear normal. The distal vertebral arteries appear normal. The basilar artery and posterior cerebral arteries appear normal with origin of both posterior cerebral arteries. No aneurysms, vascular occlusions, or intracranial stenoses are identified. There is no dural venous sinus thrombosis. IMPRESSION: 1. Ovoid 11 mm focus of hyperattenuation associated with the left frontal lobe suggesting a small parenchymal hemorrhage versus a small vascular malformation which appears unchanged as compared with the prior study. 2. No large arterial occlusions or significant stenoses identified in the head or neck. DICTATION LOCATION: Location [address] ORDERABLES Final Result * (ABNORMAL) COMPREHENSIVE METABOLIC PANEL (02/12/2025 1:41 PM D[employer]AL [employer]) SODIUM 130(L) 136 - 145 mmol/L 02/12/2025 2:33 PM [employer] [facility] - [facility] POTASSIUM 5.0 3.5 - 5.0 mmol/L 02/12/2025 2:33 PM [employer] [facility] - [facility] CHLORIDE 97(L) 98 - 107 mmol/L 02/12/2025 2:33 PM [employer] [facility] - [facility] CO2 23 22 - 29 mmol/L 02/12/2025 2:33 PM [employer] [facility] - [facility] CALCIUM 9.3 8.6 - 10.2 mg/dL 02/12/2025 2:33 PM [employer] LABORAT[facility] SERVICES - . [facility] BUN 25(H) 8 - 23 mg/dL 02/12/2025 2:33 PM [employer] [facility] - [facility] CREATININE 0.95 0.67 - 1.17 mg/dL 02/12/2025 2:33 PM [facility] Comment:The GFR result is no t clinically significant on patients <18 or >70 years of age. GLUCOSE 100(H) 74 - 99 mg/dL 02/12/2025 2:33 PM [facility] TOTAL PROTEIN 7.2 6.7 - 8.6 g/dL 02/12/2025 2:33 PM [facility] ALBUMIN 3.6 3.5 - 5.2 g/dL 02/12/2025 2:33 PM [facility] BILIRUBIN TOTAL 0.5 0.0 - 1.1 mg/dL 02/12/2025 2:33 PM [facility] ALKALINE PHOSPHATASE 69 40 - 129 U/L 02/12/2025 2:33 PM [facility] AST 28 <41 U/L 02/12/2025 2:33 PM [facility] Comment:Hemolysis present. R esult may be falsely elevated. ALT 18 <42 U/L 02/12/2025 2:33 PM [facility] GFR >60 mL/min/1.7 3 sq meter 02/12/2025 2:33 PM [facility] Comment:eGFR calculated with 2020 CKD-EPI equation. Vegetarian diet, extremely high or low muscle mass, and may affect results. Cystatin C with Glomerular Filtration Rate is a suitable alternative for these patients. ANION GAP 10 8 - 16 mmol/L 02/12/2025 2:33 PM [facility] Blood Venipuncture / Unknown 02/12/2025 1:41 PM [employer] 02/12/2025 1:52 PM [facility] - 02/12/2025 2:[address] [facility] Samples containing indocyanine green cause interferences on Total and/or Direct Bilirubin and must not be measured. us Lida Moses MD CHEMISTRY ORDERABLES Final Resul t [facility] CLIA# [id number] [address] [place] [address] * PROTIME-INR (02/12/2025 1:41 PM D[employer]AL [employer]) Pathologist [facility] PROTIME 13.8 12.7 - 15.1 Seconds 02/12/2025 2:18 PM [employer] [facility] INR 1.1 0.9 - 1.1 02/12/2025 2:18 PM [facility] Blood Venipuncture / Unknown 02/12/2025 1:41 PM [employer] 02/12/2025 1:52 PM [employer] Narrative [facility] SERVICES - [facility] - 02/12/2025 2:18 PM [employer] INR Therapeutic Range: Adult: 2.0 - 3.0 for pulmonary embolism or prophylaxis against venous thrombosis or systemic embolization. 2.0 - 3.0 for patients with tissue heart valves. 2.5 - 3.5 for patients with mechanical heart valves or post NC. Pediatric (12 years and under): 1.5 - 3.0 Although the target range in children is not well established, INR values of 1.5 - 3.0 are recommended for most patients. Higher values have been used in children with prosthetic cardiac valves and hereditary clotting disorders. (<3 days) therapeutic ranges have not been established. Lida Moses MD HEMATOLOGY ORDERABLES Final Resu lt [facility] [employer] SERVICES [facility]# [id number] [address] [place] [address] * (ABNORMAL) CBC WITH DIFFERENTIAL (02/12/2025 1:41 PM D[employer]) WBC 9.3 4.0 - 9.8 K/uL 02/12/2025 2:02 PM [facility] SERVICES [facility] RBC 4.88 4.50 - 5.40 M/uL 02/12/2025 2:02 PM [facility] HEMOGLOBIN 14.0 13.6 - 16.5 g/dL 02/12/2025 2:02 PM [employer] [facility] HEMATOCRIT 42.1 40.0 - 48.0 % 02/12/2025 2:02 PM [employer] LABORATORY SERVICES - [facility] MCV 86.3 82.0 - 99.0 fL 02/12/2025 2:02 PM [employer] [facility] SERVICES - . [facility] MCH 28.7 27.2 - 32.6 pg 02/12/2025 2:02 PM [employer] [facility] SERVICES - . [facility] MCHC 33.3 31.5 - 35.5 g/dL 02/12/2025 2:02 PM [employer] [facility] SERVICES - . [facility] RDW 14.4 11.5 - 14.5 % 02/12/2025 2:02 PM [employer] [facility] - [facility] RDW-STDEV 45.3 37.1 - 48.7 fL 02/12/2025 2:02 PM [employer] [facility] - [facility] PLATELETS 153 140 - 350 K/uL 02/12/2025 2:02 PM [employer] [facility] - [facility] MPV 8.8(L) 9.3 - 12.4 fL 02/12/2025 2:02 PM [employer] [facility] SERVICES - . [facility] NEUTROPHILS 80 % 02/12/2025 2:02 PM [employer] [facility]ORY SERVICES - . [facility] LYMPHOCYTES 8 % 02/12/2025 2:02 PM [employer] [facility]ATORY SERVICES - . [facility] MONOCYTES 11 % 02/12/2025 2:02 PM [employer] [facility]ORATORY SERVICES - . [facility] EOSINOPHILS 1 % 02/12/2025 2:02 PM [employer] LABORATORY SERVICES - . [facility] BASOPHILS 0 % 02/12/2025 2:02 PM DENTAL MOLD MAKER [employer] LABORATORY SERVICES - . [facility] IMMATURE GRANULOCYTES 1 % 02/12/2025 2:02 PM DENTAL MOLD MAKER [employer] LABORATORY SERVICES - . [facility] Comment:IG (Immature Granulo cyte) count includes Metamyelocytes, Myelocytes, and Promyelocytes NEUTROPHIL ABSOLUTE 7.38(H) 1.90 - 7.00 K/uL 02/12/2025 2:02 PM DENTAL MOLD MAKER [employer] LABORATORY SERVICES - . [facility] LYMPHOCYTE ABSOLUTE 0.69(L) 0.70 - 4.50 K/uL 02/12/2025 2:02 PM DENTAL MOLD MAKER [employer] LABORATORY SERVICES - . [facility] MONOCYTE ABSOLUTE 1.02 0.10 - 1.30 K/uL 02/12/2025 2:02 PM DENTAL MOLD MAKER [facility] LABORATORY [facility] EOSINOPHIL ABSOLUTE 0.06 0.00 - 0.70 K/uL 02/12/2025 2:02 PM DENTAL MOLD MAKER [facility] LABORATORY [facility] BASOPHILS ABSOLUTE 0.04 0.00 - 0.20 K/uL 02/12/2025 2:02 PM DENTAL MOLD MAKER [facility] LABORATORY [facility] IMMATURE GRANULOCYTES ABSOLUTE 0.07(H) 0.00 - 0.03 K/uL 02/12/2025 2:02 PM DENTAL MOLD MAKER [facility] LABORATORY [facility] Blood Venipuncture / Unknown 02/12/2025 1:41 PM DENTAL MOLD MAKER 02/12/2025 1:52 PM DENTAL MOLD MAKER us Lida Moses MD HEMATOLOGY ORDERABLES Final Resu lt [facility]# [id number] [address] [facility] [place] [address] * Critical Care (02/12/2025 1:22 PM DENTAL MOLD MAKER) Narrative Lida Moses MD - 02/12/2025 1:22 PM DENTAL MOLD MAKER Lida Moses MD 02/13/2025 9:39 AM Critical Care Performed by: Lida Moses MD Authorized by: Lida Moses MD Critical care provider statement: Critical care time (minutes): 35 Critical care time was exclusive of: Separately billable procedures and treating other patients Critical care was necessary to treat or prevent imminent or life-threatening deterioration of the following conditions: Trauma Critical care was time spent personally by me on the following activities: Development of treatment plan with patient or surrogate, evaluation of patient's response to treatment, ordering and performing treatments and interventions, ordering and review of laboratory studies, ordering and review of radiographic studies, pulse oximetry, re-evaluation of patient's condition, review of old charts, examination of patient, obtaining history from patient or surrogate and discussions with consultants I assumed direction of critical care for this patient from another provider in my specialty: no Care discussed with: admitting provider us Lida Moses MD PROCEDURE/MINOR SURGICAL ORDERAB LES Final Result documented in this encounter Visit Diagnoses Diagnosis Closed fracture of multiple ribs of both sides, initial encounter- Primary Brain bleed ([facility]) Intracerebral hemorrhage Multiple closed fractures of ribs of both sides Closed fracture of multiple ribs, unspecified TBI (traumatic brain injury) ([facility]/H[facility]) Intracranial injury of other and unspecified nature, without mention of open intracranial wound, unspecified state of consciousness Closed traumatic compression fracture of thoracic vertebra ([facility]) documented in this encounter Administered Medications Active Administered Medications - up to 3 most recent administrations Medication Order MAR Action Action Date Dose Rate Site acetaminophen (TYLENOL) tablet 650 mg 650 mg, Oral, EVERY 6 HOURS PRN, Starting on Mon02/12/25 at 1741, Until Discontinued, Pain, Routine albuterol (PROVENTIL,VENTOLIN) 2.5 mg /3 mL (0.083 %) inhalation solution 2.5 mg 2.5 mg, Inhalation, EVERY 6 HOURS PRN RESPIRATORY, Starting on Mon02/12/25 at 1740, Until Discontinued, Shortness of Breath, Wheezing, Routine bisacodyL (DULCOLAX) rectal suppository 10 mg 10 mg, Rectal, DAILY PRN, Starting on Mon02/12/25 at 2013, Until Discontinued, Constipation, Routine diclofenac sodium (VOLTAREN) 1 % topical gel 2 Gram 2 Gram, Topical, EVERY 6 HOURS PRN, Starting on Mon02/12/25 at 1739, Until Discontinued, Pain, joint pain, Routine, On hold since Mon02/13/2025 at 0635 until manually unheld docusate sodium (COLACE) capsule 100 mg 100 mg, Oral, TWO TIMES DAILY, First dose on Mon02/12/25 at 2015, Until Discontinued, Routine Given 02/13/2025 5:29 AM DENTAL MOLD MAKER 100 mg levETIRAcetam (KEPPRA) tablet 500 mg 500 mg, Oral, TWO TIMES DAILY, 14 doses, First dose on Mon02/13/25 at 0900, Last dose on Mon02/19/25 at 2100, Routine Given 02/13/2025 8:51 AM DENTAL MOLD MAKER 500 mg Lidocaine 4 % topical patch 2 Patch 2 Patch, Topical, DAILY, 3 doses, First dose on Beata 02/13/25 at 0600, Last dose on Mon02/15/25 at 0600, Routine Applied 02/13/2025 5:31 AM DENTAL MOLD MAKER 2 Patches Chest, Bilateral magnesium HYDROXIDE (MILK OF MAGNESIA) oral suspension 30 mL 30 mL, Oral, DAILY PRN, Starting on Mon02/12/25 at 2012, Until Discontinued, Constipation, Routine methocarbamoL (ROBAXIN) tablet 500 mg 500 mg, Oral, EVERY 6 HOURS, First dose on Mon02/12/25 at 2014, Until Discontinued, Routine Given 02/13/2025 5:29 AM DENTAL MOLD MAKER 500 mg Given 02/12/2025 11:53 PM DENTAL MOLD MAKER 500 mg naloxone (NARCAN) 0.4 mg/mL injection 0.1-0.4 mg 0.1-0.4 mg, IV, SEE ADMIN INSTRUCTIONS, Starting on Mon02/12/25 at 2012, Until Discontinued, Routine ondansetron (ZOFRAN) 4 mg/2 mL injection 4 mg 4 mg, IV, EVERY 6 HOURS PRN, Starting on Mon02/12/25 at 2012, Until Discontinued, Nausea/Emesis, Routine oxyCODONE (ROXICODONE) tablet 5 mg 5 mg, Oral, EVERY 4 HOURS PRN, Starting on Mon02/12/25 at 2012, Until Discontinued, Pain (See admin instructions), Routine oxyCODONE (ROXICODONE) tablet 5 mg 5 mg, Oral, EVERY 4 HOURS PRN, Starting on Mon02/12/25 at 2012, Until Discontinued, Pain (See admin instructions), Routine pantoprazole (PROTONIX) tablet 20 mg 20 mg, Oral, DAILY BEFORE BREAKFAST, First dose on Mon02/13/25 at 0600, Until Discontinued, Routine, Indication: Gastroesophageal reflux disease (GERD) Given 02/13/2025 5:29 AM DENTAL MOLD MAKER 20 mg polyethylene glycol (MIRALAX) packet 17 Gram 17 Gram, Oral, DAILY, First dose on Mon02/13/25 at 0600, Until Discontinued, Routine pravastatin (PRAVACHOL) tablet 10 mg 10 mg, Oral, DAILY AT BEDTIME, First dose on Mon02/13/25 at 0030, Until Discontinued, Routine, Previous Med: pravastatin (PRAVACHOL) 20 mg tablet - Orig Sig - 10 mg. Given 02/13/2025 1:14 AM DENTAL MOLD MAKER 10 mg Inactive Administered Medications - up to 3 most recent administrations Medication Order MAR Action Action Date Dose Rate Site iopamidoL (ISOVUE-300) 61% injection (drawn from multi-use bulk pack) 85 mL 85 mL, IV, INTRA-PROCEDURE ONCE, 1 dose, Starting on Mon02/12/25 at 1904, Until Mon02/12/25 at 1904, Routine Contrast Given 02/12/2025 7:04 PM DENTAL MOLD MAKER 85 mL levETIRAcetam (KEPPRA) 500 mg/5 mL injection 1,000 mg 1,000 mg, IV, ONE TIME ONLY, 1 dose, On Mon02/12/25 at 2014, Routine Given 02/12/2025 9:26 PM DENTAL MOLD MAKER 1,000 mg morphine 4 mg/mL injection 4 mg 4 mg, IV, ONE TIME ONLY, 1 dose, On Mon02/12/25 at 1430, Routine Given 02/12/2025 2:32 PM DENTAL MOLD MAKER 4 mg documented in this encounter Active and Recently Administered Medications Times are shown in DENTAL MOLD MAKER. Scheduled Medication Order 02/11/2025 02/12/2025 02/13/2025 docusate sodium (COLACE) capsule 100 mg 100 mg, Oral, TWO TIMES DAILY, First dose on Mon02/12/25 at 2014, Until Discontinued, Routine 2014 (Not Given - Provider: Benjamin Guillaume RN - Reason: Other - See Comment) 0529 (Given - Provider: Benjamin Guillaume RN)1800 (Due) iopamidoL (ISOVUE-300) 61% injection (drawn from multi-use bulk pack) 85 mL (COMPLETED) 85 mL, IV, INTRA-PROCEDURE ONCE, 1 dose, Starting on Mon02/12/25 at 1904, Until Mon02/12/25 at 1904, Routine 190 (Contrast Given - Provider: Anna Ward, RT) levETIRAcetam (KEPPRA) 500 mg/5 mL injection 1,000 mg (COMPLETED) 1,000 mg, IV, ONE TIME ONLY, 1 dose, On Mon02/12/25 at 2014, Routine 2125 (Given - Provider: Linda Alas, FRANKY) levETIRAcetam (KEPPRA) tablet 500 mg 500 mg, Oral, TWO TIMES DAILY, 14 doses, First dose on Mon02/13/25 at 0900, Last dose on Mon02/19/25 at 2100, Routine 0851 (Given - Provider: Kim Sanchez RN)2100 (Due) Lidocaine 4 % topical patch 2 Patch 2 Patch, Topical, DAILY, 3 doses, First dose on Beata 02/13/25 at 0600, Last dose on 02/15/25 at 0600, Routine 0531 (Applied - Provider: Benjamin Guillaume RN)1731 (Due: Removed - Provider: Benjamin Guillaume RN) methocarbamoL (ROBAXIN) tablet 500 mg 500 mg, Oral, EVERY 6 HOURS, First dose on Mon02/12/25 at 2014, Until Discontinued, Routine 2014 (Not Given - Provider: Benjamin Guillaume RN - Reason: Other - See Comment)2353 (Given - Provider: Benjamin Guillaume RN) 0529 (Given - Provider: Benjamin Guillaume RN)1200 (Due)1800 (Due) morphine 4 mg/mL injection 4 mg (COMPLETED) 4 mg, IV, ONE TIME ONLY, 1 dose, On Mon02/12/25 at 1430, Routine 1432 (Given - Provider: Jodi Hernandez RN) naloxone (NARCAN) 0.4 mg/mL injection 0.1-0.4 mg 0.1-0.4 mg, IV, SEE ADMIN INSTRUCTIONS, Starting on Mon02/12/25 at 2013, Until Discontinued, Routine pantoprazole (PROTONIX) tablet 20 mg 20 mg, Oral, DAILY BEFORE BREAKFAST, First dose on Beata 02/13/25 at 0600, Until Discontinued, Routine, Indication: Gastroesophageal reflux disease (GERD) 0529 (Given - Provider: Benjamin Guillaume RN) polyethylene glycol (MIRALAX) packet 17 Gram 17 Gram, Oral, DAILY, First dose on Beata 02/13/25 at 0600, Until Discontinued, Routine 0530 (Refused - Provider: Benjamin Guillaume RN) pravastatin (PRAVACHOL) tablet 10 mg 10 mg, Oral, DAILY AT BEDTIME, First dose on Beata 02/13/25 at 0030, Until Discontinued, Routine, Previous Med: pravastatin (PRAVACHOL) 20 mg tablet - Orig Sig - 10 mg. 0114 (Given - Provider: Benjamin Guillaume RN)2100 (Due) PRN Medication Order 02/11/2025 02/12/2025 02/13/2025 acetaminophen (TYLENOL) tablet 650 mg 650 mg, Oral, EVERY 6 HOURS PRN, Starting on Mon02/12/25 at 1741, Until Discontinued, Pain, Routine 2350 ([facility] - Provider: Benjamin Guillaume RN) albuterol (PROVENTIL,VENTOLIN) 2.5 mg /3 mL (0.083 %) inhalation solution 2.5 mg 2.5 mg, Inhalation, EVERY 6 HOURS PRN RESPIRATORY, Starting on Mon02/12/25 at 1740, Until Discontinued, Shortness of Breath, Wheezing, Routine bisacodyL (DULCOLAX) rectal suppository 10 mg 10 mg, Rectal, DAILY PRN, Starting on Mon02/12/25 at 2012, Until Discontinued, Constipation, Routine diclofenac sodium (VOLTAREN) 1 % topical gel 2 Gram 2 Gram, Topical, EVERY 6 HOURS PRN, Starting on Mon02/12/25 at 1739, Until Discontinued, Pain, joint pain, Routine, On hold since [facility] 02/13/2025 at 0635 until manually unheld 0635 (Held by Provid er - Provider: Cathryn Quesada PA-C - Reason: Other - See Comment) magnesium HYDROXIDE (MILK OF MAGNESIA) oral suspension 30 mL 30 mL, Oral, DAILY PRN, Starting on Mon02/12/25 at 2012, Until Discontinued, Constipation, Routine ondansetron (ZOFRAN) 4 mg/2 mL injection 4 mg 4 mg, IV, EVERY 6 HOURS PRN, Starting on Mon02/12/25 at 2012, Until Discontinued, Nausea/Emesis, Routine oxyCODONE (ROXICODONE) tablet 5 mg 5 mg, Oral, EVERY 4 HOURS PRN, Starting on Mon02/12/25 at 2012, Until Discontinued, Pain (See admin instructions), Routine oxyCODONE (ROXICODONE) tablet 5 mg 5 mg, Oral, EVERY 4 HOURS PRN, Starting on Mon02/12/25 at 2012, Until Discontinued, Pain (See admin instructions), Routine documented in this encounter Care Teams Outside Sales Advertising Executive Relationship Specialty Start Date End Date Lucila Gomez MD [address] [place] [id number] PCP - General Family Practice 12/14/22 documented as of this encounter
--- OUTSIDE RECORDS SUMMARY | 2025-02-13 10:19 | XMS_ITS | Clinical Summary ---
Author Organization [facility] Address [address] [place] [address] Care Team Providers Care Candy Separator Enrobing Name Role Phone Lucila Gomez MD Unavailable Source Comments [facility],non-owned Affiliates and Associated Physician Practices is amultiple site organization consisting of ambulatory clinics and hospital sitesin [place], [place] and [place]. This disclosure is being madepursuant to the Care Everywhere program and may not contain all information available regarding this patient. Last updated 17.[facility] [employer] Allergies No known active allergies Medications * [...] +D PO) Take by mouth daily. Active [place]-3 Fatty Acids (OMEGA 3 PO) Take by [...] on file Legal Sex Male 9:36 AM PLANT TOUR GUIDE Gender Identity Not on file Sexual Orientation Not on file Last Filed Vital Signs Vital Sign Reading Time Taken Comments Blood Pressure - - Pulse - - Temperature - - Respiratory Rate - - Oxygen Saturation - - Inhaled Oxygen Concentration - - Weight 83.9 kg (185 lb) 03/03/2010 11:05 AM PLANT TOUR GUIDE Height 182.9 cm (6') 03/03/2010 11:05 AM PLANT TOUR GUIDE Body Mass Index 25.09 03/03/2010 11:05 AM PLANT TOUR GUIDE Plan of Treatment Health Maintenance Due Date Last Done Comments MEDICARE AWV 12 MONTHS 1937 DTAP/TDAP/TD VACCINES (1 - Tdap) 1956 PNEUMOCOCCAL VACCINE 50+ (1 of 1 - PCV) 1987 ZOSTER VACCINE (1 of 2) 1987 Respiratory Syncytial Virus (RSV) Vaccine Pt: or over 60 yrs (1 - 1-dose 75+ series) 2012 DEPRESSION SCREENING 04/10/2024 COVID-19 VACCINE ( - 2023-2 5 season) 2024 INFLUENZA VACCINE (#1) 2024 HEPATITIS B VACCINE [...] this topic Insurance MEDICARE MEDICARE Care Teams Candy Separator Enrobing Relationship Specialty Start Date End Date Lucila Gomez MD [address] [place] [address] Family Medicine 03/03/10
--- OUTSIDE RECORDS SUMMARY | 2025-02-13 10:19 | XMS_ITS | Clinical Summary ---
Author Organization [facility] Address [address] [place] [address] Care Team Providers Care Wool Mixer Name Role Phone Lucila Gomez MD Primary Care Provider [phone] Allergies No known active allergies Medications albuterol sulfate HFA 90 mcg/actuation aerosol inhaler INHALE 2 PUFFS BY ORAL INHALATION FOUR TIMES A DAY NEEDED FOR COPD SHAKE WELL. RINSE MOUTHPIECE FREQUENTLY TO PREVENT CLOGGING. 08/25/19 23 Suspended budesonide-gly copyr-formoter ol 160-9-4.8 mcg/actuation HFA Aerosol Inhaler INHALE 2 PUFFS INHALATION TWICE A DAY DIRECTED FOR BREATHING (CLEAN INHALER FOLLOWED BY 2 PRIMING PUFFS ONCE WEEKLY) 01/26/20 22 Suspended etanercept (ENBREL) 25 mg/0.5 mL (0.5) Syringe INJECT 25 MG/0.5 ML UNDER THE SKIN EVERY OTHER WEEK *KEEP IN REFRIGERATOR* 10/10/19 23 Suspended pravastatin (PRAVACHOL) 20 mg tablet 10 mg. 01/20/20 22 Suspended acetaminophen (TYLENOL ARTHRITIS) 650 mg Extended Release tablet Take 650 mg by mouth every 6 hours as needed for Pain. Suspended diclofenac sodium (VOLTAREN) 1 % gel Apply to affected area 4 times daily. Suspended dexAMETHasone (DECADRON) 4 mg tablet Take 2 Tablets (8 mg) by mouth one time for 1 dose. Take in the morning on day of scheduled brain radiation with food. 2 Tablet 09/01/19 24 Suspended ondansetron (ZOFRAN ODT) 8 mg Tablet, Rapid DissolveIndica tions:Small cell lung cancer (CMS/HCC) Dissolve 1 tablet on top of tongue then swallow with saliva every 8 hours as needed for nausea or vomiting 30 Tablet 1 09/27/19 24 025 Discontinued (Reorder) diphenoxylate- atropine 2.5 mg-0.025 mg tablet Take 1 Tablet by mouth 4 times daily as needed for Diarrhea/Loose Stools. 30 Tablet 01/05/20 24 Suspended ferrous sulfate 325 mg (65 mg iron) tablet Take 325 mg by mouth daily. Suspended cyanocobalamin 1,000 mcg Tablet Take 1,000 mcg by mouth daily. Suspended pantoprazole (PROTONIX) 20 mg Tablet, Delayed Release (E.C.) Take 20 mg by mouth daily. Suspended ondansetron (ZOFRAN ODT) 8 mg Tablet, Rapid DissolveIndica tions:Small cell lung cancer (CMS/HCC) Dissolve 1 tablet on top of tongue then swallow with saliva every 8 hours as needed for nausea or vomiting 30 Tablet 1 02/12/20 25 Suspended Active Problems Problem Noted Date Diagnosed Date Multiple closed fractures of ribs of both sides 02/12/2025 TBI (traumatic brain injury) 02/12/2025 Closed traumatic compression fracture of thoraci c vertebra 02/12/2025 Protein-calorie malnutrition, moderate Tension pneumothorax 10/31/2024 COPD (chronic obstructive pulmonary disease) Hyperlipidemia 10/31/2024 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 Gastroesophageal reflux dise ase with esophagitis without hemorrhage 10/31/2024 Encounters Date Type Department Care Team Description 02/12/2025 1:22 PM [facility] - Present Hospital Encounter [facility] [address] [place] [id number] Hai Mendez MD Demeo, Amanda, MD Demeo, Jimmy, DO Wang, Chen, MD Jensen, Abbie May, MD Multiple closed fractures of ribs of both sides 02/12/2025 Travel 02/11/2025 Refill [facility] [place] [address] [place] [phone] Shawn Burnham MD Small cell lung cancer (CMS/HCC) 02/04/2025 4:30 PM CDT Telephone Check Up [facility] [place] [address] [place] [phone] Shawn Burnham MD 02/03/2025 Orders Only [facility] [place] [address] [place] [address] Shawn Burnham MD Small cell carcinoma of lung, unspecified laterality, unspecified part of lung (CMS/HCC) 01/28/2025 External Device Data STL ABSTRACTION Provider, Abstract 01/23/2025 Orders Only [facility] [place] [address] [place] [phone] Shawn Burnham MD 01/21/2025 Orders Only [facility] [place] [address] [place] [phone] Shawn Burnham MD 01/20/2025 9:15 AM CDT Office Visit [facility] [place] [address] [place] [address] Shawn Burnham MD Small cell carcinoma of lung, unspecified laterality, unspecified part of lung (CMS/HCC) 01/07/2025 External Device Data STL ABSTRACTION Provider, Abstract 01/06/2025 Orders Only [facility] [place] [address] [place] [address] Shawn Burnham MD Small cell carcinoma of lung, unspecified laterality, unspecified part of lung (CMS/HCC) 12/24/2024 External Device Data STL ABSTRACTION Provider, Abstract 12/23/2024 Orders Only [facility] [place] [address] [place] [address] Shawn Burnham MD Small cell carcinoma of lung, unspecified laterality, unspecified part of lung (CMS/HCC) 12/09/2024 Orders Only [facility] [place] [address] [place] [address] Shawn Burnham MD Small cell carcinoma of lung, unspecified laterality, unspecified part of lung (CMS/HCC) 12/03/2024 External Device Data STL ABSTRACTION Provider, Abstract 12/03/2024 External Device Data STL ABSTRACTION Provider, Abstract 11/25/2024 Orders Only [facility] [place] [address] [place] [address] Shawn Burnham MD Small cell carcinoma of lung, unspecified laterality, unspecified part of lung (CMS/HCC) 11/19/2024 Orders Only [facility] [place] [address] [place] [address] Shawn Burnham MD 11/18/2024 10:00 AM CDT [facility] [address] [place] [address] Shawn Burnham MD Small cell carcinoma of [...] Comments Blood Pressure 105/61 02/13/2025 10:00 AM [facility] Pulse 92 02/13/2025 10:00 AM [facility] Temperature 36.2 C (97.2 F) 02/13/2025 8:00 AM [facility]OSS Respiratory Rate 18 02/13/2025 10:00 AM [facility]OSS Oxygen Saturation 90% 02/13/2025 10:00 AM [facility]OSS Inhaled Oxygen Concentration - - Weight 84.5 kg (186 lb 4.8 oz) 02/12/2025 8:15 P M [facility] Height 177.8 cm (5' 10) 02/12/2025 1:28 PM [facility] Body Mass Index 26.73 02/12/2025 1:28 PM [facility]OSS Plan of Treatment Upcoming Encounters Date Type Department Care Team (Late st Contact Info) Description 03/05/2025 9:00 AM [facility] [place] [address] [address] [place] [address] Shawn Burnham MD [address] [place] [address] [employer] [address] [place] [phone] 03/24/2025 9:15 AM [facility] Office Visit [facility] [place] [address] [address] [place] [address] Shawn Burnham MD [address] [place] [address] [place] [phone] Health Maintenance Due Date Last Done Comments Traditional Medicare (ACO) A nnual Wellness Visit 1954 RSV VACCINE (60+ or ) (1 - 1-dose 75+ series) 2012 PNEUMOCOCCAL VACCINE 50+ YEA RS (2 of 2 - PPSV23, PCV20, or PCV21) 05/26/2015 03/31/2015, 09/06/2011 , 06/21/2002 COVID-19 Vaccine (2024-2 6 season) 2024 01/09/2023, 01/19/2022, 01/19/2021, Additional history exists DTAP/TDAP/TD VACCINES (3 - T d or Tdap) 11/30/2025 12/01/2015, 04/10/2006 ZOSTER VACCINE Completed 05/25/2021, 03/24/2021 INFLUENZA VACCINE Completed 01/06/2025, , 01/09/2023, Additional history exists Procedures * The patient is currently admitted. The information in this section might not be complete until the patient is discharged. Procedure Name Priority Date/Time Associated Diagnosis Comments CALCIUM IONIZED Stat 02/13/2025 5:33 AM [facility]OSS CBC WITH DIFFERENTIAL Routine 02/13/2025 5:33 AM [facility] MRI THORACIC WO CONTRAST Stat 025 4:26 AM [facility] MRI BRAIN WO + MRA BRAIN WO Stat 02/13/2025 3:56 AM [facility]OSS BASIC METABOLIC PANEL Stat 02/13/2025 2:29 AM [facility] MAGNESIUM LEVEL Routine 02/13/2025 2:29 AM [facility] PHOSPHORUS Routine 02/13/2025 2:[address] HEAD WO CONTRAST Routine 02/13/2025 2 :13 AM [facility] POC GLUCOSE Routine 02/12/2025 11:[address] CHEST ABDOMEN PELVIS W CONT Stat 02/12/2025 7:[address] 2D RECONSTRUCTION Stat 02/12/2025 7:05 PM [facility] CTA HEAD AND NECK W AND/OR WO CONTRAST Stat 02/12/2025 7:04 PM [facility]OSS COMPREHENSIVE METABOLIC PANEL Stat 02/12/2025 1:41 PM [facility] PROTIME-INR Stat 02/12/2025 1:41 PM [facility] CBC WITH DIFFERENTIAL Stat 02/12/2025 1:41 PM [facility] CRITICAL CARE Routine 02/12/2025 1:22 PM [facility] COMPREHENSIVE METABOLIC PANEL Routine 01/16/2025 3:31 PM CDT CBC WITH AUTODIFFERENTIAL Routine 01/16/2025 2:[address] CHEST W CONTRAST Routine 01/16/2025 2 :38 PM CDT BASIC METABOLIC PANEL Routine 11/18/2024 12:17 PM CDT COMPREHENSIVE METABOLIC PANEL Routine 11/18/2024 11:35 AM CDT from Last 3 Months Results * (ABNORMAL) CBC WITH DIFFERENTIAL (02/13/2025 5:33 AM SA[facility] BOSS) Only the most recent of2 resultswithin the time period is included. WBC 7.3 4.0 - 9.8 K/uL 02/13/2025 6:05 AM [facility]OSS [employer] [facility] RBC 4.34(L) 4.50 - 5.40 M/uL 02/13/2025 6:05 AM [facility] [employer] [facility] HEMOGLOBIN 12.6(L) 13.6 - 16.5 g/dL 02/13/2025 6:05 AM [facility] [employer] [facility] HEMATOCRIT 37.9(L) 40.0 - 48.0 % 02/13/2025 6:05 AM [facility] [employer] [facility] MCV 87.3 82.0 - 99.0 fL 02/13/2025 6:05 AM [facility] [employer] [facility] MCH 29.0 27.2 - 32.6 pg 02/13/2025 6:05 AM [facility] [employer] [facility] MCHC 33.2 31.5 - 35.5 g/dL 02/13/2025 6:05 AM [facility] [employer] LAB[facility]ATORY [facility] RDW 14.5 11.5 - 14.5 % 02/13/2025 6:05 AM [facility] [employer] [facility] RDW-STDEV 46.5 37.1 - 48.7 fL 02/13/2025 6:05 AM [facility] [employer] [facility] PLATELETS 145 140 - 350 K/uL 02/13/2025 6:05 AM [facility] [employer] [facility] MPV 9.4 9.3 - 12.4 fL 02/13/2025 6:05 AM [facility] [employer] [facility] NEUTROPHILS 71 % 02/13/2025 6:05 AM [facility] [employer] [facility] LYMPHOCYTES 12 % 02/13/2025 6:05 AM [facility] [employer] [facility] MONOCYTES 14 % 02/13/2025 6:05 AM [facility] [employer] [facility] EOSINOPHILS 2 % 02/13/2025 6:05 AM [facility] [employer] [facility] BASOPHILS 1 % 02/13/2025 6:05 AM [facility] IMMATURE GRANULOCYTES 0 % 02/13/2025 6:05 AM [facility] [employer] [facility] NEUTROPHIL ABSOLUTE 5.24 1.90 - 7.00 K/uL 02/13/2025 6:05 AM [facility] [employer] [facility] LYMPHOCYTE ABSOLUTE 0.85 0.70 - 4.50 K/uL 02/13/2025 6:05 AM [facility] [employer] [facility] MONOCYTE ABSOLUTE 1.03 0.10 - 1.30 K/uL 02/13/2025 6:05 AM [facility] [employer] [facility] EOSINOPHIL ABSOLUTE 0.13 0.00 - 0.70 K/uL 02/13/2025 6:05 AM [facility] BASOPHILS ABSOLUTE 0.05 0.00 - 0.20 K/uL 02/13/2025 6:05 AM [facility] [employer] [facility] IMMATURE GRANULOCYTES ABSOLUTE 0.03 0.00 - 0.03 K/uL 02/13/2025 6:05 AM [facility] Blood Venipuncture / Unknown 02/13/2025 5:33 AM [facility]OSS 02/13/2025 5:42 AM [facility] Cathryn Quesada PA-C HEMATOLOGY ORDERABLES [place] Result [employer] [facility] CLIA# [id number] [address] [place] [address] * (ABNORMAL) CALCIUM IONIZED (02/13/2025 5:33 AM SAW BOSS) PH, VENOUS 7.40 7.32 - 7.43 02/13/2025 5:55 AM [facility] CALCIUM IONIZED 4.5(L) 4.8 - 5.2 mg/dL 02/13/2025 5:55 AM [facility] LABORATORY [facility] Blood Venipuncture / Unknown 02/13/2025 5:33 AM [facility]OSS 02/13/2025 5:42 AM [facility]OSS us Coby FULLER CHEMISTRY ORDERABLES Final Resu lt [facility] [employer] [facility] [id number] [address] [place] [address] * MRI THORACIC WO CONTRAST (02/13/2025 4:26 AM SAW BOSS) Anatomical Region Laterality Modality Spine Magnetic Resonan ce 02/13/2025 4:26 AM [facility]OSS Impressions 02/13/2025 7:25 AM [facility]OSS IMPRESSION: 1. Acute appearing mild T1 and T3 wedge compression fractures. 2. Subtle edema of T2, which may reflect a subtle recent fracture. 3. Edema of C6 and C7, degenerative versus posttraumatic. 4. Chronic mild T12 and severe L1 wedge compression deformities. 5. No significant spinal canal or neuroforaminal stenosis. DICTATION LOCATION: Location 1 - [facility] Narrative 02/13/2025 7:25 AM [facility] BOSS MRI THORACIC WO CONTRAST DATE: 02/13/2025 4:26 [...] greater than left lung bases. Procedure Note FabioJuan M, DO - 02/13/2025 MRI THORACIC WO CONTRAST [...] neuroforaminal stenosis. DICTATION LOCATION: Location 1 - [facility] us Cathryn Quesada PA-C MR ORDERABLES Final Resu lt * MRI BRAIN WO + MRA BRAIN WO (02/13/2025 3:56 AM [facility]W BOSS) Anatomical Region Laterality Modality Head Magnetic Resonan ce 02/13/2025 4:16 AM [facility] Impressions 02/13/2025 8:01 AM [facility] IMPRESSION: MRI Brain: 1. No acute intracranial [...] vascular malformation. DICTATION LOCATION: Location 1 - [facility] 02/13/2025 8:01 AM [facility] BOSS MRI BRAIN WO + MRA BRAIN WO DATE: 02/13/2025 3:56 AM CLINICAL INDICATION: 11 mm IPH vs vascular malformation. COMPARISON: Multiple CTs, most recent performed concurrently. TECHNIQUE: Multiplanar, multisequence MRI of the brain was performed without intravenous contrast. Noncontrast MRA of the head was performed utilizing 3-D oape-kg-pesbjl technique. Multiple MIP images were generated. FINDINGS: [...] internal carotid arteries. disposition of the left RN ENDOCRINOLOGY. The proximal anterior, middle and posterior cerebral arteries are patent bilaterally. Evaluation of the posterior circulation demonstrates normal vertebrobasilar system. No evidence of critical stenosis, occlusion, aneurysm or high flow vascular malformation. Procedure Note Juan M Mccarthy DO - 02/13/2025 MRI BRAIN WO + MRA BRAIN WO DATE: 02/13/2025 3:56 AM CLINICAL INDICATION: 11 mm IPH vs vascular malformation. COMPARISON: Multiple CTs, most recent performed concurrently. TECHNIQUE: Multiplanar, multisequence MRI of the brain was performed without intravenous contrast. Noncontrast MRA of the head was performed utilizing 3-D ivmt-or-ccpadl technique. Multiple MIP images were generated. FINDINGS: [...] internal carotid arteries. disposition of the left RN ENDOCRINOLOGY. The proximal anterior, middle and posterior cerebral [...] vascular malformation. DICTATION LOCATION: Location 1 - [facility] Deepthi Angel NP MR ORDERABLES Final Result * PHOSPHORUS (02/13/2025 2:29 AM SAW BOSS) PHOSPHORUS 2.9 2.5 - 4.5 mg/dL 02/13/2025 3:51 AM SAW BOSS [employer] [facility] Blood Venipuncture / Unknown 02/13/2025 2:29 AM [facility] BOSS 02/13/2025 2:36 AM [facility] Cathryn Quesada PA-C CHEMISTRY ORDERABLES Final Result Performing Organization Address [facility] Co de Phone Number [facility] [id number] [address] [place] [address] * MAGNESIUM LEVEL (02/13/2025 2:29 AM SAW BOSS) Pathologist [facility] MAGNESIUM 1.8 1.6 - 2.4 mg/dL 02/13/2025 3:51 AM [facility] [employer] [facility]AT[facility] Blood Venipuncture / Unknown 02/13/2025 2:29 AM [facility] BOSS 02/13/2025 2:36 AM [facility] Cathryn Quesada PA-C CHEMISTRY ORDERABLES Final Result Performing Organization Address [facility] Co de Phone Number [facility] [id number] [facility] [place] [address] * (ABNORMAL) BASIC METABOLIC PANEL (02/13/2025 2:29 AM [facility]OSS) Only the most recent of2 resultswithin the time period is included. SODIUM 140 136 - 145 mmol/L 02/13/2025 3:51 AM SA[facility] BOSS [employer] [facility] - . [facility] POTASSIUM 3.8 3.5 - 5.0 mmol/L 02/13/2025 3:51 AM SA[facility] [employer] [facility] - . [facility] CHLORIDE 104 98 - 107 mmol/L 02/13/2025 3:51 AM [facility] [employer] [facility] - . [facility] CO2 22 22 - 29 mmol/L 02/13/2025 3:51 AM [facility] [employer] [facility] - . [facility] CALCIUM 7.6(L) 8.6 - 10.2 mg/dL 02/13/2025 3:51 AM [facility] Comment:Significant change f rom prior result, correlate clinically and redraw if necessary. BUN 23 8 - 23 mg/dL 02/13/2025 3:51 AM [facility] CREATININE 0.81 0.67 - 1.17 mg/dL 02/13/2025 3:51 AM [facility] Comment:The GFR result is no t clinically significant on patients <18 or >70 years of age. GLUCOSE 91 74 - 99 mg/dL 02/13/2025 3:51 AM [facility] GFR >60 mL/min/1.7 3 sq meter 02/13/2025 3:51 AM [facility] Comment:eGFR calculated with 2020 CKD-EPI equation. Vegetarian diet, extremely high or low muscle mass, and may affect results. Cystatin C with Glomerular Filtration Rate is a suitable alternative for these patients. ANION GAP 14 8 - 16 mmol/L 02/13/2025 3:51 AM [facility] Blood Venipuncture / Unknown 02/13/2025 2:29 AM [facility]OSS 02/13/2025 2:36 AM [facility]OSS us Coby FULLER CHEMISTRY ORDERABLES Final Resu lt [facility]# [id number] [address] [facility] [facility] [place] [address] * CT HEAD WO CONTRAST (02/13/2025 2:13 AM SAW BOSS) Anatomical Region Laterality Modality Head Computed Tomogra phy 02/13/2025 2:05 AM [facility] BOSS Impressions 02/13/2025 8:11 AM [facility]OSS IMPRESSION: 1. Multiple enhancing lesions suspicious for metastatic disease. Postcontrast MRI of the brain is recommended for further evaluation. 2. No acute intracranial hemorrhage or displaced skull fracture. DICTATION LOCATION: Location 1 - [facility] Narrative 02/13/2025 8:[address] HEAD WO CONTRAST DATE: 02/13/2025 2:13 [...] calvarium appears intact. Procedure Note Juan M Mccarthy, DO - 02/13/2025 CT HEAD WO CONTRAST [...] skull fracture. DICTATION LOCATION: Location 1 - [facility] Cathryn Quesada PA-C CT ORDERABLES Final Resu lt * (ABNORMAL) POC GLUCOSE (02/12/2025 11:05 PM SAW BOSS) GLUCOSE POC 105(H) 74 - 99 mg/dL 02/12/2025 11:05 PM [facility] SPECIMEN SOURCE, GLUCOSE POC Whole Blood 02/12/2025 11:05 PM [facility] LABORATORY [facility] COMMENT, GLU POC Alerted Nurse/FAHAD/D r 02/12/2025 11:05 PM [facility] Blood, whole 02/12/2025 11:0 5 PM SAW BOSS 02/12/2025 11:13 PM [facility] Dafne Dumont MD POINT OF CARE TESTING Final Resu lt [facility]# [id number] [address] [facility] [place] [address] * CT CHEST ABDOMEN PELVIS W CONT (02/12/2025 7:05 PM SAW BOSS) Anatomical Region Laterality Modality Chest Computed Tomogra phy 02/12/2025 6:54 PM [facility]OSS Impressions 02/12/2025 7:51 PM [facility] IMPRESSION: 1. Nondisplaced fracture of the bilateral [...] evidence of diverticulitis. DICTATION LOCATION: Location 1 [facility] 02/12/2025 7:[address] CHEST ABDOMEN PELVIS W CONT INDICATION: [...] evidence of diverticulitis. DICTATION LOCATION: Location 1 [facility] Lida Moses MD CT ORDERABLES Final Result * CT 2D RECONSTRUCTION (02/12/2025 7:05 PM SAW BOSS) Anatomical Region Laterality Modality Computed Tomogra phy 02/12/2025 6:54 PM [facility]OSS Impressions 02/12/2025 7:19 PM [facility] BOSS Impression: 1. Age-indeterminate compression fractures of T1 and T3. 2. Chronic appearing compression fracture of L1. 3. No acute cervical or lumbar spine fracture. DICTATION LOCATION: Location 4 Narrative 02/12/2025 7:[address] 2D RECONSTRUCTION 02/12/2025 7:05 PM Indication: [...] W AND/OR WO CONTRAST (02/12/2025 7:04 PM SAW BOSS) Anatomical Region Laterality Modality Head Computed Tomogra phy 02/12/2025 7:04 PM [facility] BOSS Impressions 02/12/2025 7:14 PM [facility]OSS IMPRESSION: 1. Ovoid 11 mm focus of hyperattenuation associated with the left frontal lobe suggesting a small parenchymal hemorrhage versus a small vascular malformation which appears unchanged as compared with the prior study. 2. No large arterial occlusions or significant stenoses identified in the head or neck. DICTATION LOCATION: Location 4 Narrative 02/12/2025 7:14 PM SAW BOSS EXAMINATION: CTA HEAD AND NECK W AND/OR [...] than 50 percent focal stenosis by [place] Stroke and Carotid Endarterectomy Trial (NASCET) criteria. The right common and internal carotid arteries otherwise appear normal. There is atherosclerotic disease of the left carotid bifurcation and origin of the left internal carotid artery with less than 50 percent focal stenosis by [place] Stroke and Carotid Endarterectomy Trial (NASCET) criteria. [...] than 50 percent focal stenosis by [place] Stroke and Carotid Endarterectomy Trial (NASCET) criteria. The right common and internal carotid arteries otherwise appear normal. There is atherosclerotic disease of the left carotid bifurcation and origin of the left internal carotid artery with less than 50 percent focal stenosis by [place] Stroke and Carotid Endarterectomy Trial (NASCET) criteria. [...] Moses MD CT ORDERABLES Final Result * PROTIME-INR (02/12/2025 1:41 PM SAW BOSS) PROTIME 13.8 12.7 - 15.1 Seconds 02/12/2025 2:18 PM SA[facility]OSS [facility] LABORATORY [facility] INR 1.1 0.9 - 1.1 02/12/2025 2:18 PM SAW BOSS [facility] [employer] [facility] Blood Venipuncture / Unknown 02/12/2025 1:41 PM SAW BOSS 02/12/2025 1:52 PM SAW BOSS Narrative [facility] LABORATORY [facility] - 02/12/2025 2:18 PM SAW BOSS INR Therapeutic Range: Adult: 2.0 - 3.0 for pulmonary embolism or prophylaxis against venous thrombosis or systemic embolization. 2.0 - 3.0 for patients with tissue heart valves. 2.5 - 3.5 for patients with mechanical heart valves or post [place]. Pediatric (12 years and under): 1.5 - 3.0 Although the target range in children is not well established, INR values of 1.5 - 3.0 are recommended for most patients. Higher values have been used in children with prosthetic cardiac valves and hereditary clotting disorders. (<3 days) therapeutic ranges have not been established. Lida Moses MD HEMATOLOGY ORDERABLES Final Resu lt [facility] [employer] [facility]# [id number] [address] [facility] [address] [place] [address] * (ABNORMAL) COMPREHENSIVE METABOLIC PANEL (02/12/2025 1:41 PM [facility]) Only the most recent of3 resultswithin the time period is included. SODIUM 130(L) 136 - 145 mmol/L 02/12/2025 2:33 PM [facility] LABORAT[facility] POTASSIUM 5.0 3.5 - 5.0 mmol/L 02/12/2025 2:33 PM [facility] CHLORIDE 97(L) 98 - 107 mmol/L 02/12/2025 2:33 PM [facility]AT[facility] CO2 23 22 - 29 mmol/L 02/12/2025 2:33 PM [facility] [facility] CALCIUM 9.3 8.6 - 10.2 mg/dL 02/12/2025 2:33 PM [facility] BUN 25(H) 8 - 23 mg/dL 02/12/2025 2:33 PM [facility] CREATININE 0.95 0.67 - 1.17 mg/dL 02/12/2025 2:33 PM [facility] Comment:The GFR result is no t clinically significant on patients <18 or >70 years of age. GLUCOSE 100(H) 74 - 99 mg/dL 02/12/2025 2:33 PM [facility] TOTAL PROTEIN 7.2 6.7 - 8.6 g/dL 02/12/2025 2:33 PM [facility] ALBUMIN 3.6 3.5 - 5.2 g/dL 02/12/2025 2:33 PM [facility] BILIRUBIN TOTAL 0.5 0.0 - 1.1 mg/dL 02/12/2025 2:33 PM [facility] ALKALINE PHOSPHATASE 69 40 - 129 U/L 02/12/2025 2:33 PM [facility] AST 28 <41 U/L 02/12/2025 2:33 PM [facility] Comment:Hemolysis present. R esult may be falsely elevated. ALT 18 <42 U/L 02/12/2025 2:33 PM [facility] GFR >60 mL/min/1.7 3 sq meter 02/12/2025 2:33 PM [facility] Comment:eGFR calculated with 2020 CKD-EPI equation. Vegetarian diet, extremely high or low muscle mass, and may affect results. Cystatin C with Glomerular Filtration Rate is a suitable alternative for these patients. ANION GAP 10 8 - 16 mmol/L 02/12/2025 2:33 PM [facility] Blood Venipuncture / Unknown 02/12/2025 1:41 PM [facility] 02/12/2025 1:52 PM [facility] Narrative [facility] - 02/12/2025 2:33 PM [facility] Samples containing indocyanine green cause interferences on Total and/or Direct Bilirubin and must not be measured. us Liad Moses MD CHEMISTRY ORDERABLES Final Resul t [facility]# [id number] [address] [facility] [place] [address] * Critical Care (02/12/2025 1:22 PM [facility]) Narrative Lida Moses MD - 02/12/2025 1:22 PM [facility] Lida Moses MD 02/13/2025 9:39 AM Critical [...] MD PROCEDURE/MINOR SURGICAL ORDERAB LES Final Result * CBC WITH AUTODIFFERENTIAL (01/16/2025 2:46 PM CDT) Blood Shawn Burnham MD HEMATOLOGY ORDERABLES Final Res ult * CT CHEST W CONTRAST (01/16/2025 2:38 PM CDT) Anatomical Region Laterality Modality Chest Computed Tomogra phy Shawn Burnham MD CT ORDERABLES Final Result from Last 3 Months Insurance MEDICARE PART A AND B [facility] MEDICARE PART A AND B [facility] MEDICARE PART A AND B [facility] Advance Directives For more information, please contact: [phone] * NO CPR (In Event of Cardiopulmonary Arrest) (Latest Code Status on File) Date Activated Date Inactivated Comments 02/12/2025 6:34 PM Question Answer Comments Mechanical Ventilation (for respiratory distress) - Invasive (i.e. intubation): No Mechanical Ventilation (for respiratory distress) - Non-Invasive (i.e. BiPAP, CPAP): Yes * Full Code Date Activated Date Inactivated Comments 10/31/2024 5:46 AM 11/11/2024 5:04 PM Care Teams Wool Mixer Relationship Specialty Start Date End Date Lucila Gomez MD [address] [place] [id number] PCP - General Family Practice 12/14/22
--- OUTSIDE RECORDS SUMMARY | 2025-02-13 10:19 | XMS_ITS | Encounter Summary ---
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 Oncology and Hematology - [place] [address] [place] [address] Shawn Burnham MD [address] [facility] [address] [place] [address] 03/24/2025 9:15 AM BUSINESS PRACTICES SUPERVISOR Office Visit [facility] Oncology and Hematology - [place] [address] [facility] [address] [place] [address] Shawn Burnham MD [address] [facility] [address] [place] [address] documented as of this encounter Visit Diagnoses Not on filedocumented in this encounter Care Teams Supervisor Stitching Department Relationship Specialty Start Date End Date Lucila Gomez MD [address] [place] [address] PCP - General Family Practice 12/14/22 documented as of this encounter
--- OUTSIDE RECORDS SUMMARY | 2025-02-13 10:19 | XMS_ITS ---
Author Organization [facility] Nuno cr [facility] Address [address] [facility] [address] Care Team Providers Care Social Studies Teacher Name Role Phone Lucila Gomez MD Primary Care Provider [phone] Active Problems Problem Noted Date Diagnosed Date [...] Automatic Entry Manual Entr y Effective Dose 100.99 mSv 100.99 mSv 0 mSv Total DLP 12,646.59 DLP 12,646.59 DLP 0 DLP CTDIvol Max 264.56 mGy 264.56 mGy 0 mGy CTDIvol Min 63.66 mGy 63.66 mGy 0 mGy
--- OUTSIDE RECORDS SUMMARY | 2025-02-13 10:19 | XMS_ITS | Clinical Summary ---
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
--- OUTSIDE RECORDS SUMMARY | 2025-02-13 10:19 | XMS_ITS | Clinical Summary ---
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 Gender Identity Not on file Sexual Orientation Not on file Plan of Treatment Health Maintenance Due Date Last Done Comments DTaP, Tdap and Td Vaccines ( 1 - Tdap) 1954 Pneumococcal Vaccine: 50+ Ye ars (1 of 1 - PCV) 1987 Zoster Vaccines (1 of 2) 1987 RSV Immunization or 60+ Years (1 - 1-dose 75+ series) 2012 COVID-19 Vaccine ( - 2024-2 6 season) 2024 Influenza Adult (#1) 2025 Hepatitis A Vaccines Aged Out No long er eligible based on patient's age to complete this topic Meningococcal B Vaccine Aged Out No l onger eligible based on patient's age to complete this topic Meningococcal Vaccine Aged Out No yennifer lore eligible based on patient's age to complete this topic RSV Immunizations Under 20 Months Aged Out No longer eligible based on patient's age to complete this topic
== END 2025-02-12 14:53 | disposition short-term general hospital (02) ==
PROVIDERS: Emergency Provider Physician Assistant; PCP Family Medicine Adolescent Medicine
DX: S06.300A Unspecified focal traumatic brain injury without loss of consciousness, initial encounter (principal); S22.43XA Multiple fractures of ribs, bilateral, initial encounter for closed fracture; S22.010A Wedge compression fracture of first thoracic vertebra, initial encounter for closed fracture; C34.92 Malignant neoplasm of unspecified part of left bronchus or lung; C34.91 Malignant neoplasm of unspecified part of right bronchus or lung; J43.9 Emphysema, unspecified; M06.9 Rheumatoid arthritis, unspecified; M85.80 Other specified disorders of bone density and structure, unspecified site; G47.33 Obstructive sleep apnea (adult) (pediatric); Z85.828 Personal history of other malignant neoplasm of skin; Z86.718 Personal history of other venous thrombosis and embolism; Z87.891 Personal history of nicotine dependence; N32.9 Bladder disorder, unspecified; J98.4 Other disorders of lung; I45.10 Unspecified right bundle-branch block; I73.9 Peripheral vascular disease, unspecified; M11.261 Other chondrocalcinosis, right knee; V49.50XA Passenger injured in collision with unspecified motor vehicles in traffic accident, initial encounter
CPT/HCPCS: 36415; 70450; 71045; 71260; 72125; 73080; 73564; 74177; 80053; 84484; 85025; 93005; 99291; Q9967

== ENCOUNTER 2025-03-17 08:12 | Outpatient (CLI) | payer MEDICARE, SELFPAY ==
--- NOTE | ~2025-03-17 | CT_ITS ---
EXAMINATION:CT diagnostic chest w con DATE: 03/17/2025 09:39 INDICATION: History of small cell carcinoma. Follow-up. TECHNIQUE: Computed tomography (CT) of the chest was performed without intravenous contrast. Automated exposure control and iterative reconstruction technique were employed. The dose-length product (DLP) was 200.47 mGy-cm. COMPARISON: CT chest dated 02/12/2025. FINDINGS: No evidence of supraclavicular mass. No axillary adenopathy. 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 Stable 10 mm nodule in the left upper lobe posterior segment. Dominant noncalcified nodule of left lower lobe measures 18.5 mm compared with 16 mm on 02/12/2025. Stable right lung nodules measuring up to 9 mm in size. Small right pleural effusion. No pericardial effusion. No lytic or blastic lesions of the thoracic spine sternum and ribs. Old rib fractures are noted again. Old compression fracture of L1 vertebra is also noted again. IMPRESSION: 1. Noncalcified dominant nodule in the left lower lobe representing metastatic disease measures 18.5 mm compared with 16 mm on 02/12/2025 12 mm on 01/16/2025. This suggests disease progression. Other metastatic lesions in both lungs are unchanged in size. 2. Small right pleural effusion. 3. Based on the increase in size of the left lower lobe metastatic lesion compared with 01/16/2025 there is evidence to suggest disease progression. Reviewed, dictated and finalized at location T. TS PHYSIOLOGIST IMPRESSION: 1. Noncalcified dominant nodule in the left lower lobe representing metastatic disease measures 18.5 mm compared with 16 mm on 02/12/2025 12 mm on 01/16/2025. T his suggests disease progression. Other metastatic lesions in both lungs are un changed in size. 2. Small right pleural effusion. 3. Based on the increase in size of the left lower lobe metastatic lesion theresa red with 01/16/2025 there is evidence to suggest disease progression.
--- NOTE | ~2025-03-17 | MR_ITS ---
EXAMINATION: MR brain/brain stem wo/w con DATE: 03/17/2025 09:26 INDICATION: Small cell carcinoma. TECHNIQUE: Magnetic resonance imaging (MRI) of the brain and brainstem was performed without and with 16 mL MultiHance intravenous contrast. COMPARISON: Brain MRI 05/20/2024 FINDINGS: There are 6 scattered enhancing masses in the brain with the largest measuring 15 mm in right cerebellum. The mass in right temporal lobe contains old blood products. There is vasogenic edema around some of the masses. There is no acute ischemic infarct. There are scattered areas of nonspecific increased T2-weighted signal intensity in the cerebral white matter, which is within normal limits for the patient's age. The ventricles are normal in size. There is mild mucosal thickening in the paranasal sinuses. There are likely changes of ocular lens replacement surgeries. There is a small right mastoid effusion. IMPRESSION: 1. New masses in the brain, consistent with metastatic disease. Reviewed, dictated and finalized at location E. P
== END 2025-03-17 08:13 | disposition home or self-care (01) ==
PROVIDERS: PCP Family Medicine; Visit Provider Internal Medicine Hematology & Oncology
DX: C80.1 Malignant (primary) neoplasm, unspecified (principal); J90 Pleural effusion, not elsewhere classified; R91.8 Other nonspecific abnormal finding of lung field
CPT/HCPCS: 70553; 71260; A9577; Q9967